=== PATIENT | female | born 1960 | race Caucasian/White ===

== ENCOUNTER → 2023-07-07 19:08 | Outpatient (REF) | payer BC, SELFPAY | LOC: MRI 19:08 | PROVIDERS: ATTENDING PHYSICIAN Nurse Practitioner Adult Health; FAMILY PHYSICIAN Nurse Practitioner | DX: G43.011 Migraine without aura, intractable, with status migrainosus (principal); R90.89 Other abnormal findings on diagnostic imaging of central nervous system | CPT/HCPCS: 70553; A9575 ==

== ENCOUNTER 2023-07-25 22:47 | Inpatient (IN) | payer BC, SELFPAY ==
[2023-07-25 16:34] VITALS: BP 146/74
[2023-07-25 16:59] LABS: % Basophils 0.2 % (0-2); % Eosinophils 0.2 % (0-6); % Immature Granulocytes 0.4 % (0-0.5); % Lymphocytes 1.4 % (20.5-51.1); % Monocytes 2.3 % (1.7-9.3); % Neutrophils 95.5 % (42.2-75.2); Absolute Immature Granulocytes 0.1 10^3/uL (0-0.05); Absolute Lymphocytes 0.2 10^3/uL (1.2-3.4); Absolute Monocytes 0.4 10^3/uL (0.1-0.6); Absolute Neutrophils 16.5 10^3/uL (1.4-6.5); Hematocrit 32.7 % (37.0-47.0); Hemoglobin 11.2 g/dL (12.0-16.0); Mean Corp Hgb Conc. 34.3 g/dL (33.0-37.0); Mean Corpuscular Hgb 30.8 pg (27.0-31.0); Mean Corpuscular Volume 89.8 fL (81.0-99.0); Mean Platelet Volume 9.6 fL (7.4-10.4); Nucleated Red Blood Cells % 0 %; Platelet Count 391 10^3/uL (130-400); Red Blood Cell Count 3.64 10^6/uL (4.20-5.40); Red Cell Dist. Width 13.5 % (11.5-14.5); White Blood Cell Count 17.2 10^3/uL (4.8-10.8)
[2023-07-25 17:14] LABS: COVID-19 Antigen Negative (Negative)
[2023-07-25 17:30] LABS: ALT (SGPT) 20 U/L (0-35); AST (SGOT) 30 U/L (14-36); Albumin 3.6 g/dl (3.5-5.0); Alkaline Phosphatase 91 U/L (38-126); Blood Urea Nitrogen 14 mg/dl (7-17); Calcium 9.2 mg/dl (8.4-10.2); Carbon Dioxide 29 mmol/L (22-30); Chloride 94 mmol/L (98-107); Glucose 198 mg/dl (70-99); Potassium 3.6 mmol/L (3.5-5.1); Sodium 133 mmol/L (135-145); Total Bilirubin 0.7 mg/dl (0.2-1.3); Total Protein 6.8 g/dl (6.3-8.2); eGFR > 60.00
[2023-07-25 20:01] VITALS: BMI 20.5
[2023-07-25 20:05] VITALS: BP 146/75
[2023-07-25] MEDS: DUONEB 3 ML INH (21:02)
[2023-07-25] MEDS: DECADRON 10 MG IV (21:15)
[2023-07-25 21:29] LABS: NT-proBNP 161 pg/ml
--- NOTE | 2023-07-25 21:38 | HPS.HSE ---
Family Physician
-
Family Physician: FCO Castellanos
Chief Complaint
-
sob
cough
History of Present Illness
63-year-old with past medical history for sarcoidosis presented to us with productive cough, short of breath since Tuesday short of breath worse with activity her oxygen was low in 60s at home with ambulation. Patient thinks she may have had a
fever at home over the weekend. Patient did not check the temperature. Stated headache. Denied dizziness focal episode. Patient was nauseous at home. Denied abdominal pain, vomiting, diarrhea. Patient denied dysuria, hematuria.
High 80s on room air. Patient received dose of steroids, antibiotics in the ER. Chest x-ray with severe sarcoidosis. Further management.
Medical History
Past Medical History
Past Medical History: Reports Other
Additional Past Medical History:
Sacral disease
General anxiety disorder
Past Surgical History: Reports Other
Additional Past Surgical History:
Cholecystectomy
Bilateral breast implants
Social History
Alcohol: None
Drug: None
Personal:
Living: With Family
Family History
Family History: Not pertinent
Allergies / Home Medications
Allergies reflects when Allergies were last updated in [facility].
Home Medications with original date entered in [facility]
Allergy/Medication List:
Allergies
Allergy/AdvReac Type Severity Reaction Status Date / Time
hydromorphone HCl AdvReac Nausea / Verified 07/25/23 16:34
[From Dilaudid] Vomiting
Home Medications
albuterol sulfate 90 mcg/actuation aerosol inhaler (Ventolin HFA) 1 puff inhalation PRN PRN sob 08/14/14
azathioprine 50 mg tablet 150 mg PO DAILY 08/14/14
bupropion HCl 150 mg tablet,12 hr sustained-release 450 mg PO DAILY 08/14/14
cetirizine 10 mg tablet 10 mg PO DAILY 08/14/14
fluticasone 250 mcg-salmeterol 50 mcg/dose blistr powdr for inhalation (Advair Diskus) 1 puff inhalation PRN PRN sob 08/14/14
hydrocodone 5 mg-acetaminophen 300 mg tablet (Vicodin) 1 ea PO PRN PRN pain 08/14/14
hydrocodone 5 mg-acetaminophen 325 mg tablet 1 tab PO Q4HPRN PRN pain #15 tabs 08/14/14
naproxen sodium 220 mg tablet (Aleve) 220 mg PO DAILY 08/14/14
ondansetron HCl 4 mg tablet 8 mg PO PRN PRN nausea 08/14/14
Review of Systems
-
Constitutional: Reports Fever
EENT: Reports No Symptoms
Respiratory: Reports Cough and Trouble Breathing
Cardiac: Reports No Symptoms
Abdomen/GI: Reports No Symptoms
: Reports No Symptoms
Musculoskeletal: Reports No Symptoms
Skin: Reports No Symptoms
Neurological: Reports No Symptoms
Endocrine: Reports No Symptoms
Hematologic/Lymphatic: Reports No Symptoms
Psych: Reports No Symptoms
Physical Exam
Vital Signs
Vital Signs
Temp Pulse Resp BP Pulse Ox
98.4 F 112 18 146/75 93
07/25/23 16:34 07/25/23 16:34 07/25/23 16:34 07/25/23 20:05 07/25/23 20:15
Physical Exam
General: Well Developed, Well Nourished and No Apparent Distress
HEENT: NormoCephalic, Moist mucous membranes and Atraumatic
Respiratory: Clear
Cardiac: S1/S2 and Regular Rhythm; No Murmur or Rub
GI: Soft, Non Tender, Non Distended and Normal Bowel Sounds; No Organomegaly
Rectal: Deferred by Provider
Musculoskeletal: No Clubbing, No Cyanosis and No Edema
Skin: No Rash
Neuro: AO x 3 and Nonfocal/grossly intact
Psych: Calm
Laboratory Results
-
07/25/23 16:47
07/25/23 16:46
Laboratory Results
Total Bilirubin 0.7 mg/dl (0.2-1.3) 07/25/23 16:46
AST 30 U/L (14-36) 07/25/23 16:46
ALT 20 U/L (0-35) 07/25/23 16:46
Alkaline Phosphatase 91 U/L (38-126) 07/25/23 16:46
Data Reviewed
-
Diagnostic Radiology: Report Reviewed by me
Lab Data: Labs Reviewed by me
Impression/Plan
-
# Acute hypoxemia /sarcoidosis/likely superimposed pna
-sepsis as evident by tachycardia and elevated wbc
-Chest x-ray with impression of SEVERE SARCOIDOSIS with severe interstitial disease and scarring throughout both lungs.Extensive calcified mediastinal lymphadenopathy. Moderate to severe pleural thickening in the superior left hemithorax and mild
pleural thickening in the superior right hemithorax which appears unchanged.
-COVID-negative and influenza
-Ceftriaxone and Zithromax in ER
-hold abx
-Dexamethasone continued
-Continue supplemental oxygen to keep sat greater than 92
-pulmonology consulted
#hyponatremia likely pseudo due to hyperglycemia
-corrected sodium 135
-ctm
#hyperglycemia likely from steroids
-blood sugar elevated in ER
-sliding scale
-obtain a1c in the am
#DVT prophylaxis
-Lovenox
#CODE status
-full code
--- NOTE | 2023-07-25 21:42 | ED.GENMED ---
History of Present Illness
General
Chief Complaint: Breathing Problem
Source: patient
Exam Limitations: none
Time Seen by Provider: 07/25/23 19:59
Nursing documentation reviewed up to this point in time: agreed with
Travel History
Have you had any contact with someone who has COVID-19?: No
Do you have any symptoms of coronavirus? Fever > 100 degrees, chills, cough, shortness of breath, sore throat, loss of taste or smell, muscle aches, or headache?: No
History of Present Illness
History of Present Illness:
63-year-old female past medical history of sarcoidosis depression presenting to the emergency department today with concerns of worsening dyspnea on exertion and low pulse ox with ambulation over the past few days also start cold and flu she had a
temperature a few days ago. Denies any significant leg swelling recent trauma surgery immobilization. Has been taking methotrexate and steroids for her sarcoidosis.
Past History
Past History
ED Past Medical History: Other (sarcoidosis)
ED Past Surgical History: Cholecystectomy, and Other (Breast augmentation)
Social History
Tobacco: Non-smoker
Alcohol: Occasional
Drug: None
Personal:
Living: with family
Employment: Not employed
Review of Systems
Review of Systems
Allergies reviewed?: Yes
All Other Systems: ROS reviewed and negative except as documented in HPI and ROS
Phy Exam
Physical Exam
Physical Exam:
GENERAL: Alert , in no apparent distress
EYE: pupils equal and reactive
NECK: Supple, no significant adenopathy.
ENT: o/p clr, mmm.
CARDIAC: Regular rate and rhythm .
LUNGS: Some degree of rhonchi to the right lower lobe otherwise diminished
ABDOMEN: Soft, without focal tenderness, no r/g, no cvat
NEUROLOGICAL: Alert and oriented, no focal neuro deficits
SKIN: Warm and dry, skin intact.
MUSCULOSKELETAL: No edema, well perfused.
PSYCH: Normal and appropriate interaction.
Scores
Heart Failure Risk
Heart Failure Risk Score: Not Applicable
Course
Orders/Labs/Results
Orders:
Orders
07/25/23 16:38
Chest [CR Chest - 2 Views ] Urgent
Comment:
Reason For Exam: SOB
07/25/23 16:46
Comprehensive Metabolic Panel Urgent
07/25/23 16:47
COVID-19 Antigen Urgent
Source: Nasal Swab
Complete Blood Count/With Diff Urgent
NT-proBNP Urgent
Comment: ADD ON
INF RAPID [Influenza A+B Rapid Molecular] Urgent
CLARI Source: Nasal Swab
Specimen Description:
07/25/23 19:59
Add On- LAB Urgent
Tests Added?: BNP
07/25/23 20:51
Dexamethasone Sod Phosphate [Decadron] 10 mg IV NOW STA
Ipratropium/Albuterol Sulfate [Duoneb] 3 ml INH R NOW ONE
07/25/23 21:30
Azithromycin [Zithromax] 500 mg PO NOW STA
CefTRIAXone [Rocephin] 2,000 mg IV NOW STA
07/25/23 21:42
Sterile Water [Sterile Water For Injection] 20 ml .ROUTE .STK-MED
07/25/23 21:47
Acetaminophen [Tylenol] 650 mg PO NOW STA
07/25/23 21:50
Acetaminophen [Tylenol] 650 mg .ROUTE .STK-MED ONE
07/25/23 21:54
Admit/Transfer Patient As Directed
Co-Sign Provider:
Level of Care: Inpatient admission
Assign to:: Telemetry
Physician / Group: [email or web address]
Diagnosis: sarcodiosis
Reason for Telemetry: Arrhythmia
Date to Stop Telemetry: 07/28/23
Time to Stop Telemetry: 11:00
Reason for Hospitalization: sarcoidosis
Expected length of stay greater than two midnights?: Yes
ELOS- Estimated Length of Stay in days: 3
I certify the patient meets the requirements for IP care: Yes
07/25/23 21:58
Code Status As Directed
Resuscitation Status: Full Code
07/25/23 22:00
Flush (0.9% Sodium Chloride) [Flush (Nss)] See Dose Instructions IV PER PROTOCOL
07/28/23 11:00
DC Protocol for Telemetry ONCE
Abnormal Lab Results
07/25/23 07/25/23
16:46 16:47
WBC 17.2 H 10^3/uL
(4.8-10.8)
RBC 3.64 L 10^6/uL
(4.20-5.40)
Hgb 11.2 L g/dL
(12.0-16.0)
Hct 32.7 L %
(37.0-47.0)
Abs Immat Gran (auto) 0.1 H 10^3/uL
(0-0.05)
Absolute Neuts (auto) 16.5 H 10^3/uL
(1.4-6.5)
Absolute Lymphs (auto) 0.2 L 10^3/uL
(1.2-3.4)
Neutrophils % 95.5 H %
(42.2-75.2)
Lymphocytes % 1.4 L %
(20.5-51.1)
Sodium 133 L mmol/L
(135-145)
Chloride 94 L mmol/L
(98-107)
Glucose 198 H mg/dl
(70-99)
07/25/23 16:47
07/25/23 16:46
Vital Signs
Initial and Last Documented VS:
Initial Vital Signs
Temp Pulse Resp BP Pulse Ox
98.4 F 112 18 146/74 94
07/25/23 16:34 07/25/23 16:34 07/25/23 16:34 07/25/23 16:34 07/25/23 16:34
Last Documented Vital Signs
Temp Pulse Resp BP Pulse Ox
98.4 F 112 18 146/75 93
07/25/23 16:34 07/25/23 16:34 07/25/23 16:34 07/25/23 20:05 07/25/23 20:15
MDM/Problems Addressed
MDM/Problems Addressed:
63-year-old female presenting to the emergency department today with concerns of worsening shortness of breath with exertion and low pulse ox with ambulation as well as subjective fevers over the past few days. Upon arrival here but tachycardic to
110s white count 17.2 with left shift otherwise BNP not significantly elevated chest x-ray showing some very severe likely sarcoidosis findings. Concerning her left shift and white count as well as being immunosuppressed patient was started on
antibiotics for possible superimposed pneumonia. Also was given nebs and steroids. Plan to admit for further monitoring and treatment.
*Critical Care Note
Total Time (30-74mins, 75-104mins- exclusive of procedures): Not Applicable
ED Attending Note
-
Portions of this chart may have been created with voice recognition software.� Occasional wrong word or��sound alike� substitutions may have occurred due to the inherent limitations of voice recognition software.
Discharge Plan
Departure
Patient Disposition: Admit
Date of Disposition: 07/25/23
Time of Disposition: 22:13
Admit to: Telemetry
Admit to doctor: Jose Luisy
Presentation/result/management discussed w/ accepting MD/DO: Hospitalist
Patient with high blood pressure during this ER visit?: No
Condition: Good
Covid-19: Not Applicable
Discharge Problem:
Sarcoidosis, Hypoxemia
Prescriptions:
No Action
bupropion HCl 150 MG tablet sustained-release 12 hr
150 mg PO DAILY@1400
Patient Comments:
07/25/2023: taken w/ 300mg = 450mg
ondansetron HCl 4 MG tablet
4 mg PO Q12H PRN (Reason: nausea)
albuterol sulfate [Ventolin HFA] 90 MCG/PUFF HFA aerosol inhaler
2 puff inhalation R Q6 PRN (Reason: sob/wheezing)
prednisone 5 mg tablet
15 mg PO DAILY@1400
methotrexate sodium 2.5 mg tablet
7.5 mg PO ALANIZ
folic acid 1 mg tablet
1 mg PO DAILY@1400
omeprazole magnesium [Prilosec OTC] 20 mg Tablet,Delayed Release (Dr/Ec)
20 mg PO DAILY@1400
bupropion HCl 300 mg tablet extended release 24 hr
300 mg PO DAILY@1400
Patient Comments:
07/25/2023: taken w/ 150mg = 450mg
Referrals:
Stefany Toribio CRNP [Family Provider] -
Interventions
Interventions:
*Risk Screen - Suicide Last Done: 07/25/23 16:34
*General Assessment Last Done: 07/25/23 16:34
*Neglect/Abuse Screening Last Done: 07/25/23 21:56
ED- Fall Risk Assessment Last Done: 07/25/23 20:01
*ED COVID-19 Vaccine History Last Done: 07/25/23 16:34
ED- Cardiac Assessment Last Done: 07/25/23 20:01
ED- Pulmonary Assessment Last Done: 07/25/23 20:01
Discharge Date and Time
Print Language: GEORGIAN
[2023-07-25] MEDS: ZITHROMAX 500 MG PO (21:45)
[2023-07-25] MEDS: ROCEPHIN 2000 MG IV (21:45)
[2023-07-25] MEDS: TYLENOL 650 MG PO (21:51)
[2023-07-25 22:00] VITALS: BP 135/67
--- NOTE | 2023-07-25 22:25 | W.PN.UPDATE ---
Update Note
Progress Note Update
This note serves as an addendum to the H&P by instructional services librarian VIPUL Mara GAO on 07/25/23
HPI:
63F HX sarcoidosis, chr prednisone dependent, not on home O2 f/u au [facility] Pul group pw confestive cough but unable to produce sputun, progresiived Hernández over 1 week. Reported feverish without chills at home but not recorded T.
No fever at ER.
POx 80 on RA.
HX Sarcoid or 15 yrs
On and off on Imuran
5 yrs ago filed to respond to immuran
On chronic prednisone 20 mg daily till April 2023
In April this yr , reduced PO prednisone to 15 mg and added MTX
Follow [facility] Primary Pul Dr Elizondo at [facility]/ [facility]
ROS
No CP
POS ROMERO
No abdominal pain, vomiting, diarrhea.
At ER: VS: Afebrile ST 112 BP 145/ 75 POx 93 on RA
CXR: severe sarcoidosis
PMHx;
Sarcoidosis
General anxiety disorder
PSHx
Cholecystectomy
Bilateral breast implants
Reviewed VS: Afebrile ST 112 BP 145/ 75 POx 93 on RA
PE:
Gen: NAD, not toxic
HEENT: anicteric , moist OM
Neck: supple, no JVD
Lungs:
Cor: RRR ST , no mm
Abdomen: soft benign
INKER MACHINE: AAO3, NFND
MS: no edema
Psych: calm
Data
WCC 17 - bl 7.9
NEG Covid
NEG Flu A & B
CXR
1. SEVERE SARCOIDOSIS with severe interstitial disease and scarring throughout both lungs.
2. Extensive calcified mediastinal lymphadenopathy.
3. Moderate to severe pleural thickening in the superior left hemithorax and mild pleural thickening in the superior right hemithorax which appears unchanged.
No prior hospitalist admission:
ASSESSMENT & PLAN
Progressive SoB with episodes of exertional hypoxia as low as 60 % at home but at ER as low as 93 %
Underlying severe sarcoidosis ILDz flare
Extensive calcified mediastinal lymphadenopathy.
Moderate to severe pleural thickening i appears unchanged.
- NEG Covid, Neg Flu A & B
- check PCT
- check SHARDA level
- ER initiated Ceftriaxone and Zithromax in ER - cont till further eval for Pul in AM
- IV Dexamethasone 4mg q12h. At home in place of PO Prednisone 15 mg daily at home
- cont. MTX weekly on Tuesday
- Continue supplemental O3 to keep sat greater than 92
- Home O2 evaluation prior to DC
- Pul consult
HX Sarcoid or 15 yrs
On and off on Imuran for last 5 yrs
5 yrs ago noted failed to respond to Imuran and chronic prednisone 20 mg daily till April 2023
In April this yr , reduced PO prednisone to 15 mg and added MTX in place of Imuran
Follow with Primary Pul [facility] Elizondo [facility]
leukocytosis likely from steroids
-wbc 17
-afebrile
- Trend WCC
Hyponatremia likely pseudo due to hyperglycemia
-corrected sodium 135
Hyperglycemia suspect steroid induced
Denied HX DM
- check A1
- add ISS low
DVT Px: LMWH
Code: Full
IP TLM
[2023-07-25 23:00] VITALS: BP 135/72
[2023-07-25 23:59] LABS: Procalcitonin < 0.05 ng/ml (0.0-0.25)
[2023-07-26] VITALS (11 sets, daily range): BP systolic 121–167; BP diastolic 70–92; BMI 19.9
[2023-07-26 06:39] LABS: Hemoglobin 11.4 g/dL (12.0-16.0); Mean Corp Hgb Conc. 33.5 g/dL (33.0-37.0); Mean Corpuscular Hgb 30.6 pg (27.0-31.0); Mean Corpuscular Volume 91.2 fL (81.0-99.0); Mean Platelet Volume 9.7 fL (7.4-10.4); Platelet Count 393 10^3/uL (130-400); Red Blood Cell Count 3.73 10^6/uL (4.20-5.40); Red Cell Dist. Width 13.5 % (11.5-14.5); White Blood Cell Count 13.8 10^3/uL (4.8-10.8)
[2023-07-26 07:03] LABS: Blood Urea Nitrogen 11 mg/dl (7-17); Calcium 9.8 mg/dl (8.4-10.2); Carbon Dioxide 29 mmol/L (22-30); Chloride 98 mmol/L (98-107); Estimated Creatinine Clearance 78 ml/min; Glucose 115 mg/dl (70-99); Sodium 136 mmol/L (135-145); eGFR > 60.00
[2023-07-26 07:08] LABS: Potassium 4.3 mmol/L (3.5-5.1)
[2023-07-26] MEDS: DECADRON 4 MG IV ×2 (08:32→17:00)
[2023-07-26 09:29] LABS: Glucose - Point of Care 110 mg/dl (70-99)
[2023-07-26 09:31] LABS: Glycohemoglobin (HgbA1c) 5.9 % (4.0-5.6)
--- NOTE | 2023-07-26 10:16 | CON.PUL ---
Consultation
Consultation Request
Date/Time Consultation Requested: 07/25/2023 - 2340
Date/Time Consultation Performed: 07/26/2023 - 954
Requesting Provider: FCO Deleon
Performing Provider: Justice Bustillo MD
Reason for Consultation: Hypoxia; hx of sarcoidosis
Medical History
-
Chief Complaint: SOB
History of Present Illness:
63-year-old female with a past medical history of sarcoidosis, migraine headaches, LILIAN and insomnia who presents with shortness of breath and hypoxia with ambulation. She feels that she also has a cold. Patient afebrile in the ER to 98.4 �F,
tachycardic to 112, breathing at 18 breaths/min, saturating 94% on room air and BP 146/74. Labs showed leukocytosis to 17.2, Hb 11.2, sodium 133, serum chloride 94, glucose 198, procalcitonin <0.05. COVID antigen negative. Flu A/B swab also
negative. CXR shows severe reticulonodular interstitial disease throughout both lungs, upper lobe predominantly, with chronic opacities seen in the left upper lobe and lower lobe predominant GGO. Patient admitted to the hospitalist service,
started on antibiotics for possible CAP, also started on steroids with Decadron and now pulmonary consulted for additional recommendations.
When I saw the patient she was in bed, daughter at bedside, and patient was on 3 L/min nasal cannula breathing comfortably. She says she started to feel sick on Tuesday and then her symptoms be continuously progressed and that is what landed her
here in the ER. 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 After rest it only improved to 81%. 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 She follows with Dr. Elizondo at
[facility]. She is currently on methotrexate and prednisone 15mg daily. She had tried Imuran from December-March 2023, but her dry cough and fatigue persisted so it was stopped. She says she was diagnosed initially with sarcoidosis here
[facility] 'years ago' via a CXR. She never obtained a Bx before of her lung or skin, other organ. She has never required oxygen before. She feels like she has phlegm in her chest but she cannot get it out. She checks her home pulse
oximetry from time to time and it is usually over 90-94%. She currently denies headache, chest pain, abdominal pain, diarrhea, fevers or chills.
PMHx: LILIAN, pulmonary sarcoidosis, history of OCD, migraine headaches, insomnia
PSHx: Cholecystectomy, breast augmentation (1997), section (2004)
Past Medical History
Past Medical History: Other (Above as per HPI)
Past Surgical History: Other (Above as per HPI)
Social History
Tobacco: Former Smoker (Quit >10 years ago)
Alcohol: Occasional
Drug: None
Family History
Family History: CAD (Father), Cancer (Mother: Uterine cancer (father: Prostate cancer) and Other (Father: Hypercholesterolemia)
Allergies / Home Medications
Allergies
Allergy/AdvReac Type Severity Reaction Status Date / Time
hydromorphone HCl Allergy Nausea / Verified 07/25/23 23:42
[From Dilaudid] Vomiting
Home Medications
�Medication �Instructions �Recorded �Confirmed �Last Taken �Type
albuterol sulfate 90 mcg/actuation 2 puff inhalation R Q6 PRN 08/14/14 07/25/23 08/14/14 History
aerosol inhaler (Ventolin HFA) sob/wheezing
bupropion HCl 150 mg tablet,12 hr 150 mg PO DAILY@1400 depression 08/14/14 07/25/23 07/25/23 History
sustained-release
ondansetron HCl 4 mg tablet 4 mg PO Q12H PRN nausea 08/14/14 07/25/23 07/24/23 History
bupropion HCl 300 mg 24 hr tablet, 300 mg PO DAILY@1400 07/25/23 07/25/23 07/25/23 History
extended release
folic acid 1 mg tablet 1 mg PO DAILY@1400 depression 07/25/23 07/25/2307/24/24 History
methotrexate sodium 2.5 mg tablet 7.5 mg PO ALANIZ sarcoidosis 07/25/23 07/25/23 8 Days Ago History
~07/17/23
omeprazole magnesium 20 mg 20 mg PO DAILY@1400 07/25/23 07/25/23 07/25/23 History
tablet,delayed release (Prilosec Gastrointestinal Issue
OTC)
prednisone 5 mg tablet 15 mg PO DAILY@139907/25/23 07/25/23 07/25/23 History
Anti-Inflammatory
Review of Systems
-
History Source: Patient
All other systems: Negative unless noted (12 point ROS performed and is negative unless mentioned above.)
Vitals / Labs / Diagnostic Testing
Vital Signs
Temp Pulse Resp BP Pulse Ox
97.8 F 102 23 143/72 97
07/26/23 07:52 07/26/23 09:00 07/26/23 09:00 07/26/23 07:00 07/26/23 09:03
Lab Data
07/26/23 06:20
07/26/23 06:20
Microbiology
07/25/23 16:47 Nasal Swab Influenza Types A & B (DIPIKA) - Final
Negative for Influenza A & B, NAAT
Negative results must be combined with clinical observations
and patient history.
Nucleic Acid Amplification test (NAAT)performed on the
[employer] platform.
Diagnostic Testing:
Physical Exam
-
HEENT: Normocephalic and Anicteric
Cardiovascular: S1/S2 and Peripheral Edema (negative)
Respiratory: Wheeze (negative), Rales (bilaterally in upper lobes predominantly), Rhonchi (negative), Non-Labored Respirations and Other (Reduced BS at bases b/l)
GI: Soft, Non Distended and Non Tender
Neurology: AO x 3 and Tremors (negative)
Skin: Warm, Dry and Other (no clubbing appreciated)
General: Comfortable and Chills (negative)
Assessment
-
Assessment: 63-year-old female with a past medical history of sarcoidosis, migraine headaches, LILIAN and insomnia who presents with shortness of breath and hypoxia with ambulation. She feels that she also has a cold. Patient afebrile in the ER to
98.4 �F, tachycardic to 112, breathing at 18 breaths/min, saturating 94% on room air and BP 146/74. Labs showed leukocytosis to 17.2, Hb 11.2, sodium 133, serum chloride 94, glucose 198, procalcitonin <0.05. COVID antigen negative. Flu A/B swab
also negative. CXR shows severe reticulonodular interstitial disease throughout both lungs, upper lobe predominantly, with chronic opacities seen in the left upper lobe and lower lobe predominant GGO. Patient admitted to the hospitalist service,
started on antibiotics for possible CAP, also started on steroids with Decadron and now pulmonary consulted for additional recommendations.
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
Impression:
#Acute hypoxic respiratory failure due to ILD/sarcoidosis flare - I suspect she was exposed to a respiratory virus and that triggered a flare
#Pulmonary sarcoidosis with extensive mediastinal LN - stage IV on MTX and chronic prednisone (15mg daily)
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
#Suspected CAP (likely viral)
#Anemia
#Hyperglycemia - improved
Plan:
- Continue systemic steroids and wean as tolerated --> change from decadron 4mg IV q12hr to solumedrol 40mg IV q6hr
- Continue empiric Abx but with negative procal and CXR unchanged from prior in Mar 2023, unclear if she even needs Abx
- Given her unchanged CXR and her continued SOB and acute hypoxia, check CT chest to assess lung parenchyma better
- Hold MTX for now
- Trend WBC
- Check sputum Cx if she can produce a decent sample
- Start mucinex
- Maintain SpO2 >90-94% with supplemental O2 as needed
- Incentive spirometer
- Replete electrolytes with K>4, Mg>2
- Maintain euglycemia with goal BG >100 and <180
- prn nebulized bronchodilators
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 Elizondo from [facility]
- DVT ppx
Pulmonary service will continue to follow along.
Total time spent today was 75 minutes for this encounter. Time includes reviewing laboratory test/imaging results, reviewing pertinent medical records, obtaining and reviewing medical history, performing an appropriate exam, ordering medications,
tests and procedures. Time also includes documentation of this encounter, coordinating patient care and communicating with other healthcare professionals. Total time does not include separately billed tests performed on this date of service.
Data:
CXR 07-25-2023:
1. SEVERE SARCOIDOSIS with severe interstitial disease and scarring throughout both lungs.
2. Extensive calcified mediastinal lymphadenopathy.
3. Moderate to severe pleural thickening in the superior left hemithorax and mild pleural thickening in the superior right hemithorax which appears unchanged.
--- NOTE | 2023-07-26 11:29 | W.PN.HOSP.TC ---
Today's Communication/Plan
-
Continue with current treatments
Wean oxygen
Await pulmonary input.
Assessment / Plan
Assessment / Plan
# Acute hypoxic respiratory insufficiency - pt with severe sarcoidosis with recent change in regimen to steroids and MTX .
Her symptoms started after having upper respiratory tract infection symptoms including runny nose, cough and scanty phlegm.
-Chest x-ray with impression of SEVERE SARCOIDOSIS with severe interstitial disease and scarring throughout both lungs.Extensive calcified mediastinal lymphadenopathy. Moderate to severe pleural thickening in the superior left hemithorax and mild
pleural thickening in the superior right hemithorax which appears unchanged.
-COVID-negative and influenza
-Procalcitonin normal
-Suspect an acute bronchitis causing his symptoms. Doubt due to sarcoidosis flare but again she had recent changes in treatment regimen cannot can close rule out worsening sarcoidosis. Consult pulmonary.
-hold abx
-Dexamethasone continued
-Continue supplemental oxygen to keep sat greater than 92
-pulmonology consulted
-sepsis as evident by tachycardia and elevated wbc
#hyponatremia mild
-now normal
-ctm
#hyperglycemia likely from steroids
-blood sugar elevated in ER
-HbA1c 5.9
#DVT prophylaxis
-Lovenox
#CODE status
-full code
Anticipated Discharge: 24 - 48 hours
Subjective/Interval History
-
Date of Service: July 26, 2023
Still with cough and need of oxygen
Feels SOB mostly with exertion
Unable to bring phlegm up;no wheezing
Not had to use O2 in past
No CP;no N/V
[place] chills at home but no fevers
Had runny nose prior to this
Objective Data
-
Labs:
Laboratory Results
07/26/23
06:20
WBC 13.8 H
Hgb 11.4 L
Hct 34.0 L
Plt Count 393
Sodium 136
Potassium 4.3
Chloride 98
Carbon Dioxide 29
BUN 11
Creatinine 0.4 L
Glucose 115 H
Calcium 9.8
Vital Signs:
Vital Signs
Temp Pulse Resp BP Pulse Ox
97.8 F 102 23 143/72 97
07/26/23 07:52 07/26/23 09:00 07/26/23 09:00 07/26/23 07:00 07/26/23 09:03
I&O
07/25/23 07/26/23 07/27/23
06:59 06:59 06:59
Output Total 400 / 400
Balance -400 / -400
Review of Systems
-
EENT: Denies Sore Throat
Neuro: Denies Dizzy
Physical Exam
-
General: No Apparent Distress
HEENT: Moist Mucous Membranes
Respiratory: Crackles (left base ;bronchial breathign in right lower zone) and Non Labored Respirations; Negative Wheezes or Accessory Resp Muscle Use
Cardiac: Regular Rhythm and S1/S2
GI: Soft
Musculoskeletal: No Edema
Neuro: AO x 3
Data Reviewed
-
Labs: Labs Reviewed by me
[2023-07-26] MEDS: WELLBUTRIN XL (24 hour extended release) 150 MG PO (14:44)
[2023-07-26] MEDS: FOLVITE 1 MG PO (14:45)
[2023-07-26] MEDS: PROTONIX 40 MG PO (14:45)
[2023-07-26] MEDS: WELLBUTRIN XL (24 hour extended release) 300 MG PO (15:22)
--- NOTE | 2023-07-26 17:45 | PTCARENOTE ---
Received pt from ER.Pt awake, alert and oriented x3. Pt has no c/o pain at this time. VSS 98% on 3L, continues with NPC and PRESCOTT. Pt NSR-ST on tele. Pt oriented to room, call valenzuela within reach, plan of care ongoing.
[2023-07-26 18:06] LABS: Glucose - Point of Care 136 mg/dl (70-99)
[2023-07-26] MEDS: NOVOLOG FLEXPEN-LOW RESISTANCE SC (18:13)
[2023-07-26] MEDS: LOVENOX 40 MG SC (18:20)
[2023-07-26] MEDS: MUCINEX 1200 MG PO (20:07)
[2023-07-26] MEDS: SOLU-MEDROL PF 40 MG IV (21:34)
[2023-07-26 21:46] LABS: Glucose - Point of Care 156 mg/dl (70-99)
[2023-07-27 03:35] VITALS: BP 137/77
[2023-07-27] MEDS: SOLU-MEDROL PF 40 MG IV ×3 (04:40→18:07)
--- NOTE | 2023-07-27 04:53 | DOWNTIME ---
There was a [employer] Client Director [employer]ris Downtime on 07/27/2023 from 0100 to 07/27/2023 at 0439. Downtime documentation of patient's care, including medication administrations, has been reconciled in the electronic record per guidelines. Refer to the
patient's paper chart under the miscellaneous tab to see printed paper medication records and downtime forms.
[2023-07-27 07:30] VITALS: BP 134/85
[2023-07-27 07:38] LABS: Glucose - Point of Care 124 mg/dl (70-99)
[2023-07-27] MEDS: NOVOLOG FLEXPEN-LOW RESISTANCE SC (07:47)
--- NOTE | 2023-07-27 07:48 | W.PN.PUL3 ---
Today's Communication / Plan
-
Systemic steroids with wean as she clinically improves
Supportive care
Supplemental oxygen to maintain SpO2 >90-94%
Ambulatory pulse oximetry prior to discharge
Mucolytucs
Check sputum Cx if pt can produce decent sample
Assessment
-
Assessment: 63-year-old female with a past medical history of sarcoidosis, migraine headaches, LILIAN and insomnia who presents with shortness of breath and hypoxia with ambulation. She feels that she also has a cold. Patient afebrile in the ER to
98.4 �F, tachycardic to 112, breathing at 18 breaths/min, saturating 94% on room air and BP 146/74. Labs showed leukocytosis to 17.2, Hb 11.2, sodium 133, serum chloride 94, glucose 198, procalcitonin <0.05. COVID antigen negative. Flu A/B swab
also negative. CXR shows severe reticulonodular interstitial disease throughout both lungs, upper lobe predominantly, with chronic opacities seen in the left upper lobe and lower lobe predominant GGO. Patient admitted to the hospitalist service,
started on antibiotics for possible CAP, also started on steroids with Decadron and now pulmonary consulted for additional recommendations.
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
Impression:
#Acute hypoxic respiratory failure due to acute pneumonitis likely due to viral CAP, inducing an ILD/sarcoidosis flare
#Pulmonary sarcoidosis with extensive mediastinal LN - stage IV on MTX and chronic prednisone (15mg daily)
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
#CAP (viral)
#Anemia
#Hyperglycemia - improved
#Pre-diabetes mellitus (HbA1C: 5.9 - 07/26/2023)
Plan:
- Continue systemic steroids and wean as tolerated --> on 07/25 I changed decadron 4mg IV q12hr to solumedrol 40mg IV q6hr --> will wean this down today to 40mg IV q8hr
- DC Abx given negative procal and CXR unchanged from prior in Mar 2023 and suspected viral etiology to her current acute hypoxia
- Hold MTX for now
- Trend WBC
- Check sputum Cx if she can produce a decent sample
- Continue mucinex
- Maintain SpO2 >90-94% with supplemental O2 as needed with ambulatory pulse oximetry prior to discharge
- Follow up SHARDA level
- Incentive spirometer
- Replete electrolytes with K>4, Mg>2
- Maintain euglycemia with goal BG >100 and <180
- prn nebulized bronchodilators
- Obtain outpatient medical records from her shore worker, Dr. Elizondo from [facility]
- DVT ppx
Pulmonary service will continue to follow along. I advised to the patient that she can follow-up with me/us in the [facility] office, post hospitalization, so we can evaluate her in the short-term, and then she can continue following with her primary
shore worker afterwards. Patient agrees with this plan.
Total time spent today was 35 minutes for this encounter. Time includes reviewing laboratory test/imaging results, reviewing pertinent medical records, obtaining and reviewing medical history, performing an appropriate exam, ordering medications,
tests and procedures. Time also includes documentation of this encounter, coordinating patient care and communicating with other healthcare professionals. Total time does not include separately billed tests performed on this date of service.
Data:
CT Chest without Contrast 07-27-2023:
1. Moderate reticular interstitial thickening and bronchiectasis bilaterally, most pronounced within the upper lobes bilaterally. Calcified mediastinal lymph nodes. Findings are not significant change compared to prior CT, and are consistent with
chronic interstitial lung disease/sarcoidosis.
2. In addition, there is extensive superimposed groundglass opacity bilaterally and diffusely, which is new compared to prior CT dated 01/29/2023. Differential diagnosis includes superimposed infectious or inflammatory alveolitis, exacerbation of
interstitial lung disease, pulmonary hemorrhage, among others.
CXR 07-25-2023:
1. SEVERE SARCOIDOSIS with severe interstitial disease and scarring throughout both lungs.
2. Extensive calcified mediastinal lymphadenopathy.
3. Moderate to severe pleural thickening in the superior left hemithorax and mild pleural thickening in the superior right hemithorax which appears unchanged.
Subjective Data
-
Date of Service:
Date of Service: July 27, 2023
Chief Complaint: Pulmonary Follow Up
Subjective:
Patient seen and evaluated today at bedside. This morning was on 3 L/min nasal cannula but then was weaned down to room air saturating 94%. She still feels very short of breath when she exerts herself. Overall she is better than yesterday but
still not back to baseline. She is short of breath even after walking short distances, i.e. like walking to the bathroom. She denies chest pain, headache, fevers or chills.
Review of Systems
General: Other (Negative unless mentioned above)
Objective Data
Data Reviewed
Vital Signs / I&O / Oxygen:
Vital Signs
Temp Pulse Resp BP Pulse Ox
97.7 F 104 20 137/77 99
07/27/23 03:35 07/27/23 03:35 07/27/23 03:35 07/27/23 03:35 07/27/23 03:35
Intake and Output
07/26/23 07/27/23 07/28/23
06:59 06:59 06:59
Intake Total 960 / 960
Output Total 400 / 400
Balance -400 / -400 960 / 960
SaO2 99
Nasal Cannula flow liters per 3
minute
Physical Exam
General: Respiratory Distress (negative) and Comfortable
Cardiovascular: Peripheral Edema (negative) and Other (Tachycardic)
Respiratory: Wheeze (negative), Crackles (Velcro rales heard upon inspiration in the mid-upper lung mariscal) and Non-Labored Respirations
GI: Soft, Non Distended, Non Tender and Normal Bowel Sounds
Neurology: AO x 3 and Tremors (negative)
Skin: Warm and Dry
Labs/Micro/Reports
Microbiology
07/25/23 16:47 Nasal Swab Influenza Types A & B (DIPIKA) - Final
Negative for Influenza A & B, NAAT
Negative results must be combined with clinical observations
and patient history.
Nucleic Acid Amplification test (NAAT)performed on the
[employer] platform.
[2023-07-27 07:56] LABS: Hematocrit 34.6 % (37.0-47.0); Hemoglobin 11.8 g/dL (12.0-16.0); Mean Corp Hgb Conc. 34.1 g/dL (33.0-37.0); Mean Corpuscular Hgb 30.6 pg (27.0-31.0); Mean Corpuscular Volume 89.6 fL (81.0-99.0); Mean Platelet Volume 9.8 fL (7.4-10.4); Platelet Count 445 10^3/uL (130-400); Red Blood Cell Count 3.86 10^6/uL (4.20-5.40); Red Cell Dist. Width 13.6 % (11.5-14.5); White Blood Cell Count 22.7 10^3/uL (4.8-10.8)
[2023-07-27] MEDS: MUCINEX 1200 MG PO ×2 (08:57→20:15)
[2023-07-27 09:18] LABS: Blood Urea Nitrogen 14 mg/dl (7-17); Calcium 9.9 mg/dl (8.4-10.2); Carbon Dioxide 26 mmol/L (22-30); Chloride 101 mmol/L (98-107); Estimated Creatinine Clearance 77 ml/min; Glucose 114 mg/dl (70-99); Potassium 4.9 mmol/L (3.5-5.1); Sodium 135 mmol/L (135-145); eGFR > 60.00
--- NOTE | 2023-07-27 11:09 | W.PN.HOSP.TC ---
Today's Communication/Plan
-
cw steroids
consult ID
Assessment / Plan
Assessment / Plan
# Acute hypoxic respiratory insufficiency - pt with severe sarcoidosis with recent change in regimen to steroids and MTX .
- Her symptoms started after having upper respiratory tract infection symptoms including runny nose, cough and scanty phlegm.
-Chest x-ray with impression of SEVERE SARCOIDOSIS with severe interstitial disease and scarring throughout both lungs.Extensive calcified mediastinal lymphadenopathy. Moderate to severe pleural thickening in the superior left hemithorax and mild
pleural thickening in the superior right hemithorax which appears unchanged.
- CT chest 07/25-
1. Moderate reticular interstitial thickening and bronchiectasis bilaterally, most pronounced within the upper lobes bilaterally. Calcified mediastinal lymph nodes. Findings are not significant change compared to prior CT, and are consistent with
chronic interstitial lung disease/sarcoidosis.
2. In addition, there is extensive superimposed groundglass opacity bilaterally and diffusely, which is new compared to prior CT dated 01/29/2023. Differential diagnosis includes superimposed infectious or inflammatory alveolitis, exacerbation of
interstitial lung disease, pulmonary hemorrhage, among others.
-COVID-negative and influenza
-Procalcitonin normal
-Suspect an acute bronchitis causing his symptoms. Doubt due to sarcoidosis flare but again she had recent changes in treatment regimen cannot can close rule out worsening sarcoidosis. appt pulmonary input.
-She is feeling bit better -Dexamethasone continued
-hold abx ; consult ID
-Continue supplemental oxygen to keep sat greater than 92
-sepsis as evident by tachycardia and elevated wbc -follow
#hyponatremia mild
-now normal
-ctm
#hyperglycemia likely from steroids
-blood sugar elevated in ER
-HbA1c 5.9
#DVT prophylaxis
-Lovenox
#CODE status
-full code
Anticipated Discharge: > 48 hours
Subjective/Interval History
-
Date of Service: July 27, 2023
Feeling bit better With the breathing; not requiring oxygen. Still a lot of exertional shortness of breath. Still ongoing cough which is mostly dry.
No fever or chills.
Objective Data
-
Labs:
Laboratory Results
07/27/23
07:29
WBC 22.7 H
Hgb 11.8 L
Hct 34.6 L
Plt Count 445 H
Sodium 135
Potassium 4.9
Chloride 101
Carbon Dioxide 26
BUN 14
Creatinine 0.5 L
Glucose 114 H
Calcium 9.9
Vital Signs:
Vital Signs
Temp Pulse Resp BP Pulse Ox
98.6 F 108 18 134/85 93
07/27/23 07:30 07/27/23 07:30 07/27/23 07:30 07/27/23 07:30 07/27/23 07:30
I&O
07/26/23 07/27/23 07/28/23
06:59 06:59 06:59
Intake Total 960 / 960
Output Total 400 / 400
Balance -400 / -400 960 / 960
Review of Systems
-
Constitutional: Denies Fever or Chills
EENT: Denies Sore Throat
Respiratory: Reports Cough and Trouble Breathing
Cardiac: Denies Chest Pain
Abdomen/GI: Denies Abdominal Pain, Nausea or Vomiting
Neuro: Denies Dizzy or Headache
Physical Exam
-
General: No Apparent Distress
HEENT: Moist Mucous Membranes
Respiratory: Crackles (BL basilar areas) and Non Labored Respirations; Negative Wheezes or Accessory Resp Muscle Use
Cardiac: Regular Rhythm, S1/S2 and Tachycardic
GI: Soft
Neuro: AO x 3
Psych: Calm
Data Reviewed
-
CT Scan: Report Reviewed by me (CT A/P)
Labs: Labs Reviewed by me
[2023-07-27 11:14] VITALS: BP 150/88
--- NOTE | 2023-07-27 11:20 | CON.ID ---
Consultation
-
Date/Time Consultation Requested: 07/27/23 10:51
Date/Time Consultation Performed: 07/27/23 11:20
Requesting Provider: Dr Dee
Performing Provider: Dr Roy
Reason for Consultation: Eval for infectious pneumonia
Chief Complaint / Past History
Chief Complaint
shortness of breath, cough
History of Present Illness
Ms Enriquez is a 63 year old female with history of sarcoidosis on prednisone 15 mg PO qday and mtx 7.5 mg weekly, CHF who presented here 07/24 for one week of shortness of breath and NONproductive cough. Not typically on O2. Of note was on imuran
from dec-mar 2023, was on chronic prednisone 20 mg PO daily until 04/2023; she had a history of rash with sulfa. Subjective fever noted over the weekend none since. On the day of admission she reported hypoxemia on home pulse ox to the 60s. Also
some nausea. No dizziness, abdominal pain, vomiting, diarrhea, dysuria, hematuria. 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
Since arrival here she has been afebrile, bp stable, initially saturating 93-98% on 3L now saturating 94% on room air, WBC 17 on arrival 22 today, hgb 11.8, pt 445 today - increased, cr 0.5, a1c 5.9, bnp 161, procal negative at <0.05, covid ag neg,
CT chest: Moderate reticular interstitial thickening and bronchiectasis bilaterally, most pronounced within the upper lobes bilaterally. Calcified mediastinal lymph nodes. Findings are not significant change compared to prior CT, and are consistent
with chronic interstitial lung disease/sarcoidosis. extensive superimposed groundglass opacity bilaterally and diffusely, which is new compared to prior CT dated 01/29/2023, 07/24 CR: severe sarcoidosis. No blood cultures sent thus far - has not
been febrile, covid ag negative, influenza negative, Now on methylprednisone 40 mg IV q6, had doses of azithromycin and ceftriaxone - currently not on antibiotics
Past History
Additional Past Medical History:
LILIAN, pulmonary sarcoidosis, history of OCD, migraine headaches, insomnia
Additional Past Surgical History:
Cholecystectomy
Bilateral breast implants
c section
Allergy History:
hydromorphone HCl [From Dilaudid] Allergy (Verified 07/25/23 23:42)
Nausea / Vomiting
Sulfa (Sulfonamide Antibiotics) Allergy (Verified 07/26/23 18:32)
Rash
Medications Reviewed: Yes
Social History
Tobacco: Non-Smoker
Alcohol: None
Personal:
Family History
Family History: Not Pertinent
Review of Systems
Review of Systems
General: Fever; Negative Chills
All systems: All other systems were reviewed and were negative
Vital Signs
Temp Pulse Resp BP Pulse Ox
97.9 F 106 18 150/88 94
07/27/23 11:14 07/27/23 11:14 07/27/23 11:14 07/27/23 11:14 07/27/23 11:14
Physical Exam
Physical Exam
Constitutional: No Acute Distress and Comfortable
Cardiovascular: Regular Rate and S1/S2; Negative Murmur or Rub
Pulmonary: Symmetric, Wheezes (mild, diffuse) and Coarse; Negative Rales or Rhonchi
Gastrointestinal: Soft, Non Tender, Non Distended and Normal Bowel Sounds
Skin: Warm and Dry; Negative Rash or Jaundice
Neurological: Awake and Tremors
Lab / Diagnostic Study Results
07/27/23 07:29
07/27/23 07:29
Abs Immat Gran (auto) 0.1 10^3/uL (0-0.05) H 07/25/23 16:47
Absolute Neuts (auto) 16.5 10^3/uL (1.4-6.5) H 07/25/23 16:47
Absolute Lymphs (auto) 0.2 10^3/uL (1.2-3.4) L 04/15/24 16:47
Absolute Monos (auto) 0.4 10^3/uL (0.1-0.6) 07/25/23 16:47
Absolute Basos (auto) 0.0 10^3/uL (0-0.2) 07/25/23 16:47
Immature Gran % 0.4 % (0-0.5) 07/25/23 16:47
Neutrophils % 95.5 % (42.2-75.2) H 07/25/23 16:47
Lymphocytes % 1.4 % (20.5-51.1) L 07/25/23 16:47
Monocytes % 2.3 % (1.7-9.3) 07/25/23 16:47
Eosinophils % 0.2 % (0-6) 07/25/23 16:47
Basophils % 0.2 % (0-2) 07/25/23 16:47
Procalcitonin < 0.05 ng/ml (0.0-0.25) 07/25/23 23:17
Microbiology Results
Micro:
07/25/23 16:47 Influenza Types A & B (DIPIKA) - Final
Nasal Swab Negative for Influenza A & B, NAAT
Negative results must be combined with clinical observations
and patient history.
Nucleic Acid Amplification test (NAAT)performed on the
[facility] [employer] platform.
Assessment / Plan
Likely Viral Respiratory Infection vs ILD flare
Pulmonary Sarcoidosis - severe
on chronic prednisone 15 mg qday, Mtx weekly
off of imuran some time
Leukocytosis
- leukocytosis at least partially due to steroids
- appears to be improving on current steroids
- cough is nonproductive, if able to obtain a sample will follow up the culture however low clinical suspicion for bacterial pneumonia
- if fever then would send blood cultures x2
- would not recommend further antibiotics at this time
- last 3 months prednisone dose is not typically associated with opportunistic infections, if not improving could consider further workup however, I am cautiously optimistic that she is already improving
[2023-07-27 12:41] LABS: Glucose - Point of Care 175 mg/dl (70-99)
[2023-07-27] MEDS: NOVOLOG FLEXPEN-LOW RESISTANCE 1 UNITS SC ×2 (12:56→18:05)
[2023-07-27] MEDS: FOLVITE 1 MG PO (15:10)
[2023-07-27] MEDS: PROTONIX 40 MG PO (15:11)
[2023-07-27] MEDS: WELLBUTRIN XL (24 hour extended release) 150 MG PO (15:11)
[2023-07-27] MEDS: WELLBUTRIN XL (24 hour extended release) 300 MG PO (15:11)
[2023-07-27 15:20] VITALS: BP 163/86
--- NOTE | 2023-07-27 16:41 | CM ---
met with patient at bedside.she lives with her in house with 1 isa,her bed and bath is on the second level,he amb i and is i with her adl.her pcp is dr daniel landaverde and she gets her meds from [facility] in [place].
patient with a hx of severe sarcoidosis is adm with cough,seen by pulm who feels she has a virus vs ILD flare.off abx,iv solumedrol,sating 954% on ra.will need home o2 eval prior to discharge home.she has never had a vn or been to ip rehab in
past.she declines a vn when dc home.cm to follow for any home o2 needs.Plan:home with no needs.
[2023-07-27 17:48] LABS: Glucose - Point of Care 171 mg/dl (70-99)
[2023-07-27] MEDS: LOVENOX 40 MG SC (18:06)
[2023-07-27 19:30] VITALS: BP 153/76
[2023-07-27 21:12] LABS: Glucose - Point of Care 186 mg/dl (70-99)
[2023-07-27 22:37] LABS: Angiotensin-1-converting Enzym 29 U/L (16-85)
[2023-07-27] MEDS: MELATONIN 3 MG PO (22:41)
[2023-07-27 23:30] VITALS: BP 155/81
[2023-07-28] MEDS: SOLU-MEDROL PF 40 MG IV ×3 (00:41→17:36)
[2023-07-28 03:30] VITALS: BP 138/80
[2023-07-28 08:11] LABS: Glucose - Point of Care 112 mg/dl (70-99)
[2023-07-28 08:14] VITALS: BP 150/75
[2023-07-28 08:24] LABS: Hematocrit 36.3 % (37.0-47.0); Mean Corp Hgb Conc. 33.1 g/dL (33.0-37.0); Mean Corpuscular Volume 90.8 fL (81.0-99.0); Mean Platelet Volume 10.2 fL (7.4-10.4); Platelet Count 473 10^3/uL (130-400); Red Cell Dist. Width 13.8 % (11.5-14.5); White Blood Cell Count 19.8 10^3/uL (4.8-10.8)
[2023-07-28] MEDS: MUCINEX 1200 MG PO ×2 (08:24→20:20)
[2023-07-28] MEDS: NOVOLOG FLEXPEN-LOW RESISTANCE SC ×3 (08:24→17:41)
--- NOTE | 2023-07-28 08:50 | W.PN.PUL3 ---
Today's Communication / Plan
-
Systemic steroids with wean as she clinically improves
Supportive care
Supplemental oxygen to maintain SpO2 >90-94%
Ambulatory pulse oximetry prior to discharge
Mucolytucs
Check sputum Cx if pt can produce decent sample
Start tessalon perles
Assessment
-
Assessment: 63-year-old female with a past medical history of sarcoidosis, migraine headaches, LILIAN and insomnia who presents with shortness of breath and hypoxia with ambulation. She feels that she also has a cold. Patient afebrile in the ER to
98.4 �F, tachycardic to 112, breathing at 18 breaths/min, saturating 94% on room air and BP 146/74. Labs showed leukocytosis to 17.2, Hb 11.2, sodium 133, serum chloride 94, glucose 198, procalcitonin <0.05. COVID antigen negative. Flu A/B swab
also negative. CXR shows severe reticulonodular interstitial disease throughout both lungs, upper lobe predominantly, with chronic opacities seen in the left upper lobe and lower lobe predominant GGO. Patient admitted to the hospitalist service,
started on antibiotics for possible CAP, also started on steroids with Decadron and now pulmonary consulted for additional recommendations.
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
Impression:
#Acute hypoxic respiratory failure due to acute pneumonitis likely due to viral CAP, inducing an ILD/sarcoidosis flare
#Pulmonary sarcoidosis with extensive mediastinal LN - stage IV on MTX and chronic prednisone (15mg daily)
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
#CAP (viral)
#Anemia
#Hyperglycemia - improved
#Pre-diabetes mellitus (HbA1C: 5.9 - 07/26/2023)
Plan:
- Continue systemic steroids and wean as tolerated --> on 07/25 I changed decadron 4mg IV q12hr to solumedrol 40mg IV q6hr --> yesterday this was weaned to 40mg IV q8hr; will wean this down tomorrow to 40mg IV q12hr
- ABx DC'd given negative procal and CXR unchanged from prior in Mar 2023 and suspected viral etiology to her current acute hypoxia
- Hold MTX for now
- Trend WBC
- Check sputum Cx if she can produce a decent sample
- Continue mucinex
- Start Tessalon Perles for coughing spells; if coughing spell is severe then administer codeine cough syrup
- Maintain SpO2 >90-94% with supplemental O2 as needed with ambulatory pulse oximetry prior to discharge
- SHARDA level 29 on 07/26/2023 (WNL) - this level is a poor indicator of active pulmonary sarcoidosis
- Incentive spirometer
- Replete electrolytes with K>4, Mg>2
- Maintain euglycemia with goal BG >100 and <180
- prn nebulized bronchodilators
- Obtain outpatient medical records from her colored leather setter, Dr. Elizondo from [facility]
- DVT ppx
Pulmonary service will continue to follow along. Patient spoke to her own colored leather setter, Dr. Elizondo, today and she decided she will follow-up with her and not need to see us at the [facility] office. I will remove our information from the patient's chart.
Total time spent today was 35 minutes for this encounter. Time includes reviewing laboratory test/imaging results, reviewing pertinent medical records, obtaining and reviewing medical history, performing an appropriate exam, ordering medications,
tests and procedures. Time also includes documentation of this encounter, coordinating patient care and communicating with other healthcare professionals. Total time does not include separately billed tests performed on this date of service.
Data:
CT Chest without Contrast 07-27-2023:
1. Moderate reticular interstitial thickening and bronchiectasis bilaterally, most pronounced within the upper lobes bilaterally. Calcified mediastinal lymph nodes. Findings are not significant change compared to prior CT, and are consistent with
chronic interstitial lung disease/sarcoidosis.
2. In addition, there is extensive superimposed groundglass opacity bilaterally and diffusely, which is new compared to prior CT dated 01/29/2023. Differential diagnosis includes superimposed infectious or inflammatory alveolitis, exacerbation of
interstitial lung disease, pulmonary hemorrhage, among others.
CXR 07-25-2023:
1. SEVERE SARCOIDOSIS with severe interstitial disease and scarring throughout both lungs.
2. Extensive calcified mediastinal lymphadenopathy.
3. Moderate to severe pleural thickening in the superior left hemithorax and mild pleural thickening in the superior right hemithorax which appears unchanged.
Subjective Data
-
Date of Service:
Date of Service: July 28, 2023
Chief Complaint: Pulmonary Follow Up
Subjective:
Patient seen today at bedside with multiple family members also present. Patient feels much better today. Able to walk around the [place] on supplemental oxygen with minimal shortness of breath, although she does become winded after walking about 100
feet. No shortness of breath at rest. She denies chest pain, headache, fevers or chills. She does have a cough with frequent spells and would like something for this.
Review of Systems
General: Other (Negative unless mentioned above)
Objective Data
Data Reviewed
Vital Signs / I&O / Oxygen:
Vital Signs
Temp Pulse Resp BP Pulse Ox
97.7 F 111 20 150/75 92
07/28/23 11:59 07/28/23 08:14 07/28/23 08:14 07/28/23 08:14 07/28/23 11:59
Intake and Output
07/27/23 07/28/23 07/29/23
06:59 06:59 06:59
Intake Total 960 / 960 810 / 810
Balance 960 / 960 810 / 810
SaO2 92
Nasal Cannula flow liters per 3
minute
Physical Exam
General: Respiratory Distress (negative) and Comfortable
Cardiovascular: Peripheral Edema (negative) and Other (Tachycardic)
Respiratory: Wheeze (negative), Crackles (Velcro rales heard upon inspiration in the mid-upper lung mariscal) and Non-Labored Respirations
GI: Soft, Non Distended, Non Tender and Normal Bowel Sounds
Neurology: AO x 3 and Tremors (negative)
Skin: Warm and Dry
Labs/Micro/Reports
Lab Data
07/28/23 07:29
07/28/23 07:29
Microbiology
07/25/23 16:47 Nasal Swab Influenza Types A & B (DIPIKA) - Final
Negative for Influenza A & B, NAAT
Negative results must be combined with clinical observations
and patient history.
Nucleic Acid Amplification test (NAAT)performed on the
[employer] platform.
[2023-07-28 09:17] LABS: Blood Urea Nitrogen 20 mg/dl (7-17); Calcium 9.6 mg/dl (8.4-10.2); Carbon Dioxide 29 mmol/L (22-30); Chloride 99 mmol/L (98-107); Estimated Creatinine Clearance 77 ml/min; Glucose 101 mg/dl (70-99); Potassium 4.6 mmol/L (3.5-5.1); Sodium 135 mmol/L (135-145); eGFR > 60.00
--- NOTE | 2023-07-28 11:36 | W.PN.HOSP.TC ---
Today's Communication/Plan
-
Wean steroids per pulmonary
Home O2 eval
Assessment / Plan
Assessment / Plan
# Acute hypoxic respiratory insufficiency - pt with severe sarcoidosis with recent change in regimen to steroids and MTX .
- Her symptoms started after having upper respiratory tract infection symptoms including runny nose, cough and scanty phlegm.
-Chest x-ray with impression of SEVERE SARCOIDOSIS with severe interstitial disease and scarring throughout both lungs.Extensive calcified mediastinal lymphadenopathy. Moderate to severe pleural thickening in the superior left hemithorax and mild
pleural thickening in the superior right hemithorax which appears unchanged.
- CT chest 07/25-
1. Moderate reticular interstitial thickening and bronchiectasis bilaterally, most pronounced within the upper lobes bilaterally. Calcified mediastinal lymph nodes. Findings are not significant change compared to prior CT, and are consistent with
chronic interstitial lung disease/sarcoidosis.
2. In addition, there is extensive superimposed groundglass opacity bilaterally and diffusely, which is new compared to prior CT dated 01/29/2023. Differential diagnosis includes superimposed infectious or inflammatory alveolitis, exacerbation of
interstitial lung disease, pulmonary hemorrhage, among others.
-COVID-negative and influenza
-Procalcitonin normal
-Suspect an acute bronchitis causing his symptoms. Doubt due to sarcoidosis flare but again she had recent changes in treatment regimen cannot can close rule out worsening sarcoidosis. appt pulmonary input.
-She is feeling better. CW steroid per pulm.
-hold abx ; appt ID input
-off of O2
-sepsis as evident by tachycardia and elevated wbc -follow
#hyponatremia mild
-now normal
-ctm
#hyperglycemia likely from steroids
-blood sugar elevated in ER
-HbA1c 5.9
#DVT prophylaxis
-Lovenox
#CODE status
-full code
Anticipated Discharge: 24 - 48 hours
Subjective/Interval History
-
Date of Service: July 28, 2023
Patient feels improved but still with exertional shortness of breath.
Dry cough today.
No fever or chills.
Objective Data
-
Labs:
Laboratory Results
07/28/23
07:29
WBC 19.8 H
Hgb 12.0
Hct 36.3 L
Plt Count 473 H
Sodium 135
Potassium 4.6
Chloride 99
Carbon Dioxide 29
BUN 20 H
Creatinine 0.5 L
Glucose 101 H
Calcium 9.6
Vital Signs:
Vital Signs
Temp Pulse Resp BP Pulse Ox
97.5 F 111 20 150/75 93
07/28/23 08:14 07/28/23 08:14 07/28/23 08:14 07/28/23 08:14 07/28/23 10:49
I&O
07/27/23 07/28/23 07/29/23
06:59 06:59 06:59
Intake Total 960 / 960 810 / 810
Balance 960 / 960 810 / 810
Review of Systems
-
Cardiac: Denies Chest Pain
Abdomen/GI: Denies Abdominal Pain, Nausea or Vomiting
Neuro: Denies Dizzy
Physical Exam
-
General: No Apparent Distress
HEENT: Moist Mucous Membranes
Respiratory: Crackles (BL Basilar ); Negative Wheezes
Cardiac: Regular Rhythm and S1/S2
GI: Soft
Neuro: AO x 3
Data Reviewed
-
Labs: Labs Reviewed by me
[2023-07-28 11:59] VITALS: BP 177/99
--- NOTE | 2023-07-28 14:04 | PN.CDI ---
CDI
- -
CDI:
Physician Documentation Request
Admit Date: 07/25/23 22:47
Dear Doctor Luiz,
07/27 progress note reports a diagnosis of mild hyponatremia (now normal)
H&P states 'hyponatremia likely pseudo due to hyperglycemia'
Please clarify regarding the hyponatremia:
Hyponatremia
Pseudohyponatremia
Other
Use of terms such as suspected, likely, concern for, or probable (associated with a specific diagnosis that is being evaluated, monitored, or treated as if it exists) are acceptable and can be coded in the inpatient setting, when documented at the
time of discharge.
Thank you,
Marisela Toribio RN, BSN
CDI Specialist
tiger text
Please use your independent medical judgment in providing your response.
[2023-07-28 14:17] LABS: Glucose - Point of Care 134 mg/dl (70-99)
--- NOTE | 2023-07-28 15:11 | W.PN.ID1 ---
Date of Service
Date of Service: July 28, 2023
Today's Communication
- follow up with pulmonary service, ID service will no longer actively follow this patient please recall for further questions
Assessment / Plan
Likely Viral Respiratory Infection vs ILD flare
Pulmonary Sarcoidosis - severe
on chronic prednisone 15 mg qday, Mtx weekly
off of imuran some time
Leukocytosis
- leukocytosis at least partially due to steroids
- appears to be improving on current steroids
- cough is nonproductive, if able to obtain a sample will follow up the culture however low clinical suspicion for bacterial pneumonia
- if fever then would send blood cultures x2
- would not recommend further antibiotics at this time
- last 3 months prednisone dose is not typically associated with opportunistic infections, if not improving could consider further workup however, already seems to be improving
- follow up with pulmonary service, ID service will no longer actively follow this patient please recall for further questions
Chief Complaint
-: Leukocytosis
Subjective / Review of Systems
afebrile
hypertensive in context of high dose steroids
leukocytosis (again on steroids)
cr stable
crp 42
cough remains dry
reporting improvement
Vital Signs / Physical Exam
Vital Signs
Vital Signs
Temp Pulse Resp BP Pulse Ox
97.7 F 110 18 177/99 92
07/28/23 11:59 07/28/23 11:59 07/28/23 11:59 07/28/23 11:59 07/28/23 11:59
Physical Exam
Constitutional: No Acute Distress
Cardiovascular: Regular Rate and S1/S2; Negative Murmur or Rub
Pulmonary: Clear, Symmetric and Other (no wheezing today, deep breaths prompt nonproductive cough); Negative Wheezes or Rales
Gastrointestinal: Soft, Non Tender, Non Distended and Normal Bowel Sounds
Skin: Warm and Dry; Negative Rash or Jaundice
Neurological: Awake and Alert
Objective Data
Lab Data
Lab Results
07/28/23 07:29
07/28/23 07:29
Estimated Creat Clear 77 ml/min 07/28/23 07:29
Total Bilirubin 0.7 mg/dl (0.2-1.3) 07/25/23 16:46
AST 30 U/L (14-36) 07/25/23 16:46
ALT 20 U/L (0-35) 07/25/23 16:46
Alkaline Phosphatase 91 U/L (38-126) 07/25/23 16:46
C-Reactive Protein 42.40 mg/L (0.0-10.00) H 07/28/23 07:29
Most recent labs reviewed.
Micro Results:
07/25/23 16:47 Influenza Types A & B (DIPIKA) - Final
Nasal Swab Negative for Influenza A & B, NAAT
Negative results must be combined with clinical observations
and patient history.
Nucleic Acid Amplification test (NAAT)performed on the
[employer] platform.
[2023-07-28] MEDS: WELLBUTRIN XL (24 hour extended release) 300 MG PO (15:31)
[2023-07-28] MEDS: FOLVITE 1 MG PO (15:32)
[2023-07-28] MEDS: PROTONIX 40 MG PO (15:32)
[2023-07-28] MEDS: WELLBUTRIN XL (24 hour extended release) 150 MG PO (15:32)
[2023-07-28 16:48] VITALS: BP 173/80
[2023-07-28] MEDS: LOVENOX 40 MG SC (17:38)
[2023-07-28 17:49] LABS: Glucose - Point of Care 122 mg/dl (70-99)
[2023-07-28 19:00] VITALS: BP 152/90
[2023-07-28] MEDS: TESSALON PERLES 200 MG PO (20:20)
[2023-07-28 21:25] LABS: Glucose - Point of Care 195 mg/dl (70-99)
[2023-07-28] MEDS: MELATONIN 3 MG PO (22:44)
[2023-07-28 23:57] VITALS: BP 122/85
[2023-07-29] MEDS: SOLU-MEDROL PF 40 MG IV ×2 (00:20→14:19)
[2023-07-29 03:42] VITALS: BP 134/70
[2023-07-29 07:24] LABS: Hematocrit 38.7 % (37.0-47.0); Hemoglobin 13.1 g/dL (12.0-16.0); Mean Corp Hgb Conc. 33.9 g/dL (33.0-37.0); Mean Corpuscular Hgb 30.3 pg (27.0-31.0); Mean Corpuscular Volume 89.4 fL (81.0-99.0); Mean Platelet Volume 10.1 fL (7.4-10.4); Platelet Count 555 10^3/uL (130-400); Red Blood Cell Count 4.33 10^6/uL (4.20-5.40); Red Cell Dist. Width 13.7 % (11.5-14.5)
[2023-07-29 07:25] VITALS: BP 141/76
[2023-07-29 07:30] LABS: Glucose - Point of Care 112 mg/dl (70-99)
[2023-07-29 07:47] LABS: Blood Urea Nitrogen 20 mg/dl (7-17); Calcium 10.2 mg/dl (8.4-10.2); Carbon Dioxide 28 mmol/L (22-30); Chloride 96 mmol/L (98-107); Estimated Creatinine Clearance 77 ml/min; Glucose 115 mg/dl (70-99); Potassium 4.9 mmol/L (3.5-5.1); Sodium 135 mmol/L (135-145); eGFR > 60.00
[2023-07-29] MEDS: NOVOLOG FLEXPEN-LOW RESISTANCE SC ×3 (08:10→16:33)
[2023-07-29] MEDS: TESSALON PERLES 200 MG PO ×2 (08:47→20:14)
[2023-07-29] MEDS: MUCINEX 1200 MG PO ×2 (08:47→20:14)
--- NOTE | 2023-07-29 09:33 | W.PN.PUL3 ---
Today's Communication / Plan
-
Systemic steroids with TRX to PO prednisone once she is ready for discharge
Supportive care
Supplemental oxygen to maintain SpO2 >90-94%
Ambulatory pulse oximetry prior to discharge
Mucolytics
Check sputum Cx if pt can produce decent sample
Sury villarreal
Assessment
-
Assessment: 63-year-old female with a past medical history of sarcoidosis, migraine headaches, LILIAN and insomnia who presents with shortness of breath and hypoxia with ambulation. She feels that she also has a cold. Patient afebrile in the ER to
98.4 �F, tachycardic to 112, breathing at 18 breaths/min, saturating 94% on room air and BP 146/74. Labs showed leukocytosis to 17.2, Hb 11.2, sodium 133, serum chloride 94, glucose 198, procalcitonin <0.05. COVID antigen negative. Flu A/B swab
also negative. CXR shows severe reticulonodular interstitial disease throughout both lungs, upper lobe predominantly, with chronic opacities seen in the left upper lobe and lower lobe predominant GGO. Patient admitted to the hospitalist service,
started on antibiotics for possible CAP, also started on steroids with Decadron and now pulmonary consulted for additional recommendations.
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
Impression:
#Acute hypoxic respiratory failure due to acute pneumonitis likely due to viral CAP, inducing an ILD/sarcoidosis flare
#Pulmonary sarcoidosis with extensive mediastinal LN - stage IV on MTX and chronic prednisone (15mg daily)
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
#CAP (viral)
#Anemia
#Hyperglycemia - improved
#Pre-diabetes mellitus (HbA1C: 5.9 - 07/26/2023)
Plan:
- Continue systemic steroids and wean as tolerated --> on 07/25 I changed decadron 4mg IV q12hr to solumedrol 40mg IV q6hr --> yesterday this was weaned to 40mg IV q8hr; weaned this down on 07/28 to 40mg IV q12hr --> continue this while she remains
inpatient.
- When patient ready for discharge, please discharge home on extended prednisone taper: 50mg PO daily x 4 days, then 40mg x 4 days, 30 mg x4 days, 20mg x 4 days and then resume her 15mg daily after that
- ABx DC'd given negative procal and CXR unchanged from prior in Mar 2023 and suspected viral etiology to her current acute hypoxia
- Hold MTX for now
- Trend WBC
- Check sputum Cx if she can produce a decent sample
- Continue mucinex
- Started Tessalon Perles for coughing spells; if coughing spell is severe then administer codeine cough syrup
- Maintain SpO2 >90-94% with supplemental O2 as needed with ambulatory pulse oximetry prior to discharge--> may need to walk up steps to qualify; would recommend this anyway as pt has steps at her home
- SHARDA level 29 on 07/26/2023 (WNL) - this level is a poor indicator of active pulmonary sarcoidosis
- Incentive spirometer
- Replete electrolytes with K>4, Mg>2
- Maintain euglycemia with goal BG >100 and <180
- prn nebulized bronchodilators
- Obtain outpatient medical records from her needle molder, Dr. Elizondo from [facility]
- DVT ppx
Pulmonary service will continue to follow along. Patient spoke to her own needle molder, Dr. Elizondo, and she decided she will follow-up with her and not need to see us at the [facility] office. I removed our information from the patient's chart.
(patient seen and evaluated on 07/29/2023).
Total time spent today was 35 minutes for this encounter. Time includes reviewing laboratory test/imaging results, reviewing pertinent medical records, obtaining and reviewing medical history, performing an appropriate exam, ordering medications,
tests and procedures. Time also includes documentation of this encounter, coordinating patient care and communicating with other healthcare professionals. Total time does not include separately billed tests performed on this date of service.
Data:
CT Chest without Contrast 07-27-2023:
1. Moderate reticular interstitial thickening and bronchiectasis bilaterally, most pronounced within the upper lobes bilaterally. Calcified mediastinal lymph nodes. Findings are not significant change compared to prior CT, and are consistent with
chronic interstitial lung disease/sarcoidosis.
2. In addition, there is extensive superimposed groundglass opacity bilaterally and diffusely, which is new compared to prior CT dated 01/29/2023. Differential diagnosis includes superimposed infectious or inflammatory alveolitis, exacerbation of
interstitial lung disease, pulmonary hemorrhage, among others.
CXR 07-25-2023:
1. SEVERE SARCOIDOSIS with severe interstitial disease and scarring throughout both lungs.
2. Extensive calcified mediastinal lymphadenopathy.
3. Moderate to severe pleural thickening in the superior left hemithorax and mild pleural thickening in the superior right hemithorax which appears unchanged.
Subjective Data
-
Date of Service:
Date of Service: July 29, 2023
Chief Complaint: Pulmonary Follow Up
Subjective:
Seen today. On room air at rest and breathing well. Walked around [place] with RN but became tachycardic to 130s and became SOB after several minutes. SHe also feels SOB after brushing teeth today. She denies CP, ROMERO, abd pain, N/V/f/c.
Review of Systems
General: Other (neg unless mentioned above)
Objective Data
Data Reviewed
Vital Signs / I&O / Oxygen:
Vital Signs
Temp Pulse Resp BP Pulse Ox
98.0 F 114 18 156/94 96
07/29/23 11:16 07/29/23 11:16 07/29/23 11:16 07/29/23 11:16 07/29/23 11:16
Intake and Output
07/28/23 07/29/23 07/30/23
06:59 06:59 06:59
Intake Total 810 / 810 1140 / 1140
Balance 810 / 810 1140 / 1140
SaO2 96
Nasal Cannula flow liters per 3
minute
Physical Exam
General: Respiratory Distress (negative) and Comfortable
HEENT: Normocephalic, Anicteric and Moist Mucous Membranes
Cardiovascular: S1-S2, Peripheral Edema (negative) and Other (normal rate)
Respiratory: Wheeze (negative), Crackles (negative), Rhonchi (negative) and Non-Labored Respirations
GI: Soft, Non Distended, Non Tender and Normal Bowel Sounds
Neurology: AO x 3 and Tremors (negative)
Skin: Warm and Dry
Labs/Micro/Reports
Lab Data
07/29/23 06:51
07/29/23 06:51
[2023-07-29 11:16] VITALS: BP 156/94
[2023-07-29] MEDS: TYLENOL 650 MG PO (11:33)
[2023-07-29 11:55] LABS: Glucose - Point of Care 113 mg/dl (70-99)
--- NOTE | 2023-07-29 13:24 | W.PN.HOSP.TC ---
Addendum entered and electronically signed by Fern Anaya MD 07/29/23 14:08:
documentation complete
Original Note:
Today's Communication/Plan
-
apprec pulm
no exercise tolerance
cont steroids
Assessment / Plan
Assessment / Plan
pt is a 63 year old female
sepsis (by criteria tachycardia and elevated wbc) Acute hypoxic respiratory insufficiency - pt with severe sarcoidosis with recent change in regimen to steroids and MTX-- unclear if exacerbated by allergies- Her symptoms started after having upper
respiratory tract infection symptoms including runny nose, cough and scanty phlegm--COVID-negative and influenza--Procalcitonin normal--Doubt due to sarcoidosis flare but again she had recent changes in treatment regimen cannot can close rule out
worsening sarcoidosis--apprec pulm
hyponatremia--now normal--resolved
hyperglycemia likely from steroids--follow
DVT prophylaxis--Lovenox
CODE status--full code
Anticipated Discharge: 24 - 48 hours
Subjective/Interval History
-
Date of Service: July 29, 2023
pt feels still SOB servando with moving
Objective Data
-
Labs:
Laboratory Results
07/29/23
06:51
WBC 20.0 H
Hgb 13.1
Hct 38.7
Plt Count 555 H
Sodium 135
Potassium 4.9
Chloride 96 L
Carbon Dioxide 28
BUN 20 H
Creatinine 0.4 L
Glucose 115 H
Calcium 10.2
Vital Signs:
max temp for 24 hours
07/29/23
11:16
Temp 98.0 F
Vital Signs
Temp Pulse Resp BP Pulse Ox
98.0 F 114 18 156/94 96
07/29/23 11:16 07/29/23 11:16 07/29/23 11:16 07/29/23 11:16 07/29/23 11:16
I&O
07/28/23 07/29/23 07/30/23
06:59 06:59 06:59
Intake Total 810 / 810 1140 / 1140
Balance 810 / 810 1140 / 1140
Review of Systems
-
All other systems: Reviewed and negative
Respiratory: Reports Trouble Breathing (with exertion)
Physical Exam
-
General: Well Developed, Well Nourished and No Apparent Distress
HEENT: Normocephalic and Atraumatic; Negative Oxygen
Respiratory: Decreased Breath Sounds (all lung mariscal)
Cardiac: Regular Rhythm, S1/S2 and Tachycardic; Negative Murmur
GI: Soft, Nontender, Nondistended and Normal Bowel Sounds
Musculoskeletal: No Clubbing, No Cyanosis and No Edema
Skin: Warm
Neuro: Awake
--- NOTE | 2023-07-29 13:58 | PN.CDI ---
Addendum entered and electronically signed by Fern Anaya MD 07/29/23 14:09:
documentation complete
Original Note:
CDI
- -
CDI:
Physician Documentation Request
Admit Date: 07/25/23 22:47
Dear Doctor Héctor,
07/28 progress note reports a diagnosis of hyponatremia (now normal)
H&P states 'hyponatremia likely pseudo due to hyperglycemia'
Please clarify regarding the hyponatremia:
Hyponatremia
Pseudohyponatremia
Other
Use of terms such as suspected, likely, concern for, or probable (associated with a specific diagnosis that is being evaluated, monitored, or treated as if it exists) are acceptable and can be coded in the inpatient setting, when documented at the
time of discharge.
Thank you,
Marisela Toribio RN, BSN
CDI Specialist
tiger text
Please use your independent medical judgment in providing your response.
[2023-07-29] MEDS: WELLBUTRIN XL (24 hour extended release) 150 MG PO (14:18)
[2023-07-29] MEDS: PROTONIX 40 MG PO (14:18)
[2023-07-29] MEDS: WELLBUTRIN XL (24 hour extended release) 300 MG PO (14:18)
[2023-07-29] MEDS: FOLVITE 1 MG PO (14:18)
[2023-07-29 15:30] VITALS: BP 144/78
[2023-07-29 16:13] LABS: Glucose - Point of Care 97 mg/dl (70-99)
[2023-07-29] MEDS: LOVENOX 40 MG SC (17:03)
[2023-07-29 19:56] VITALS: BP 152/118
--- NOTE | 2023-07-29 20:11 | PTCARENOTE ---
Pt ambulated in the hallway on RA. Pt walked 250ft had to take multiple breaks, very dyspneic, tachycardic HR as high as 130s. POX remained 91-95% on RA. Pulm made aware, plan of care ongoing
[2023-07-29] MEDS: MELATONIN 3 MG PO (23:10)
[2023-07-29 23:58] VITALS: BP 157/87
[2023-07-30] MEDS: SOLU-MEDROL PF 40 MG IV ×2 (01:17→14:17)
[2023-07-30 03:39] VITALS: BP 151/80
[2023-07-30 04:36] LABS: Glucose - Point of Care 116 mg/dl (70-99)
[2023-07-30 06:22] LABS: Hematocrit 35.7 % (37.0-47.0); Hemoglobin 11.9 g/dL (12.0-16.0); Mean Corp Hgb Conc. 33.3 g/dL (33.0-37.0); Mean Corpuscular Hgb 29.6 pg (27.0-31.0); Mean Corpuscular Volume 88.8 fL (81.0-99.0); Mean Platelet Volume 9.9 fL (7.4-10.4); Platelet Count 508 10^3/uL (130-400); Red Blood Cell Count 4.02 10^6/uL (4.20-5.40); Red Cell Dist. Width 13.8 % (11.5-14.5); White Blood Cell Count 15.3 10^3/uL (4.8-10.8)
[2023-07-30 06:45] LABS: Blood Urea Nitrogen 21 mg/dl (7-17); Calcium 9.2 mg/dl (8.4-10.2); Carbon Dioxide 30 mmol/L (22-30); Chloride 98 mmol/L (98-107); Estimated Creatinine Clearance 77 ml/min; Glucose 100 mg/dl (70-99); Magnesium 2.1 mg/dl (1.6-2.3); Potassium 4.9 mmol/L (3.5-5.1); Sodium 133 mmol/L (135-145); eGFR > 60.00
[2023-07-30 08:05] LABS: Glucose - Point of Care 145 mg/dl (70-99)
[2023-07-30] MEDS: NOVOLOG FLEXPEN-LOW RESISTANCE SC ×3 (08:06→17:35)
[2023-07-30] MEDS: TESSALON PERLES 200 MG PO ×2 (08:08→20:17)
[2023-07-30] MEDS: MUCINEX 1200 MG PO ×2 (08:08→20:17)
[2023-07-30 08:18] VITALS: BP 132/82
[2023-07-30] MEDS: MIRALAX 17 GRAMS PO (11:19)
[2023-07-30] MEDS: SENOKOT-S 1 TABLET PO (11:20)
[2023-07-30 12:02] VITALS: BP 165/99
[2023-07-30 12:43] LABS: Glucose - Point of Care 107 mg/dl (70-99)
--- NOTE | 2023-07-30 13:36 | W.PN.HOSP.TC ---
Today's Communication/Plan
-
cont IV steroids
Assessment / Plan
Assessment / Plan
pt is a 63 year old female
sepsis (by criteria tachycardia and elevated wbc) and Acute hypoxic respiratory insufficiency - pt with severe sarcoidosis with recent change in regimen to steroids and MTX-- unclear if exacerbated by allergies- Her symptoms started after having
upper respiratory tract infection symptoms including runny nose, cough and scanty phlegm--COVID-negative and influenza--Procalcitonin normal--suspect progressive sarcoidosis with flare--apprec pulm/ID
hyponatremia--due to lung process--follow
hyperglycemia likely from steroids--follow
DVT prophylaxis--Lovenox
CODE status--full code
Anticipated Discharge: > 48 hours
Subjective/Interval History
-
Date of Service: July 30, 2023
pt went for a walk x 2 and HR bumped to 140s with drop in pulse ox
Objective Data
-
Labs:
Laboratory Results
07/30/23
05:02
WBC 15.3 H
Hgb 11.9 L
Hct 35.7 L
Plt Count 508 H
Sodium 133 L
Potassium 4.9
Chloride 98
Carbon Dioxide 30
BUN 21 H
Creatinine 0.5 L
Glucose 100 H
Calcium 9.2
Vital Signs:
max temp for 24 hours
07/30/23
08:18
Temp 98.9 F
Vital Signs
Temp Pulse Resp BP Pulse Ox
98.2 F 108 18 165/99 97
07/30/23 12:02 07/30/23 12:02 07/30/23 12:02 07/30/23 12:02 07/30/23 12:02
I&O
07/29/23 07/30/23 07/31/23
06:59 06:59 06:59
Intake Total 1140 / 1140 720 / 720
Balance 1140 / 1140 720 / 720
Review of Systems
-
All other systems: Reviewed and negative
Respiratory: Reports Trouble Breathing
Cardiac: Reports Other (increased HR)
Physical Exam
-
General: Well Developed, Well Nourished and No Apparent Distress
HEENT: Normocephalic and Atraumatic; Negative Oxygen
Respiratory: Crackles (coarse crackles throughout)
Cardiac: Regular Rhythm, S1/S2 and Tachycardic
GI: Soft, Nontender, Nondistended and Normal Bowel Sounds
Musculoskeletal: No Clubbing, No Cyanosis and No Edema
Neuro: Awake and Alert
Psych: Calm
[2023-07-30] MEDS: WELLBUTRIN XL (24 hour extended release) 150 MG PO (14:17)
[2023-07-30] MEDS: PROTONIX 40 MG PO (14:17)
[2023-07-30] MEDS: FOLVITE 1 MG PO (14:18)
[2023-07-30] MEDS: WELLBUTRIN XL (24 hour extended release) 300 MG PO (14:18)
--- NOTE | 2023-07-30 15:00 | PTCARENOTE ---
Walked pt in hallway,( about 200ft) pt continues with dyspnea requiring frequent rests due to dizziness and SOB. Pt pox 91-94% on RA but did drop to 89% at end of walk HR 120to as high as 140s) pt required oxygen at 2L to improve SOB along with HR
after about 10-15 minutes pt felt better, HR now 100-110s, remains on oxygen for comfort, call valenzuela within reach, plan of care ongoing.
[2023-07-30 16:24] VITALS: BP 152/95
--- NOTE | 2023-07-30 16:49 | W.PN.PUL3 ---
Today's Communication / Plan
-
CS
6MWT
Assessment
-
Assessment: 63-year-old female with a past medical history of sarcoidosis, migraine headaches, LILIAN and insomnia who presents with shortness of breath and hypoxia with ambulation. She feels that she also has a cold. Patient afebrile in the ER to
98.4 �F, tachycardic to 112, breathing at 18 breaths/min, saturating 94% on room air and BP 146/74. Labs showed leukocytosis to 17.2, Hb 11.2, sodium 133, serum chloride 94, glucose 198, procalcitonin <0.05. COVID antigen negative. Flu A/B swab
also negative. CXR shows severe reticulonodular interstitial disease throughout both lungs, upper lobe predominantly, with chronic opacities seen in the left upper lobe and lower lobe predominant GGO. Patient admitted to the hospitalist service,
started on antibiotics for possible CAP, also started on steroids with Decadron and now pulmonary consulted for additional recommendations.
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
Impression:
#Acute hypoxic respiratory failure due to acute pneumonitis likely due to viral CAP, inducing an ILD/sarcoidosis flare
#Pulmonary sarcoidosis with extensive mediastinal LN - stage IV on MTX and chronic prednisone (15mg daily)
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
#CAP (viral)
#Anemia
#Hyperglycemia - improved
#Pre-diabetes mellitus (HbA1C: 5.9 - 07/26/2023)
Plan:
- Continue systemic steroids and wean as tolerated --> on 07/25 changed decadron 4mg IV q12hr to solumedrol 40mg IV q6hr --> then weaned to 40mg IV q8hr; weaned this down on 07/28 to 40mg IV q12hr --> continue this while she remains inpatient.
- When patient ready for discharge, please discharge home on extended prednisone taper: 50mg PO daily x 4 days, then 40mg x 4 days, 30 mg x4 days, 20mg x 4 days and then resume her 15mg daily after that
- ABx DC'd given negative procal and CXR unchanged from prior in Mar 2023 and suspected viral etiology to her current acute hypoxia
- Hold MTX for now
- Trend WBC
- Check sputum Cx if she can produce a decent sample: not yet produced, cough is dry
- Continue mucinex
- Started Tessalon Perles for coughing spells; if coughing spell is severe then administer codeine cough syrup
- Maintain SpO2 >90-94% with supplemental O2 as needed with ambulatory pulse oximetry prior to discharge
Will check 6MWT by RT tomorrow and follow results
Walked by RN earlier today, walked the whole halway on RA, POx dropped to 89% and HR increased to 140s
- SHARDA level 29 on 07/26/2023 (WNL) - this level is a poor indicator of active pulmonary sarcoidosis
- Incentive spirometry
- Replete electrolytes with K>4, Mg>2
- Maintain euglycemia with goal BG >100 and <180
- prn nebulized bronchodilators
- Obtain outpatient medical records from her r&d engineer, Dr. Elizondo from [facility]
- DVT ppx
Pulmonary service will continue to follow along. Patient spoke to her own r&d engineer, Dr. Elizondo, and she decided she will follow-up with her and not need to see us at the [facility] office
D/w and Mr Enriquez and their daughter (RN)
Data:
CT Chest without Contrast 07-27-2023:
1. Moderate reticular interstitial thickening and bronchiectasis bilaterally, most pronounced within the upper lobes bilaterally. Calcified mediastinal lymph nodes. Findings are not significant change compared to prior CT, and are consistent with
chronic interstitial lung disease/sarcoidosis.
2. In addition, there is extensive superimposed groundglass opacity bilaterally and diffusely, which is new compared to prior CT dated 01/29/2023. Differential diagnosis includes superimposed infectious or inflammatory alveolitis, exacerbation of
interstitial lung disease, pulmonary hemorrhage, among others.
CXR 07-25-2023:
1. SEVERE SARCOIDOSIS with severe interstitial disease and scarring throughout both lungs.
2. Extensive calcified mediastinal lymphadenopathy.
3. Moderate to severe pleural thickening in the superior left hemithorax and mild pleural thickening in the superior right hemithorax which appears unchanged.
Subjective Data
-
Date of Service:
Date of Service: July 30, 2023
Chief Complaint: Pulmonary Follow Up
Subjective:
Walked by RN earlier today, walked the whole hallway, pulse oximetry on room air dropped to 89% and heart rate went up to 140s
Cough remains dry
Se presents no dyspnea at rest
Very apprehensive in regards to potential need for oxygen at home, she was not on oxygen in the past
and daughter visiting at bedside
Review of Systems
General: Fever (n), Sweats (n), Chills and Satisfactory Appetite
HEENT: Epistaxis (n) and Dysphagia (n)
Cardiopulmonary: Dyspnea (n at rest), Dyspnea on Exertion, Cough (dry) and Chest Pain (n)
GI: Abdominal Pain (n), Nausea (n) and Vomiting
Neuro: Weakness
Objective Data
Data Reviewed
Vital Signs / I&O / Oxygen:
Vital Signs
Temp Pulse Resp BP Pulse Ox
97.8 F 108 18 152/95 96
07/30/23 16:24 07/30/23 16:24 07/30/23 16:24 07/30/23 16:24 07/30/23 16:24
Intake and Output
07/29/23 07/30/23 07/31/23
06:59 06:59 06:59
Intake Total 1140 / 1140 720 / 720
Balance 1140 / 1140 720 / 720
SaO2 96
Nasal Cannula flow liters per 2
minute
Physical Exam
General: Respiratory Distress (negative) and Comfortable
HEENT: Normocephalic, Anicteric and Moist Mucous Membranes
Cardiovascular: S1-S2, Regular Rhythm, Murmur (n), Peripheral Edema (negative), Calf Tenderness (n) and Other (normal rate)
Respiratory: Wheeze (negative), Crackles (negative), Rhonchi (negative), Non-Labored Respirations, Accessory Resp Muscle Use (n) and Stridor (n)
GI: Soft, Non Distended, Non Tender and Normal Bowel Sounds
Neurology: Awake, AO x 3 and No Motor Deficits
Skin: Warm and Dry
Labs/Micro/Reports
Lab Data
07/30/23 05:02
07/30/23 05:02
[2023-07-30 17:35] LABS: Glucose - Point of Care 103 mg/dl (70-99)
[2023-07-30] MEDS: LOVENOX 40 MG SC (17:35)
[2023-07-30 19:53] VITALS: BP 156/81
[2023-07-30 21:39] LABS: Glucose - Point of Care 162 mg/dl (70-99)
[2023-07-30] MEDS: MELATONIN 3 MG PO (23:07)
[2023-07-30 23:43] VITALS: BP 153/85
[2023-07-31] MEDS: SOLU-MEDROL PF 40 MG IV ×2 (01:57→14:17)
[2023-07-31 03:53] VITALS: BP 137/75
[2023-07-31 07:02] LABS: Hematocrit 37.2 % (37.0-47.0); Hemoglobin 12.1 g/dL (12.0-16.0); Mean Corp Hgb Conc. 32.5 g/dL (33.0-37.0); Mean Corpuscular Hgb 29.7 pg (27.0-31.0); Mean Corpuscular Volume 91.4 fL (81.0-99.0); Mean Platelet Volume 10.2 fL (7.4-10.4); Platelet Count 511 10^3/uL (130-400); Red Blood Cell Count 4.07 10^6/uL (4.20-5.40); Red Cell Dist. Width 13.8 % (11.5-14.5); White Blood Cell Count 15.1 10^3/uL (4.8-10.8)
[2023-07-31 07:37] LABS: Glucose - Point of Care 123 mg/dl (70-99)
[2023-07-31 07:42] LABS: ALT (SGPT) 29 U/L (0-35); AST (SGOT) 26 U/L (14-36); Albumin 3.6 g/dl (3.5-5.0); Alkaline Phosphatase 74 U/L (38-126); Blood Urea Nitrogen 26 mg/dl (7-17); Calcium 8.9 mg/dl (8.4-10.2); Carbon Dioxide 31 mmol/L (22-30); Chloride 97 mmol/L (98-107); Estimated Creatinine Clearance 77 ml/min; Glucose 121 mg/dl (70-99); Magnesium 2.1 mg/dl (1.6-2.3); Potassium 4.9 mmol/L (3.5-5.1); Sodium 132 mmol/L (135-145); Total Bilirubin 0.3 mg/dl (0.2-1.3); Total Protein 6.6 g/dl (6.3-8.2); eGFR > 60.00
[2023-07-31 07:45] VITALS: BP 125/68
[2023-07-31] MEDS: NOVOLOG FLEXPEN-LOW RESISTANCE SC ×3 (08:07→17:06)
[2023-07-31] MEDS: TESSALON PERLES 200 MG PO ×2 (08:07→20:20)
[2023-07-31] MEDS: MUCINEX 1200 MG PO (08:08)
[2023-07-31] MEDS: MIRALAX 17 GRAMS PO (10:36)
[2023-07-31] MEDS: SENOKOT-S 1 TABLET PO (10:36)
[2023-07-31 11:15] VITALS: BP 133/84
[2023-07-31 12:39] LABS: Glucose - Point of Care 87 mg/dl (70-99)
--- NOTE | 2023-07-31 13:04 | W.PN.HOSP.TC ---
Today's Communication/Plan
-
hopeful d/c tomorrow
Assessment / Plan
Assessment / Plan
pt is a 63 year old female
sepsis (by criteria tachycardia and elevated wbc) and Acute hypoxic respiratory insufficiency - pt with severe sarcoidosis with recent change in regimen to steroids and MTX-- unclear if exacerbated by allergies- Her symptoms started after having
upper respiratory tract infection symptoms including runny nose, cough and scanty phlegm--COVID-negative and influenza--Procalcitonin normal--suspect progressive sarcoidosis with flare--apprec pulm/ID--will need long steroid taper at d/c
hyponatremia--due to lung process--follow
hyperglycemia likely from steroids--follow
DVT prophylaxis--Lovenox
CODE status--full code
Anticipated Discharge: Within 24 hours
Subjective/Interval History
-
Date of Service: July 31, 2023
pt did better but not yet ready to go home
Objective Data
-
Labs:
Laboratory Results
07/31/23
05:28
WBC 15.1 H
Hgb 12.1
Hct 37.2
Plt Count 511 H
Sodium 132 L
Potassium 4.9
Chloride 97 L
Carbon Dioxide 31 H
BUN 26 H
Creatinine 0.5 L
Glucose 121 H
Calcium 8.9
Total Bilirubin 0.3
AST 26
ALT 29
Alkaline Phosphatase 74
Vital Signs:
max temp for 24 hours
07/30/23
23:43
Temp 98.0 F
Vital Signs
Temp Pulse Resp BP Pulse Ox
98.1 F 111 18 133/84 96
07/31/23 11:15 07/31/23 11:15 07/31/23 11:15 07/31/23 11:15 07/31/23 11:15
I&O
07/30/23 07/31/23 08/01/23
06:59 06:59 06:59
Intake Total 720 / 720 1919
Balance 720 / 720 1919
Review of Systems
-
All other systems: Reviewed and negative
Physical Exam
-
General: Well Developed, Well Nourished and No Apparent Distress
HEENT: Normocephalic and Atraumatic
Respiratory: Clear to Auscultation; Negative Wheezes, Rales, Rhonchi or Crackles
Cardiac: Regular Rhythm and S1/S2; Negative Murmur
GI: Soft, Nontender, Nondistended and Normal Bowel Sounds
Musculoskeletal: No Clubbing, No Cyanosis and No Edema
Neuro: Awake
[2023-07-31] MEDS: FOLVITE 1 MG PO (14:17)
[2023-07-31] MEDS: WELLBUTRIN XL (24 hour extended release) 300 MG PO (14:18)
[2023-07-31] MEDS: PROTONIX 40 MG PO (14:18)
[2023-07-31] MEDS: WELLBUTRIN XL (24 hour extended release) 150 MG PO (14:18)
--- NOTE | 2023-07-31 15:00 | PTCARENOTE ---
Pt ambulated in hallway, wanted to try stairs since she has a lot of stairs at home. Pt taken to PT gym, at rest 97% . Pt did a over a flight of stairs, taking a small break in between ( 4 steps up and down 3 times) Pulse ox remained 93-94% ( 91%
for short period) on RA HR high 120s. At the end of completing stairs pt recovered sitting in a chair. Pt feeling dizzy, winded, asking for oxygen to recover, 93% on RA. oxygen applied at 2L pox 97%. Pt was able to recover after 5 minutes on oxygen
at rest. Pt wheeled back to the room on oxygen. Remained on oxygen for about an hour for comfort. Dizziness has improved, HR 110s, Pox 97-98% on 2L. Call valenzuela within reach, plan of care ongoing.
[2023-07-31 15:35] VITALS: BP 142/72
[2023-07-31 16:49] LABS: Glucose - Point of Care 142 mg/dl (70-99)
--- NOTE | 2023-07-31 16:53 | W.PN.PUL3 ---
Today's Communication / Plan
-
CS taper
Dispo
Reconsult prn
Assessment
-
Assessment: 63-year-old female with a past medical history of sarcoidosis, migraine headaches, LILIAN and insomnia who presents with shortness of breath and hypoxia with ambulation. She feels that she also has a cold. Patient afebrile in the ER to
98.4 �F, tachycardic to 112, breathing at 18 breaths/min, saturating 94% on room air and BP 146/74. Labs showed leukocytosis to 17.2, Hb 11.2, sodium 133, serum chloride 94, glucose 198, procalcitonin <0.05. COVID antigen negative. Flu A/B swab
also negative. CXR shows severe reticulonodular interstitial disease throughout both lungs, upper lobe predominantly, with chronic opacities seen in the left upper lobe and lower lobe predominant GGO. Patient admitted to the hospitalist service,
started on antibiotics for possible CAP, also started on steroids with Decadron and now pulmonary consulted for additional recommendations.
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
Impression:
#Acute hypoxic respiratory failure due to acute pneumonitis likely due to viral CAP, inducing an ILD/sarcoidosis flare
#Pulmonary sarcoidosis with extensive mediastinal LN - stage IV on MTX and chronic prednisone (15mg daily)
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
#CAP (viral)
#Anemia
#Hyperglycemia - improved
#Pre-diabetes mellitus (HbA1C: 5.9 - 07/26/2023)
Plan:
- Continue systemic steroids and wean as tolerated --> on 07/25 changed decadron 4mg IV q12hr to solumedrol 40mg IV q6hr --> then weaned to 40mg IV q8hr; weaned this down on 07/28 to 40mg IV q12hr --> continue this while she remains inpatient.
- When patient ready for discharge, please discharge home on extended prednisone taper: 50mg PO daily x 4 days, then 40mg x 4 days, 30 mg x4 days, 20mg x 4 days and then resume her 15mg daily after that
- ABx DC'd given negative procal and CXR unchanged from prior in Mar 2023 and suspected viral etiology to her current acute hypoxia
- Hold MTX for now
- Trend WBC
- Cough is dry and about resolved now
- Continue mucinex
- Started Tessalon Perles for coughing spells; if coughing spell is severe then administer codeine cough syrup
- Maintain SpO2 >90-94% with supplemental O2 as needed with ambulatory pulse oximetry prior to discharge
6MWT by RT showed no desaturation: 99% on RA at rest, down to 94% on exertion, walked for 940 ft (report not scanned at EMR by RT)
- SHARDA level 29 on 07/26/2023 (WNL) - this level is a poor indicator of active pulmonary sarcoidosis
- Incentive spirometry
- Replete electrolytes with K>4, Mg>2
- Maintain euglycemia with goal BG >100 and <180
- prn nebulized bronchodilators
- Obtain outpatient medical records from her basting puller, Dr. Elizondo from [facility]
- DVT ppx
Pulmonary service will continue to follow along. Patient spoke to her own basting puller, Dr. Elizondo, and she decided she will follow-up with her and not need to see us at the [facility] office
D/w and Mr Enriquez and their daughter (RN) 07-29
D/w patient and son 07-29
No objection to d/c home tomorrow with rec prednisone taper as stated above
Reconsult prn
Data:
CT Chest without Contrast 07-27-2023:
1. Moderate reticular interstitial thickening and bronchiectasis bilaterally, most pronounced within the upper lobes bilaterally. Calcified mediastinal lymph nodes. Findings are not significant change compared to prior CT, and are consistent with
chronic interstitial lung disease/sarcoidosis.
2. In addition, there is extensive superimposed groundglass opacity bilaterally and diffusely, which is new compared to prior CT dated 01/29/2023. Differential diagnosis includes superimposed infectious or inflammatory alveolitis, exacerbation of
interstitial lung disease, pulmonary hemorrhage, among others.
CXR 07-25-2023:
1. SEVERE SARCOIDOSIS with severe interstitial disease and scarring throughout both lungs.
2. Extensive calcified mediastinal lymphadenopathy.
3. Moderate to severe pleural thickening in the superior left hemithorax and mild pleural thickening in the superior right hemithorax which appears unchanged.
Subjective Data
-
Date of Service:
Date of Service: July 31, 2023
Chief Complaint: Pulmonary Follow Up
Subjective:
No major events overnight
Reports improvement in dyspnea and cough
[place]OTT improving. Did not desaturate on walking test today
Review of Systems
General: Fever (n), Sweats (n), Chills (n) and Satisfactory Appetite
HEENT: Epistaxis (n) and Dysphagia (n)
Cardiopulmonary: Dyspnea on Exertion, Cough (trace), Sputum Production (n), Wheezing (n), Chest Pain (n) and Hemoptysis (n)
GI: Abdominal Pain (n), Nausea (n) and Vomiting (n)
Neuro: Weakness (n)
Genitourinary: Hematuria (n)
Objective Data
Data Reviewed
Vital Signs / I&O / Oxygen:
Vital Signs
Temp Pulse Resp BP Pulse Ox
98 F 110 18 142/72 96
07/31/23 15:35 07/31/23 15:35 07/31/23 15:35 07/31/23 15:35 07/31/23 15:35
Intake and Output
07/30/23 07/31/23 08/01/23
06:59 06:59 06:59
Intake Total 720 / 720 1919
Balance 720 / 720 1919
SaO2 96
Nasal Cannula flow liters per 2
minute
Physical Exam
General: Respiratory Distress (negative) and Comfortable
HEENT: Normocephalic, Anicteric and Moist Mucous Membranes
Cardiovascular: S1-S2, Regular Rhythm, Murmur (n), Peripheral Edema (negative), Calf Tenderness (n) and Other (normal rate)
Respiratory: Wheeze (negative), Crackles (negative), Rhonchi (negative), Non-Labored Respirations, Accessory Resp Muscle Use (n) and Stridor (n)
GI: Soft, Non Distended, Non Tender and Normal Bowel Sounds
Neurology: Awake, AO x 3 and No Motor Deficits
Skin: Warm and Dry
Labs/Micro/Reports
Lab Data
07/31/23 05:28
07/31/23 05:28
[2023-07-31] MEDS: LOVENOX 40 MG SC (17:27)
[2023-07-31 19:17] VITALS: BP 139/97
[2023-07-31 21:26] LABS: Glucose - Point of Care 105 mg/dl (70-99)
[2023-07-31] MEDS: MELATONIN 3 MG PO (23:05)
[2023-07-31 23:21] VITALS: BP 150/85
[2023-08-01] MEDS: SOLU-MEDROL PF 40 MG IV ×2 (01:35→14:13)
[2023-08-01 03:17] VITALS: BP 138/81
[2023-08-01 06:00] VITALS: BMI 19.2
[2023-08-01 07:26] LABS: Glucose - Point of Care 116 mg/dl (70-99)
[2023-08-01 07:40] VITALS: BP 135/81
[2023-08-01] MEDS: NOVOLOG FLEXPEN-LOW RESISTANCE SC (07:48)
[2023-08-01] MEDS: TESSALON PERLES 200 MG PO (07:48)
[2023-08-01 08:55] LABS: Hematocrit 38.1 % (37.0-47.0); Hemoglobin 12.7 g/dL (12.0-16.0); Mean Corp Hgb Conc. 33.3 g/dL (33.0-37.0); Mean Corpuscular Hgb 30.2 pg (27.0-31.0); Mean Corpuscular Volume 90.7 fL (81.0-99.0); Mean Platelet Volume 9.9 fL (7.4-10.4); Platelet Count 643 10^3/uL (130-400); Red Cell Dist. Width 13.9 % (11.5-14.5); White Blood Cell Count 16.8 10^3/uL (4.8-10.8)
[2023-08-01 09:19] LABS: Blood Urea Nitrogen 23 mg/dl (7-17); Calcium 9.9 mg/dl (8.4-10.2); Carbon Dioxide 30 mmol/L (22-30); Chloride 95 mmol/L (98-107); Estimated Creatinine Clearance 74 ml/min; Glucose 114 mg/dl (70-99); Magnesium 2.1 mg/dl (1.6-2.3); Potassium 5.4 mmol/L (3.5-5.1); Sodium 132 mmol/L (135-145); eGFR > 60.00
--- NOTE | 2023-08-01 11:06 | PTCARENOTE ---
Patient was in bathroom washing face when she felt her heart racing and got SOB accompanied by anxiety. Patient Stach with heart rate of 137. Patient resting in chair with oxygen on - heart rate down to 110 at this time.
[2023-08-01 11:20] VITALS: BP 149/87
[2023-08-01 12:06] LABS: Glucose - Point of Care 166 mg/dl (70-99)
[2023-08-01] MEDS: NOVOLOG FLEXPEN-LOW RESISTANCE 1 UNITS SC (12:14)
--- NOTE | 2023-08-01 14:04 | W.PN.HOSP.TC ---
Today's Communication/Plan
-
d/c if cleared by pulm
Assessment / Plan
Assessment / Plan
pt is a 63 year old female
sepsis (by criteria tachycardia and elevated wbc) and Acute hypoxic respiratory insufficiency - pt with severe sarcoidosis with recent change in regimen to steroids and MTX-- unclear if exacerbated by allergies- Her symptoms started after having
upper respiratory tract infection symptoms including runny nose, cough and scanty phlegm--COVID-negative and influenza--Procalcitonin normal--suspect progressive sarcoidosis with flare--apprec pulm/ID--will need long steroid taper at d/c
hyponatremia--due to lung process--follow
hyperglycemia likely from steroids--follow
DVT prophylaxis--Lovenox
CODE status--full code
Anticipated Discharge: Today
Subjective/Interval History
-
Date of Service: August 01, 2023
pt not requiring O2 but pulse still increases
Objective Data
-
Labs:
Laboratory Results
08/01/23
08:23
WBC 16.8 H
Hgb 12.7
Hct 38.1
Plt Count 643 H D
Sodium 132 L
Potassium 5.4 H
Chloride 95 L
Carbon Dioxide 30
BUN 23 H
Creatinine 0.5 L
Glucose 114 H
Calcium 9.9
Vital Signs:
max temp for 24 hours
08/01/23
11:20
Temp 98 F
Vital Signs
Temp Pulse Resp BP Pulse Ox
98 F 115 18 149/87 98
08/01/23 11:20 08/01/23 11:20 08/01/23 11:20 08/01/23 11:20 08/01/23 11:36
I&O
07/31/23 08/01/23 08/02/23
06:59 06:59 06:59
Intake Total 1919 1080 / 1080
Balance 1919 1080 / 1080
Review of Systems
-
All other systems: Reviewed and negative
Physical Exam
-
General: Well Developed, Well Nourished and No Apparent Distress
HEENT: Normocephalic and Atraumatic; Negative Oxygen
Respiratory: Clear to Auscultation
Cardiac: Regular Rhythm; Negative S1/S2 or Murmur
GI: Soft, Nontender, Nondistended and Normal Bowel Sounds
Musculoskeletal: No Clubbing, No Cyanosis and No Edema
Neuro: Awake
[2023-08-01] MEDS: FOLVITE 1 MG PO (14:12)
[2023-08-01] MEDS: WELLBUTRIN XL (24 hour extended release) 150 MG PO (14:13)
[2023-08-01] MEDS: PROTONIX 40 MG PO (14:13)
[2023-08-01] MEDS: WELLBUTRIN XL (24 hour extended release) 300 MG PO (14:13)
--- NOTE | 2023-08-01 14:47 | W.PN.UPDATE ---
Update Note
Progress Note Update
Reevaluated patient, comfortably sitting on the chair.
Able to speak in full sentences.
Tachycardia with exertion suspected with underlying significant pneumonitis.
Discussed with patient in detail.
There was no oxygen requirement with exertion.
My perspective okay to discharge her home.
She was advised to increase physical activity as tolerated. Discussed energy conservation.
She has an appointment on August 15 with her mold repairer at [facility].
[2023-08-01 15:35] VITALS: BP 138/94
--- NOTE | 2023-08-01 15:44 | W.DCSUMMARY ---
Discharge Summary
Discharge Data
Date of Admission: 07/25/23
Date of Discharge: 08/01/23
-
Pending Results: No
Hospital Course
Primary care physician : Stefany Toribio
Principal Discharge diagnosis : Sepsis by criteria with acute hypoxemic respiratory insufficiency consistent with sarcoidosis flare, hyponatremia, hyperglycemia
Chronic Discharge diagnosis : Chronic severe sarcoidosis
Hospital Course : Patient is a 63-year-old female with a history of sarcoidosis who presented with productive cough, shortness of breath since the Tuesday prior to admission. Shortness of breath is worse with activity and her pulse ox was known to
be in the low 60s at home with ambulation. She stated that she may have had a fever as well. She complains of headache and nausea but no vomiting. Pulse ox on arrival was 80% on room air. Patient received a dose of steroids chest x-ray showed
severe sarcoidosis and the patient was admitted.
Problem #1: Sepsis by criteria with acute hypoxemic respiratory insufficiency consistent with sarcoidosis flare. Patient was admitted and seen in consultation by pulmonary. She was placed on oxygen therapy which was eventually weaned off. She was
placed on high-dose steroids and slowly weaned. With activity patient's heart rate did bump into the 130s likely due to deconditioning and her oxygen issues. Plans are for her to have a very slow taper starting from 50 mg daily and tapering every
4 days x 10 mg until she gets to her outpatient dose of 15 mg daily. She should follow-up with her bridge engineer as an outpatient. Patient was also seen in consultation by infectious disease. This was thought to be a viral respiratory infection
that possibly predisposed her. Antibiotics which were started were then stopped. We did not recommend any further antibiotics moving forward. Covid and influenza testing were negative.
Problem #2: Hyponatremia/hyperglycemia. These were related to her pulmonary process. They were followed and treated as needed.
Patient is stable for discharge home at this time. If there are any questions regarding this dictation or her hospital stay, please not hesitate to call. Our office number is [phone].
Important imaging findings :
CT SCAN CHEST IMPRESSION:
1. Moderate reticular interstitial thickening and bronchiectasis bilaterally, most pronounced within the upper lobes bilaterally. Calcified mediastinal lymph nodes. Findings are not significant change compared to prior CT, and are consistent with
chronic interstitial lung disease/sarcoidosis.
2. In addition, there is extensive superimposed groundglass opacity bilaterally and diffusely, which is new compared to prior CT dated 01/29/2023. Differential diagnosis includes superimposed infectious or inflammatory alveolitis, exacerbation of
interstitial lung disease, pulmonary hemorrhage, among others.
Discharge Plan
-
Patient Disposition: Home (Routine Discharge)
Discharge Diagnosis/Procedures: Sepsis by criteria and acute hypoxemic respiratory insufficiency due to presumed sarcoidosis flare, hyponatremia, hyperglycemia
Condition: Good
Diet: As tolerated and Regular
Activity: As tolerated
Driving Restrictions: As prior to admission
Bathing Restrictions: None
Referrals:
Justice Bustillo MD [Active] - in two to three weeks
Stefany Toribio CRNP [Family Provider] - in less than 1 week
Prescriptions:
New
acetaminophen 325 mg Tablet
650 mg PO Q4HPRN PRN (Reason: mild pain/ROMERO/temp> 100.4F) Qty: 0 0RF
benzonatate 100 mg Capsule
200 mg PO BID Qty: 30 0RF
prednisone 10 mg Tablet
See Rx Instructions .ROUTE .COMPLEX Qty: 60 0RF
Rx Instructions:
Take By Mouth:
50 mg daily x4 days, 40 mg daily x4 days,
30 mg daily x4 days, 20 mg daily x4 days,
15 mg daily thereafter
Continued
bupropion HCl 150 MG tablet sustained-release 12 hr
150 mg PO DAILY@1400
Patient Comments:
07/25/2023: taken w/ 300mg = 450mg
ondansetron HCl 4 MG tablet
4 mg PO Q12H PRN (Reason: nausea)
albuterol sulfate [Ventolin HFA] 90 MCG/PUFF HFA aerosol inhaler
2 puff inhalation R Q6 PRN (Reason: sob/wheezing)
methotrexate sodium 2.5 mg tablet
7.5 mg PO ALANIZ
folic acid 1 mg tablet
1 mg PO DAILY@1400
omeprazole magnesium [Prilosec OTC] 20 mg Tablet,Delayed Release (Dr/Ec)
20 mg PO DAILY@1400
bupropion HCl 300 mg tablet extended release 24 hr
300 mg PO DAILY@1400
Patient Comments:
07/25/2023: taken w/ 150mg = 450mg
Discontinued
prednisone 5 mg tablet
15 mg PO DAILY@1400
Discharge Orders:
Discharge Patient (As Directed); Ordered 08/01/23
Ordered By: Fern Anaya
Discharge Date and Time
Print Language: [place]
--- NOTE | 2023-08-01 15:50 | PTCARENOTE ---
Reviewed discharge instructions with patient. Patient verbalizes understanding of all teaching. Denies questions at this time. Peripheral IV removed. Tele removed. Awaiting arrival of son for transport home.
--- NOTE | 2023-08-01 16:06 | CM ---
Ambulating on room air.
Pox RM 98%.
Pt said she was ready for dc.
She said her son will drive her home.
Offered VN she declined need.
PLAN Home no needs
== END 2023-08-01 16:22 | disposition home or self-care (01) | DRG 872 ==
LOC: 4 EAST ACU 22:47
PROVIDERS: Emergency Medicine; Registered Nurse; ADMITTING PHYSICIAN Internal Medicine; ATTENDING PHYSICIAN Internal Medicine; CONSULT PHYSICIAN Internal Medicine Critical Care Medicine; CONSULT PHYSICIAN Student in an Organized Health Care Education/Training Program; EMERGENCY PHYSICIAN Student in an Organized Health Care Education/Training Program; FAMILY PHYSICIAN Nurse Practitioner
DX: A41.89 Other specified sepsis (principal); E87.1 Hypo-osmolality and hyponatremia; J84.9 Interstitial pulmonary disease, unspecified; D86.0 Sarcoidosis of lung; T38.0X5A Adverse effect of glucocorticoids and synthetic analogues, initial encounter; R73.9 Hyperglycemia, unspecified; Z87.891 Personal history of nicotine dependence; Z11.52 Encounter for screening for COVID-19; D64.9 Anemia, unspecified
CPT/HCPCS: 71046; 71250; 80048; 80053; 82164; 82962; 83036; 83735; 83880; 84145; 85025; 85027; 86140; 87502; 87811; 94640; 96374; 96375; 99285

== ENCOUNTER → 2023-08-30 13:43 | Outpatient (REF) | payer OTHER, SELFPAY | LOC: HWRAD 13:43 | PROVIDERS: ATTENDING PHYSICIAN Nurse Practitioner; FAMILY PHYSICIAN Nurse Practitioner | DX: D86.9 Sarcoidosis, unspecified (principal) | CPT/HCPCS: 71046 ==

== ENCOUNTER 2023-10-16 10:17 | Emergency (ER) | payer OTHER, SELFPAY ==
[2023-10-16 10:44] VITALS: BP 142/71
[2023-10-16 10:57] VITALS: BMI 19.0
[2023-10-16 11:10] VITALS: BP 162/91
[2023-10-16] MEDS: NSS 1000 IV (11:28)
--- NOTE | 2023-10-16 11:30 | ED.GENMED ---
History of Present Illness
General
Chief Complaint: Rectal Bleeding
Time Seen by Provider: 10/16/23 10:57
History of Present Illness
History of Present Illness:
63-year-old female with history of sarcoidosis on daily steroids and methotrexate presenting to the emergency department for bloody diarrhea. Patient reports that she recently returned from [place]. Yesterday morning she started to have bloody
diarrhea. She notes that she is having diarrhea about every hour, with liquidy/bloody stools, some clots. She is not on any blood thinners. She notes some cramping and soreness in the abdomen. She traveled with family, none of which are sick.
She denies fever. She denies chest pain or difficulty breathing. She denies ever having this issue in the past. She denies additional acute medical complaints
Past History
Past History
ED Past Medical History: Other (sarcoidosis)
ED Past Surgical History: Cholecystectomy, and Other (Breast augmentation)
Social History
Tobacco: Non-smoker
Alcohol: Occasional
Drug: None
Personal:
Living: with family
Employment: Not employed
Phy Exam
Physical Exam
Physical Exam:
General: Well-appearing, no clinical signs of dehydration, nontoxic and in no acute distress
HEENT: protecting airway
Neck: appears supple
CV: Normal heart rate, regular rhythm, no evidence of cyanosis
Resp: No accessory muscle use, no increased work of breathing, lungs clear to auscultation bilaterally
Abd: Soft and non-distended, generalized tenderness, no
Rectal: Hemoccult positive brown stool. No mariajose hemorrhage
Extremities: No deformities, no swelling, no erythema, pulses and sensation intact
Neuro: alert, no focal neurologic deficit
: deferred
Rectal: deferred
Psych: Normal affect
Skin: Intact
Course
Orders/Labs/Results
Orders:
Orders
10/16/23 11:08
CMP [Comprehensive Metabolic Panel] Urgent
Complete Blood Count/With Diff Urgent
10/16/23 11:18
CT Abd/pelvis W Iv Cont Urgent
Comment:
Reason For Exam: bloody diarrhea
0.9% Sodium Chloride 1000 ml [Nss] 1,000 ml IV BOLUS
10/16/23 12:12
Urinalysis Urgent
Date Specimen was Collected: 10/16/23
Time Specimen was Collected: 11:21
Abnormal Lab Results
10/16/23 10/16/23
11:08 12:12
Plt Count 442 H 10^3/uL
(130-400)
Absolute Neuts (auto) 8.7 H 10^3/uL
(1.4-6.5)
Absolute Lymphs (auto) 0.7 L 10^3/uL
(1.2-3.4)
Absolute Monos (auto) 0.9 H 10^3/uL
(0.1-0.6)
Neutrophils % 82.6 H %
(42.2-75.2)
Lymphocytes % 6.7 L %
(20.5-51.1)
Creatinine 0.5 L mg/dL
(0.6-1.0)
Glucose 107 H mg/dl
(70-99)
Urine Ketones Trace A
(Negative)
10/16/23 11:08
10/16/23 11:08
Vital Signs
Initial and Last Documented VS:
Initial Vital Signs
Temp Pulse Resp BP Pulse Ox
98.0 F 123 17 142/71 96
10/16/23 10:44 10/16/23 10:44 10/16/23 10:44 10/16/23 10:44 10/16/23 10:44
Last Documented Vital Signs
Temp Pulse Resp BP Pulse Ox
98.0 F 109 17 130/82 95
10/16/23 10:44 10/16/23 12:15 10/16/23 10:44 10/16/23 12:11 10/16/23 12:15
MDM/Problems Addressed
MDM/Problems Addressed:
63-year-old female with history of sarcoidosis on methotrexate and prednisone presenting for bloody diarrhea after returning from [place]. Vital signs are significant for tachycardia.
On exam, patient resting comfortably, no acute distress. Benign cardiac and pulmonary exam with the exception of tachycardia, suspected from dehydration, dry mucous membranes. Abdominal exam relatively benign, soft, nondistended, with generalized
tenderness, described as a 'soreness '. Rectal exam also benign, without any mariajose blood or hemorrhage. Symptoms appear most consistent with colitis and traveler's diarrhea. Given signs of dehydration, will obtain laboratory analysis and start
patient IV fluids. Given immunocompromise state, will also obtain CT abdominal imaging to rule out additional acute pathology.
13:30 -patient's labs are unremarkable with normal hemoglobin. Urine without signs of infection, small amount of ketones. Normal chemistry panel. CT shows evidence of sigmoid thickening, inflammatory versus infection. Given patient's
immunocompromise state, will err on the side of caution and start patient antibiotics, which is patient's preference. Patient cannot take fluoroquinolones because she is on steroids. For this reason we will start on Augmentin. Patient otherwise
remains hemodynamically stable. Feel stable for discharge with continued expectant management and supportive therapy. Strict return precautions communicated and patient verbalized understanding
*Critical Care Note
Total Time (30-74mins, 75-104mins- exclusive of procedures): Not Applicable
ED Attending Note
-
Portions of this chart may have been created with voice recognition software.� Occasional wrong word or��sound alike� substitutions may have occurred due to the inherent limitations of voice recognition software.
Discharge Plan
Departure
Prescriptions:
No Action
bupropion HCl 150 MG tablet sustained-release 12 hr
150 mg PO DAILY@1400
Patient Comments:
07/25/2023: taken w/ 300mg = 450mg
ondansetron HCl 4 MG tablet
4 mg PO Q12H PRN (Reason: nausea)
albuterol sulfate [Ventolin HFA] 90 MCG/PUFF HFA aerosol inhaler
2 puff inhalation R Q6 PRN (Reason: sob/wheezing)
methotrexate sodium 2.5 mg tablet
7.5 mg PO ALANIZ
folic acid 1 mg tablet
1 mg PO DAILY@1400
omeprazole magnesium [Prilosec OTC] 20 mg Tablet,Delayed Release (Dr/Ec)
20 mg PO DAILY@1400
bupropion HCl 300 mg tablet extended release 24 hr
300 mg PO DAILY@1400
Patient Comments:
07/25/2023: taken w/ 150mg = 450mg
acetaminophen 325 mg Tablet
650 mg PO Q4HPRN PRN (Reason: mild pain/ROMERO/temp> 100.4F) Qty: 0 0RF
benzonatate 100 mg Capsule
200 mg PO BID Qty: 30 0RF
prednisone 10 mg Tablet
See Rx Instructions .ROUTE .COMPLEX Qty: 60 0RF
Rx Instructions:
Take By Mouth:
50 mg daily x4 days, 40 mg daily x4 days,
30 mg daily x4 days, 20 mg daily x4 days,
15 mg daily thereafter
Referrals:
Stefany Toribio CRNP [Family Provider] -
Interventions
Interventions:
*Risk Screen - Suicide Last Done: 10/16/23 10:57
*General Assessment Last Done: 10/16/23 10:57
*Neglect/Abuse Screening Last Done: 10/16/23 10:57
ED- Fall Risk Assessment Last Done: 10/16/23 10:57
*ED COVID-19 Vaccine History Last Done: 10/16/23 10:57
BO-Gdajdq-Emjedtbzgl Assessment Last Done: 10/16/23 10:57
ED- Cardiac Assessment Last Done: 10/16/23 10:57
ED- Pulmonary Assessment Last Done: 10/16/23 10:57
Discharge Date and Time
Print Language: [place]
[2023-10-16 11:36] LABS: ALT (SGPT) 15 U/L (0-35); AST (SGOT) 28 U/L (14-36); Albumin 4.5 g/dl (3.5-5.0); Alkaline Phosphatase 64 U/L (38-126); Blood Urea Nitrogen 11 mg/dl (7-17); Calcium 9.8 mg/dl (8.4-10.2); Carbon Dioxide 30 mmol/L (22-30); Chloride 100 mmol/L (98-107); Estimated Creatinine Clearance 73 ml/min; Glucose 107 mg/dl (70-99); Sodium 137 mmol/L (135-145); Total Bilirubin 0.7 mg/dl (0.2-1.3); Total Protein 7.3 g/dl (6.3-8.2); eGFR > 60.00
[2023-10-16 11:38] LABS: % Basophils 0.5 % (0-2); % Eosinophils 1.4 % (0-6); % Immature Granulocytes 0.4 % (0-0.5); % Lymphocytes 6.7 % (20.5-51.1); % Monocytes 8.4 % (1.7-9.3); % Neutrophils 82.6 % (42.2-75.2); Absolute Basophils 0.1 10^3/uL (0-0.2); Absolute Eosinophils 0.2 10^3/uL (0-0.7); Absolute Lymphocytes 0.7 10^3/uL (1.2-3.4); Absolute Monocytes 0.9 10^3/uL (0.1-0.6); Absolute Neutrophils 8.7 10^3/uL (1.4-6.5); Hematocrit 40.6 % (37.0-47.0); Hemoglobin 14.1 g/dL (12.0-16.0); Mean Corp Hgb Conc. 34.7 g/dL (33.0-37.0); Mean Corpuscular Volume 86.4 fL (81.0-99.0); Mean Platelet Volume 10.1 fL (7.4-10.4); Nucleated Red Blood Cells % 0 %; Platelet Count 442 10^3/uL (130-400); Red Cell Dist. Width 14.4 % (11.5-14.5); White Blood Cell Count 10.6 10^3/uL (4.8-10.8)
[2023-10-16 12:11] VITALS: BP 130/82
[2023-10-16 12:20] LABS: Urine Albumin Negative (Neg - Trace); Urine Bilirubin Negative (Negative); Urine Character Clear (Clear); Urine Color Yellow; Urine Glucose Negative (Negative); Urine Ketone Trace (Negative); Urine Leukocyte Negative (Negative); Urine Nitrite Negative (Negative); Urine Occult Blood Negative (Negative); Urine Urobilinogen Negative (Neg - 1+)
[2023-10-16 13:48] VITALS: BP 130/80
== END 2023-10-16 13:49 | disposition home or self-care (01) ==
LOC: EMR 10:17
PROVIDERS: EMERGENCY PHYSICIAN Student in an Organized Health Care Education/Training Program; FAMILY PHYSICIAN Nurse Practitioner
DX: K52.9 Noninfective gastroenteritis and colitis, unspecified (principal); D86.9 Sarcoidosis, unspecified
CPT/HCPCS: 99284; 96360; 74177; 80053; 81003; 85025; Q9967

== ENCOUNTER 2023-11-23 13:40 | Emergency (ER) | payer OTHER, SELFPAY ==
[2023-11-23 13:47] VITALS: BP 164/110
[2023-11-23 14:07] LABS: % Basophils 0.2 % (0-2); % Eosinophils 0.4 % (0-6); % Immature Granulocytes 0.6 % (0-0.5); % Lymphocytes 4.8 % (20.5-51.1); % Monocytes 7.3 % (1.7-9.3); % Neutrophils 86.7 % (42.2-75.2); Absolute Eosinophils 0.1 10^3/uL (0-0.7); Absolute Immature Granulocytes 0.1 10^3/uL (0-0.05); Absolute Lymphocytes 0.9 10^3/uL (1.2-3.4); Absolute Monocytes 1.3 10^3/uL (0.1-0.6); Absolute Neutrophils 15.7 10^3/uL (1.4-6.5); Hematocrit 37.9 % (37.0-47.0); Hemoglobin 12.9 g/dL (12.0-16.0); Mean Corpuscular Hgb 30.4 pg (27.0-31.0); Mean Corpuscular Volume 89.2 fL (81.0-99.0); Nucleated Red Blood Cells % 0 %; Platelet Count 441 10^3/uL (130-400); Red Blood Cell Count 4.25 10^6/uL (4.20-5.40); Red Cell Dist. Width 13.2 % (11.5-14.5); White Blood Cell Count 18.1 10^3/uL (4.8-10.8)
[2023-11-23 14:19] LABS: INR 0.99; PT 13.1 Sec (11.4-14.6)
[2023-11-23 14:23] LABS: ALT (SGPT) 18 U/L (0-35); AST (SGOT) 25 U/L (14-36); Albumin 4.2 g/dl (3.5-5.0); Alkaline Phosphatase 75 U/L (38-126); Blood Urea Nitrogen 10 mg/dl (7-17); Calcium 10.1 mg/dl (8.4-10.2); Carbon Dioxide 30 mmol/L (22-30); Chloride 97 mmol/L (98-107); Glucose 100 mg/dl (70-99); Potassium 3.1 mmol/L (3.5-5.1); Sodium 136 mmol/L (135-145); Total Bilirubin 0.6 mg/dl (0.2-1.3); Total Protein 7.3 g/dl (6.3-8.2); eGFR > 60.00
[2023-11-23 14:28] LABS: Troponin I < 0.012 ng/ml
[2023-11-23 14:48] VITALS: BP 171/88
--- NOTE | 2023-11-23 15:41 | ED.GENMED ---
History of Present Illness
<Marcia Stewart PA-C - Last Filed: 11/24/23 22:47>
General
Chief Complaint: Breathing Problem
Source: patient
Exam Limitations: none
Time Seen by Provider: 11/23/23 14:37
Nursing documentation reviewed up to this point in time: agreed with
History of Present Illness
History of Present Illness:
Patient is a 63-year-old female with history sarcoidosis presenting to the emergency department with left-sided chest discomfort. Patient states that over the past 2 weeks she has noticed general worsening in fatigue, intermittent chest discomfort
both on the left and right side with some radiation to the back. She also endorses a productive cough with yellow/green sputum. No known fevers or chills. Patient denies any pleuritic or exertional component to chest pain. No known trauma or
inciting event.
Patient did speak with her entry analyst following her most recent blood work this Tuesday. She did notice an elevated white blood cell count and sent patient a prescription for Levaquin to cover for possible pneumonia. Patient's entry analyst did
plan to schedule for an outpatient CT scan to rule out any evidence of pulmonary embolism. Patient was concerned given the worsening in the pain and came to the emergency department for further evaluation.
Patient follows with Dr. Elizondo at [facility] as her sarcoid specialist.
Patient no history of blood clots in the past.
Past History
<Marcia Stewart PA-C - Last Filed: 11/24/23 22:47>
Past History
ED Past Medical History: Other (sarcoidosis)
ED Past Surgical History: Cholecystectomy, and Other (Breast augmentation)
Social History
Tobacco: Non-smoker
Alcohol: Occasional
Drug: None
Personal:
Living: with family
Employment: Not employed
Review of Systems
<Marcia Stewart PA-C - Last Filed: 11/24/23 22:47>
Review of Systems
Allergies reviewed?: Yes
All Other Systems: ROS reviewed and negative except as documented in HPI and ROS
Phy Exam
<Marcia Stewart PA-C - Last Filed: 11/24/23 22:47>
Physical Exam
Physical Exam:
Vitals: Hypertensive, tachycardic otherwise vital signs stable. Oxygenating well on room air
General: Patient is well appearing, no acute distress
Skin: Warm and dry, no rashes or lesions
Head: Normocephalic, atraumatic
Eyes: Sclera nonicteric. EOMs intact. No nystagmus.
Throat: Protecting airway
Neck: Normal ROM, no cervical spine tenderness, no meningismus. Trachea midline
Cardiac: Tachycardic, normal rhythm, no murmurs.
Pulm: In no apparent respiratory distress. Oxygenation 98 on room air. Expiratory wheeze bilaterally with congestion. Occasional cough.
Abdomen: Abdomen soft. No abdominal tenderness.
Extremities: No evidence of cyanosis or edema. Great distal pulses. No erythema, warmth of bilateral lower extremities
Neuro: AAOx3. CN II-XII intact. No focal neurologic deficits.
Psychiatric: Normal affect.
Scores
<Marcia Stewart PA-C - Last Filed: 11/24/23 22:47>
Heart Failure Risk
Heart Failure Risk Score: Not Applicable
Course
<Marcia Stewart PA-C - Last Filed: 11/24/23 22:47>
Orders/Labs/Results
Orders:
Orders
11/23/23 13:47
EKG [Electrocardiogram (*1)] Urgent
Reason for Study: Shortness of Breath
EKG- Treatment ONCE
CR Chest - 2 Views Urgent
Comment:
Reason For Exam: shortness of breath
11/23/23 13:57
Complete Blood Count/With Diff Urgent
Comprehensive Metabolic Panel Urgent
Prothrombin Time Urgent
Troponin I Urgent
11/23/23 15:17
0.9% Sodium Chloride 1000 ml [Nss] 1,000 ml IV BOLUS
Potassium Chloride [KCl] 40 meq PO NOW STA
11/23/23 15:19
CT Chest Pe Study Urgent
Comment: hx sarcoidosis
Reason For Exam: L chest pain, productive cough
Ipratropium/Albuterol Sulfate [Duoneb] 3 ml INH R NOW STA
11/23/23 15:44
Ketorolac [Toradol] 15 mg IV NOW STA
11/23/23 16:22
Potassium Chloride 10% Elixir [KCl Elixir] 40 meq PO NOW STA
11/23/23 17:07
Case Management Consult ONCE
Case Management Consult: Discharge Planning
Abnormal Lab Results
11/23/23
13:57
WBC 18.1 H 10^3/uL
(4.8-10.8)
Plt Count 441 H 10^3/uL
(130-400)
Abs Immat Gran (auto) 0.1 H 10^3/uL
(0-0.05)
Absolute Neuts (auto) 15.7 H 10^3/uL
(1.4-6.5)
Absolute Lymphs (auto) 0.9 L 10^3/uL
(1.2-3.4)
Absolute Monos (auto) 1.3 H 10^3/uL
(0.1-0.6)
Immature Gran % 0.6 H %
(0-0.5)
Neutrophils % 86.7 H %
(42.2-75.2)
Lymphocytes % 4.8 L %
(20.5-51.1)
Potassium 3.1 L mmol/L
(3.5-5.1)
Chloride 97 L mmol/L
(98-107)
Creatinine 0.5 L mg/dL
(0.6-1.0)
Glucose 100 H mg/dl
(70-99)
11/23/23 13:57
11/23/23 13:57
Vital Signs
Initial and Last Documented VS:
Initial Vital Signs
Temp Pulse Resp BP Pulse Ox
99.0 F 118 18 164/110 98
11/23/23 13:47 11/23/23 13:47 11/23/23 13:47 11/23/23 13:47 11/23/23 13:47
Last Documented Vital Signs
Temp Pulse Resp BP Pulse Ox
99.0 F 113 16 160/86 97
11/23/23 13:47 11/23/23 17:20 11/23/23 17:20 11/23/23 17:20 11/23/23 17:20
<Arpit Horn DO - Last Filed: 11/23/23 20:19>
Orders/Labs/Results
Orders:
Orders
11/23/23 13:47
EKG [Electrocardiogram (*1)] Urgent
Reason for Study: Shortness of Breath
EKG- Treatment ONCE
CR Chest - 2 Views Urgent
Comment:
Reason For Exam: shortness of breath
11/23/23 13:57
Complete Blood Count/With Diff Urgent
Comprehensive Metabolic Panel Urgent
Prothrombin Time Urgent
Troponin I Urgent
11/23/23 15:17
0.9% Sodium Chloride 1000 ml [Nss] 1,000 ml IV BOLUS
Potassium Chloride [KCl] 40 meq PO NOW STA
11/23/23 15:19
CT Chest Pe Study Urgent
Comment: hx sarcoidosis
Reason For Exam: L chest pain, productive cough
Ipratropium/Albuterol Sulfate [Duoneb] 3 ml INH R NOW STA
11/23/23 15:44
Ketorolac [Toradol] 15 mg IV NOW STA
11/23/23 16:22
Potassium Chloride 10% Elixir [KCl Elixir] 40 meq PO NOW STA
11/23/23 17:07
Case Management Consult ONCE
Case Management Consult: Discharge Planning
Abnormal Lab Results
11/23/23
13:57
WBC 18.1 H 10^3/uL
(4.8-10.8)
Plt Count 441 H 10^3/uL
(130-400)
Abs Immat Gran (auto) 0.1 H 10^3/uL
(0-0.05)
Absolute Neuts (auto) 15.7 H 10^3/uL
(1.4-6.5)
Absolute Lymphs (auto) 0.9 L 10^3/uL
(1.2-3.4)
Absolute Monos (auto) 1.3 H 10^3/uL
(0.1-0.6)
Immature Gran % 0.6 H %
(0-0.5)
Neutrophils % 86.7 H %
(42.2-75.2)
Lymphocytes % 4.8 L %
(20.5-51.1)
Potassium 3.1 L mmol/L
(3.5-5.1)
Chloride 97 L mmol/L
(98-107)
Creatinine 0.5 L mg/dL
(0.6-1.0)
Glucose 100 H mg/dl
(70-99)
11/23/23 13:57
11/23/23 13:57
Vital Signs
Initial and Last Documented VS:
Initial Vital Signs
Temp Pulse Resp BP Pulse Ox
99.0 F 118 18 164/110 98
11/23/23 13:47 11/23/23 13:47 11/23/23 13:47 11/23/23 13:47 11/23/23 13:47
Last Documented Vital Signs
Temp Pulse Resp BP Pulse Ox
99.0 F 113 16 160/86 97
11/23/23 13:47 11/23/23 17:20 11/23/23 17:20 11/23/23 17:20 11/23/23 17:20
<Marcia Stewart PA-C - Last Filed: 11/24/23 22:47>
MDM/Problems Addressed
Differential Diagnosis Includes:
Not limited to: Sarcoidosis, pleurisy, costochondritis, bronchitis, pericarditis, pericardial effusion, pneumonia, PE
MDM/Problems Addressed:
63-year-old female presenting with left-sided chest discomfort which appears pleuritic in nature. Patient reports cough over the past 2 weeks with acute worsening today associated with shortness breath both with exertion and at rest. Was working
on getting scheduled for CT scan to rule out PE by her entry analyst. Patient is hypertensive, tachycardic on arrival to emergency department. She is afebrile. Oxygen saturation 98 on room air. Physical exam as above. She does have noticeable
increased work of breathing. Wheezing bilaterally with congestion and occasional cough. Tachycardic, otherwise heart sounds regular. No reproducible chest wall tenderness. Patient is perfusing well with great distal pulses. No clinical evidence
of DVT on exam. Labs were initiated which reveal a leukocytosis of 18,000. Mild hypokalemia of 3.1. Otherwise no clinically significant abnormalities. A chest x-ray was obtained in triage which shows findings consistent with pulmonary
sarcoidosis. EKG shows sinus tachycardia without any acute ischemic changes. Will give DuoNeb, replete potassium. Will check PE study given patient's symptoms and associated tachycardia.
Patient does report some improvement following DuoNeb. CTA chest shows no evidence of pulmonary embolism. Findings consistent with sarcoidosis without significant changes. No evidence of focal pneumonia. Patient has been coughing relatively
consistency over the past 2 weeks. Suspect symptoms like related to underlying bronchitis/pleurisy/costochondritis. Will discharge patient with nebulizer machine as she does have solution at home but no machine. Given albuterol [facility] start
patient on 20 mg of potassium daily. Advised to take Levaquin as prescribed at entry analyst to cover possible underlying pneumonia. Otherwise�patient with stable vital signs. Not hypoxic. Will discharge with close pulmonology follow-up. Return
precautions discussed length. Patient comfortable with plan. Patient seen by attending physician.
Chronic conditions affecting care:
Sarcoidosis
Acute Exacerbation and/or Progression of Chronic Illness:
N/A
<Marcia Stewart PA-C - Last Filed: 11/24/23 22:47>
*Radiology
Radiology exam reviewed: radiology read reviewed
*Pulse Oximetry
Patient hypoxic: no
*EKG
Interpreted by ED Provider?: Yes
EKG Intrepretation Date: 11/23/23
Comparison EKG: no changes
Heart Rate: 116
Rate: tachycardiac
Rhythm: sinus
Interval: normal interval
QRS Pattern: normal QRS
Ischemia: no ischemia
*Agile Scrum Coach Interpretation
Rate: tachycardiac
Interpretation: abnormal
Heart Rate: 110
Rhythm: sinus
*Critical Care Note
Total Time (30-74mins, 75-104mins- exclusive of procedures): Not Applicable
ED Attending Note
<Marcia Stewart PA-C - Last Filed: 11/24/23 22:47>
-
Portions of this chart may have been created with voice recognition software.� Occasional wrong word or��sound alike� substitutions may have occurred due to the inherent limitations of voice recognition software.
<Arpit Horn DO - Last Filed: 11/23/23 20:19>
ED Attending Note
Patient seen and examined by attending physician: Yes
I performed the substantive portion of visit, reviewed & personally made and approve the management plan that is documented in note by myself or VIPUL.: Yes
ED Attending Note:
Patient is a 63-year-old female with a history of sarcoidosis and presents with left chest pain that seems to be pleuritic in nature. Patient's had a cough that is chronic for the last 2 weeks. Patient has been in [place] and got a parasitic
intestinal infection. Patient was to get a CT of her chest through her entry analyst. Patient says the cough is worse in the morning. Patient does not smoke. Patient does feel short of breath even at rest. Patient denies any further GI
problems. On physical exam the patient does have some wheezing and congestion. Heart is regular without murmur. Neck is supple without neck vein distention. Abdomen soft nontender. Extremities without cyanosis or edema. Patient's white count
is elevated. Patient has been on prednisone in the past without this elevated white count. Patient's potassium is low. Patient is being placed on DuoNebs so she will require oral potassium because of the effects of albuterol. Patient does not
have a PE on CT. EKG is unremarkable. Patient appears to have bronchitis. Suggested the patient use a vaporizer or humidifier. Especially at night before bed. Patient coughs for half hour in the morning. Patient feels as though it is mucus but
unable to get it up. Patient will continue present medications including the Levaquin.
Discharge Plan
Departure
Patient Disposition: Home (Routine Discharge)
Date of Disposition: 11/23/23
Time of Disposition: 17:14
Patient with high blood pressure during this ER visit?: Yes
Condition: Good
Discharge Problem:
Pleuritic chest pain
Instructions: How to Use a Nebulizer, Adult, BLOOD PRESSURE, Pleurisy
Prescriptions:
New
potassium chloride 20 mEq tablet extended release
20 meq PO DAILY Qty: 30 0RF
No Action
bupropion HCl 150 MG tablet sustained-release 12 hr
150 mg PO DAILY@1400
Patient Comments:
07/25/2023: taken w/ 300mg = 450mg
ondansetron HCl 4 MG tablet
4 mg PO Q12H PRN (Reason: nausea)
albuterol sulfate [Ventolin HFA] 90 MCG/PUFF HFA aerosol inhaler
2 puff inhalation R Q6 PRN (Reason: sob/wheezing)
methotrexate sodium 2.5 mg tablet
7.5 mg PO ALANIZ
folic acid 1 mg tablet
1 mg PO DAILY@1400
omeprazole magnesium [Prilosec OTC] 20 mg Tablet,Delayed Release (Dr/Ec)
20 mg PO DAILY@1400
bupropion HCl 300 mg tablet extended release 24 hr
300 mg PO DAILY@1400
Patient Comments:
07/25/2023: taken w/ 150mg = 450mg
acetaminophen 325 mg Tablet
650 mg PO Q4HPRN PRN (Reason: mild pain/ROMERO/temp> 100.4F) Qty: 0 0RF
benzonatate 100 mg Capsule
200 mg PO BID Qty: 30 0RF
prednisone 10 mg Tablet
See Rx Instructions .ROUTE .COMPLEX Qty: 60 0RF
Rx Instructions:
Take By Mouth:
50 mg daily x4 days, 40 mg daily x4 days,
30 mg daily x4 days, 20 mg daily x4 days,
15 mg daily thereafter
amoxicillin-pot clavulanate 875-125 mg tablet
1 tab PO BID 7 Days Qty: 14 0RF
Referrals:
Stefany Toribio CRNP [Family Provider] - Follow up in 5-7 days
Activity Restrictions/Additional Instructions:
RETURN TO THE EMERGENCY DEPARTMENT WITH ANY FEVERS, CHILLS, WORSENING IN CHEST PAIN, SHORTNESS OF BREATH/DIFFICULTY BREATHING, VOMITING BLOOD, SIGNIFICANT FATIGUE, WORSENING IN CURRENT SYMPTOMS, OR ANY OTHER CONCERNS
-As discussed�there is no evidence of a pulmonary embolism on your CT scan today. I would recommend that you continue the antibiotic as prescribed by your entry analyst. You can use the nebulizer machine with the albuterol solution as prescribed
by her entry analyst. And also nebulized sterile water to help clear secretions.
-A prescription for potassium has been sent to your pharmacy. You should take this once a day and have your labs rechecked with your primary care/pulmonology in the next few weeks to ensure trending up. I would recommend potassium rich diet.
-Continue to take all your other medications as prescribed. You can take Tylenol as needed for any discomfort.
-It is very important you follow-up with your entry analyst for further evaluation/management.
Monitor your symptoms closely and return to the emergency department with any acute worsening/new symptoms
Interventions
Interventions:
*Risk Screen - Suicide Last Done: 11/23/23 14:48
*General Assessment Last Done: 11/23/23 14:48
*Neglect/Abuse Screening Last Done: 11/23/23 14:48
ED- Fall Risk Assessment Last Done: 11/23/23 17:47
*ED COVID-19 Vaccine History Last Done: 11/23/23 14:48
*Nursing Disposition Last Done: 11/23/23 17:47
ED- Cardiac Assessment Last Done: 11/23/23 14:48
ED- Pulmonary Assessment Last Done: 11/23/23 14:48
Discharge Date and Time
Discharge Date/Time: 11/23/23 17:47
Print Language: [id number]
[2023-11-23] MEDS: NSS 1000 IV (16:17)
[2023-11-23] MEDS: DUONEB 3 ML INH (16:17)
[2023-11-23] MEDS: TORADOL 15 MG IV (16:34)
[2023-11-23] MEDS: KCL ELIXIR 40 MEQ PO (16:35)
[2023-11-23 17:20] VITALS: BP 160/86
--- NOTE | 2023-11-23 17:31 | CM ---
Chart reviwed. CM consult placed for doctor's appointment. CM introduced self and role. Patient sees a drive in teller at [facility] in [facility]. She has sarcoidosis. PA-C and patient wanted to know if it would be possible to bump up her Pulmonary
Rehab appointment from January 02 to a sooner date. Patient stated that she had talked to a 'Pascale' last time she made the appointment.
CM attempted to call Pulmonary Rehab at: [phone]. A male staff member answered the phone and shared that Pascale would usually set up the appointments, but has left for the day. CM had spoke with Cristiane and shared that it may be too late to
make an appointment but CM would follow up with the NE and patient tomorrow.
Above information relayed to attending KIM, Marcia.
--- NOTE | 2023-11-24 09:21 | CM ---
biofuels operations manager spoke with Pascale with Pulmonary Rehab. She stated the classes are full but that she would 'look into it' and return a phone to after she figures out if she can bump Cristiane up.
Case management left name and number with Pascale.
--- NOTE | 2023-11-25 14:18 | CM ---
Spoke with Pascale at Pulmonary Rehab. She shared that she had 9AM appointment on December 19. CM called patient to let her know. Cristiane confirmed that time and day would work and that she would also confirm with Pascale. OMA shared Pascale's number
and patient's son wrote the number down.
== END 2023-11-23 17:47 | disposition home or self-care (01) ==
LOC: EMR 13:40
PROVIDERS: EMERGENCY PHYSICIAN Emergency Medicine; FAMILY PHYSICIAN Nurse Practitioner
DX: R07.89 Other chest pain (principal); R05.8 Other specified cough; D86.9 Sarcoidosis, unspecified; F41.9 Anxiety disorder, unspecified; Z87.01 Personal history of pneumonia (recurrent); Z90.49 Acquired absence of other specified parts of digestive tract; Z88.5 Allergy status to narcotic agent; Z88.2 Allergy status to sulfonamides
CPT/HCPCS: 99284; 96361; 94640; 96374; 71046; 71275; 80053; 84484; 85025; 85610; 93005; Q9967

== ENCOUNTER 2023-12-02 17:14 | Emergency (ER) | payer OTHER, SELFPAY ==
[2023-12-02] VITALS (10 sets, daily range): BP systolic 119–183; BP diastolic 68–114
[2023-12-02 17:47] LABS: % Basophils 0.2 % (0-2); % Eosinophils 0.8 % (0-6); % Immature Granulocytes 0.4 % (0-0.5); % Lymphocytes 11.3 % (20.5-51.1); % Monocytes 7.1 % (1.7-9.3); % Neutrophils 80.2 % (42.2-75.2); Absolute Eosinophils 0.1 10^3/uL (0-0.7); Absolute Lymphocytes 1.1 10^3/uL (1.2-3.4); Absolute Monocytes 0.7 10^3/uL (0.1-0.6); Absolute Neutrophils 7.8 10^3/uL (1.4-6.5); Hemoglobin 12.9 g/dL (12.0-16.0); Mean Corp Hgb Conc. 33.9 g/dL (33.0-37.0); Mean Corpuscular Hgb 29.3 pg (27.0-31.0); Mean Corpuscular Volume 86.4 fL (81.0-99.0); Mean Platelet Volume 9.5 fL (7.4-10.4); Nucleated Red Blood Cells % 0 %; Platelet Count 534 10^3/uL (130-400); Red Cell Dist. Width 13.1 % (11.5-14.5); White Blood Cell Count 9.7 10^3/uL (4.8-10.8)
[2023-12-02 17:58] LABS: ALT (SGPT) 15 U/L (0-35); AST (SGOT) 25 U/L (14-36); Albumin 4.1 g/dl (3.5-5.0); Alkaline Phosphatase 58 U/L (38-126); Blood Urea Nitrogen 18 mg/dl (7-17); Calcium 10.2 mg/dl (8.4-10.2); Carbon Dioxide 33 mmol/L (22-30); Chloride 97 mmol/L (98-107); Glucose 102 mg/dl (70-99); Potassium 3.4 mmol/L (3.5-5.1); Sodium 139 mmol/L (135-145); Total Bilirubin 0.3 mg/dl (0.2-1.3); Total Protein 6.9 g/dl (6.3-8.2); eGFR > 60.00
[2023-12-02 18:10] LABS: NT-proBNP 218 pg/ml; Troponin I < 0.012 ng/ml
--- NOTE | 2023-12-02 18:22 | ED.GENMED ---
History of Present Illness
General
Chief Complaint: Chest Pain
Source: patient
Exam Limitations: none
Time Seen by Provider: 12/02/23 17:42
Nursing documentation reviewed up to this point in time: agreed with
History of Present Illness
History of Present Illness:
63-year-old female presents emergency room complaining of intermittent left-sided chest pain for 1 week. It got worse this morning. She was seen in the ED on Tuesday and [facility], and at [place]. She was to have an
echocardiogram, at [facility], but did not want to wait.
Past History
Past History
ED Past Medical History: Other (sarcoidosis)
ED Past Surgical History: Cholecystectomy, and Other (Breast augmentation)
Social History
Tobacco: Non-smoker
Alcohol: Occasional
Drug: None
Personal:
Living: with family
Employment: Not employed
Review of Systems
Review of Systems
Allergies reviewed?: Yes
All Other Systems: Not applicable
Constitutional: Reports no symptoms; Denies fever
EENT: Reports no symptoms
Respiratory: Reports trouble breathing
Cardiac: Reports chest pain
ABD/GI: Reports no symptoms
: Reports no symptoms
Musculoskeletal: Reports no symptoms
Skin: Reports no symptoms
Neurological: Reports no symptoms
Endocrine: Reports no symptoms
Hematologic/Lymphatic: Reports no symptoms
Psychiatric: Reports no symptoms
Phy Exam
Physical Exam
Physical Exam:
Physical Exam
General: no apparent distress, not acutely ill
Neck: supple. no meningeal signs. normal posterior pharynx
Heart: s1/s2 tachycardia, no murmur. equal radial
pulses.
HEENT: Pupils equal round reactive to light, EOMI
Lungs: no acute respiratory distress. clear bilaterally
Abdomen: normal bowel sounds. not tender. no CVAT
Neuro: alert and oriented. no focal neurological deficits cranial nerves II through XII intact
Skin: no rash
Psychiatric: well kept. interactive and cooperative
Extremities: no edema. no calf tenderness. negative homans. good distal pulses
Scores
Heart Score for Chest Pain Patients
STEMI patient?: No
History: Slightly or Non-Suspicious
ECG: Normal
Age: >45 - <65 years
Risk Factors: No Risk Factors
Troponin: </= Normal Limit
Heart Score for Chest Pain Patients: 1
Heart Score Risk: 2.5% MACE over next 6 weeks
Course
Orders/Labs/Results
Orders:
Orders
12/02/23 17:19
EKG [Electrocardiogram (*1)] Urgent
Reason for Study: Chest Pain
EKG- Treatment ONCE
12/02/23 17:30
Complete Blood Count/With Diff Urgent
Comprehensive Metabolic Panel Urgent
NT-proBNP Urgent
Comment: ADD ON
Troponin I Urgent
12/02/23 17:43
Add On- LAB Urgent
Tests Added?: bnp
12/02/23 18:21
CR Chest - 2 Views Urgent
Comment:
Reason For Exam: short of breath
12/02/23 18:38
Ketorolac [Toradol] 15 mg IV NOW STA
Abnormal Lab Results
12/02/23
17:30
Plt Count 534 H 10^3/uL
(130-400)
Absolute Neuts (auto) 7.8 H 10^3/uL
(1.4-6.5)
Absolute Lymphs (auto) 1.1 L 10^3/uL
(1.2-3.4)
Absolute Monos (auto) 0.7 H 10^3/uL
(0.1-0.6)
Neutrophils % 80.2 H %
(42.2-75.2)
Lymphocytes % 11.3 L %
(20.5-51.1)
Potassium 3.4 L mmol/L
(3.5-5.1)
Chloride 97 L mmol/L
(98-107)
Carbon Dioxide 33 H mmol/L
(22-30)
BUN 18 H mg/dl
(7-17)
Glucose 102 H mg/dl
(70-99)
12/02/23 17:30
12/02/23 17:30
Vital Signs
Initial and Last Documented VS:
Initial Vital Signs
Temp Pulse Resp BP Pulse Ox
97.6 F 126 20 183/110 96
12/02/23 17:15 12/02/23 17:15 12/02/23 17:15 12/02/23 17:15 12/02/23 17:15
Last Documented Vital Signs
Temp Pulse Resp BP Pulse Ox
97.6 F 113 21 131/68 94
12/02/23 17:15 12/02/23 21:00 12/02/23 21:00 12/02/23 21:00 12/02/23 21:00
MDM/Problems Addressed
Differential Diagnosis Includes:
ACS, PE, aortic dissection, pneumonia
MDM/Problems Addressed:
63-year-old female with left-sided chest pain, unclear etiology. EKG with sinus tachycardia, no ischemia, normal troponin. Doubt ACS, PE or aortic dissection.
Chronic conditions affecting care: Other (Sarcoidosis)
Acute Exacerbation and/or Progression of Chronic Illness: Other (Sarcoidosis)
*Radiology
Radiology exam reviewed: radiology read reviewed (Chest x-ray no acute findings)
*Pulse Oximetry
Patient hypoxic: no
*EKG
Interpreted by ED Provider?: Yes
EKG Intrepretation Date: 12/02/23
EKG Intrepretation Time: 17:23
Interpretation: abnormal
Comparison EKG: no changes
Heart Rate: 121
Rate: tachycardiac
Rhythm: sinus tachycardia
[place]: normal axis
Interval: normal interval
QRS Pattern: normal QRS
Ischemia: no ischemia
*Contract Preparer Interpretation
Rate: tachycardiac
Interpretation: abnormal
Heart Rate: 112
Rhythm: sinus tachycardia
*Critical Care Note
Total Time (30-74mins, 75-104mins- exclusive of procedures): Not Applicable
Data Reviewed
Review of Other/Old Records Reveals: Records (CT from 11/28/2023 shows increased lung fibrosis, otherwise no acute changes)
Source: records (On patient's records from [place] reviewed on her phone.)
Further Testing Considered But Not Given:
CT chest not indicated
Patient Management
Social determinants of health affecting care: Living situation
Escalation/DeEscalation of care consider admission/obs:
Admit not indicated
ED Attending Note
-
Portions of this chart may have been created with voice recognition software.� Occasional wrong word or��sound alike� substitutions may have occurred due to the inherent limitations of voice recognition software.
Discharge Plan
Departure
Patient Disposition: Home (Routine Discharge)
Date of Disposition: 12/02/23
Time of Disposition: 21:12
Patient with high blood pressure during this ER visit?: Yes
Condition: Good
Discharge Problem:
Atypical chest pain, Sarcoidosis
Instructions: Chest Pain PCP Follow Up
Prescriptions:
No Action
bupropion HCl 150 MG tablet sustained-release 12 hr
150 mg PO DAILY@1400
Patient Comments:
07/25/2023: taken w/ 300mg = 450mg
ondansetron HCl 4 MG tablet
4 mg PO Q12H PRN (Reason: nausea)
albuterol sulfate [Ventolin HFA] 90 MCG/PUFF HFA aerosol inhaler
2 puff inhalation R Q6 PRN (Reason: sob/wheezing)
methotrexate sodium 2.5 mg tablet
7.5 mg PO ALANIZ
folic acid 1 mg tablet
1 mg PO DAILY@1400
omeprazole magnesium [Prilosec OTC] 20 mg Tablet,Delayed Release (Dr/Ec)
20 mg PO DAILY@1400
bupropion HCl 300 mg tablet extended release 24 hr
300 mg PO DAILY@1400
Patient Comments:
07/25/2023: taken w/ 150mg = 450mg
acetaminophen 325 mg Tablet
650 mg PO Q4HPRN PRN (Reason: mild pain/ROMERO/temp> 100.4F) Qty: 0 0RF
benzonatate 100 mg Capsule
200 mg PO BID Qty: 30 0RF
prednisone 10 mg Tablet
See Rx Instructions .ROUTE .COMPLEX Qty: 60 0RF
Rx Instructions:
Take By Mouth:
50 mg daily x4 days, 40 mg daily x4 days,
30 mg daily x4 days, 20 mg daily x4 days,
15 mg daily thereafter
amoxicillin-pot clavulanate 875-125 mg tablet
1 tab PO BID 7 Days Qty: 14 0RF
potassium chloride 20 mEq tablet extended release
20 meq PO DAILY Qty: 30 0RF
Referrals:
Stefany Toribio CRNP [Family Provider] - Call in 1-3 days for appt
Interventions
Interventions:
*Risk Screen - Suicide Last Done: 12/02/23 17:26
*General Assessment Last Done: 12/02/23 17:26
*Neglect/Abuse Screening Last Done: 12/02/23 17:26
ED- Fall Risk Assessment Last Done: 12/02/23 17:26
*ED COVID-19 Vaccine History Last Done: 12/02/23 17:26
*Nursing Disposition Last Done: 12/02/23 21:18
ED- Cardiac Assessment Last Done: 12/02/23 17:26
Discharge Date and Time
Discharge Date/Time: 12/02/23 21:19
Print Language: [id number]
[2023-12-02] MEDS: TORADOL 15 MG IV (18:41)
== END 2023-12-02 21:19 | disposition home or self-care (01) ==
LOC: EMR 17:14
PROVIDERS: EMERGENCY PHYSICIAN Emergency Medicine; FAMILY PHYSICIAN Nurse Practitioner
DX: R07.89 Other chest pain (principal); D86.9 Sarcoidosis, unspecified; R03.0 Elevated blood-pressure reading, without diagnosis of hypertension; R00.0 Tachycardia, unspecified; Z90.49 Acquired absence of other specified parts of digestive tract; Z88.5 Allergy status to narcotic agent; Z88.2 Allergy status to sulfonamides
CPT/HCPCS: 99284; 96374; 71046; 80053; 83880; 84484; 85025; 93005

== ENCOUNTER 2024-01-05 13:15 | Outpatient (RCR) | payer OTHER, SELFPAY | END 2024-01-09 10:03 | disposition home or self-care (01) | LOC: PURB 13:15 | PROVIDERS: ATTENDING PHYSICIAN Internal Medicine Critical Care Medicine; FAMILY PHYSICIAN Nurse Practitioner | DX: D86.9 Sarcoidosis, unspecified (principal) | CPT/HCPCS: G0237; G0239 ==

== ENCOUNTER → 2024-01-06 10:23 | Outpatient (REF) | payer OTHER, SELFPAY | LOC: RCS 10:23 | PROVIDERS: ATTENDING PHYSICIAN Internal Medicine Cardiovascular Disease; FAMILY PHYSICIAN Nurse Practitioner | DX: R00.0 Tachycardia, unspecified (principal) | CPT/HCPCS: 93225; 93226 ==

== ENCOUNTER 2024-01-11 11:32 | Emergency (ER) | payer OTHER, SELFPAY ==
--- NOTE | 2024-01-11 11:51 | ED.GENMED ---
History of Present Illness
<Sury Esposito PA-C - Last Filed: 01/11/24 14:13>
General
Chief Complaint: Chest Pain
Source: patient
Exam Limitations: none
Time Seen by Provider: 01/11/24 11:47
Nursing documentation reviewed up to this point in time: agreed with
History of Present Illness
History of Present Illness:
63 y/o female with PMH of sarcoidosis presents emergency department today with concerns of chest pain and acute on chronic shortness of breath. Patient reports that this started an hour ago when she was sitting on the couch today. Patient reports
that is not worse with exertion, is nonpleuritic. Patient reports that the pain worsens when she touches the area. Patient denies injury to the chest wall. Patient denies personal or family history of coronary artery disease. Patient has a
pulmonology specialist with [place] and now [place] sarcoidosis specialist. Patient takes daily prednisone as well as methotrexate for this. Patient also notes she has palpitations, however she has been worked up for this recently. She had a Holter
monitor done which revealed sinus tachycardia and noted that she did have symptoms of shortness of pain and palpitations associated with the tachycardia. Patient denies upper respiratory symptoms, new cough, sore throat or runny nose. Patient
denies any sick contacts. Patient denies any fevers or chills. 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 Patient states that she has a stress test scheduled for Tuesday at [facility].
Past History
<Sury Esposito PA-C - Last Filed: 01/11/24 14:13>
Past History
ED Past Medical History: Other (sarcoidosis)
ED Past Surgical History: Cholecystectomy, and Other (Breast augmentation)
Social History
Tobacco: Non-smoker
Alcohol: Occasional
Drug: None
Personal:
Living: with family
Employment: Not employed
Review of Systems
<Sury Esposito PA-C - Last Filed: 01/11/24 14:13>
Review of Systems
All Other Systems: ROS reviewed and negative except as documented in HPI and ROS
Phy Exam
<Sury Esposito PA-C - Last Filed: 01/11/24 14:13>
Physical Exam
Physical Exam:
General: Patient is well appearing and in no acute distress; non-toxic
Skin: Warm and dry, no rashes or lesions
Head: Normocephalic, atraumatic
Eyes: Sclera non-icteric. EOMs intact. PERRLA.
Cardiac: Tachycardia noted, regular rhythm, no murmur. Tenderness to palpation of the left external chest wall.
Peripheral Vascular: No lower extremity swelling or edema
Pulm: Normal respiratory effort, no wheezes, rales, rhonchi
Neuro: CN II-XII intact, no focal neurologic deficits.
Psychiatric: Appropriate mood and affect.
Scores
<Sury Esposito PA-C - Last Filed: 01/11/24 14:13>
Heart Score for Chest Pain Patients
STEMI patient?: No
History: Slightly or Non-Suspicious
ECG: Normal
Age: >45 - <65 years
Risk Factors: No Risk Factors
Troponin: </= Normal Limit
Heart Score for Chest Pain Patients: 1
Heart Score Risk: 2.5% MACE over next 6 weeks
Course
<Sury Esposito PA-C - Last Filed: 01/11/24 14:13>
Orders/Labs/Results
Orders:
Orders
01/11/24 11:33
ECG [Electrocardiogram (*1)] Urgent
Reason for Study: Chest Pain
EKG- Treatment ONCE
01/11/24 12:04
Cardiac Monitoring- Treatment ONCE
01/11/24 12:05
Vital Signs- Treatment ONCE
Frequency: Once
01/11/24 12:06
CR Chest - 2 Views Urgent
Comment:
Reason For Exam: left sided chest pain
01/11/24 12:13
Complete Blood Count/With Diff Urgent
Comprehensive Metabolic Panel Urgent
D-Dimer Urgent
Troponin I Urgent
01/11/24 12:33
0.9% Sodium Chloride 500 ml [Nss] 500 ml IV BOLUS
Abnormal Lab Results
01/11/24
12:13
WBC 11.9 H 10^3/uL
(4.8-10.8)
RBC 3.98 L 10^6/uL
(4.20-5.40)
Hct 35.7 L %
(37.0-47.0)
Plt Count 436 H 10^3/uL
(130-400)
Absolute Neuts (auto) 9.8 H 10^3/uL
(1.4-6.5)
Absolute Lymphs (auto) 0.8 L 10^3/uL
(1.2-3.4)
Absolute Monos (auto) 1.0 H 10^3/uL
(0.1-0.6)
Neutrophils % 83.0 H %
(42.2-75.2)
Lymphocytes % 7.1 L %
(20.5-51.1)
Potassium 3.4 L mmol/L
(3.5-5.1)
Chloride 97 L mmol/L
(98-107)
Carbon Dioxide 32 H mmol/L
(22-30)
01/11/24 12:13
01/11/24 12:13
Vital Signs
Initial and Last Documented VS:
Initial Vital Signs
Resp
22
01/11/24 12:00
Last Documented Vital Signs
Temp Pulse Resp BP Pulse Ox
97.9 F 104 22 156/90 98
01/11/24 12:19 01/11/24 13:30 01/11/24 13:30 01/11/24 13:00 01/11/24 13:30
<Di Dodd, DO - Last Filed: 01/11/24 13:03>
Orders/Labs/Results
Orders:
Orders
01/11/24 11:33
ECG [Electrocardiogram (*1)] Urgent
Reason for Study: Chest Pain
EKG- Treatment ONCE
01/11/24 12:04
Cardiac Monitoring- Treatment ONCE
01/11/24 12:05
Vital Signs- Treatment ONCE
Frequency: Once
01/11/24 12:06
CR Chest - 2 Views Urgent
Comment:
Reason For Exam: left sided chest pain
01/11/24 12:13
Complete Blood Count/With Diff Urgent
Comprehensive Metabolic Panel Urgent
D-Dimer Urgent
Troponin I Urgent
01/11/24 12:33
0.9% Sodium Chloride 500 ml [Nss] 500 ml IV BOLUS
Abnormal Lab Results
01/11/24
12:13
WBC 11.9 H 10^3/uL
(4.8-10.8)
RBC 3.98 L 10^6/uL
(4.20-5.40)
Hct 35.7 L %
(37.0-47.0)
Plt Count 436 H 10^3/uL
(130-400)
Absolute Neuts (auto) 9.8 H 10^3/uL
(1.4-6.5)
Absolute Lymphs (auto) 0.8 L 10^3/uL
(1.2-3.4)
Absolute Monos (auto) 1.0 H 10^3/uL
(0.1-0.6)
Neutrophils % 83.0 H %
(42.2-75.2)
Lymphocytes % 7.1 L %
(20.5-51.1)
Potassium 3.4 L mmol/L
(3.5-5.1)
Chloride 97 L mmol/L
(98-107)
Carbon Dioxide 32 H mmol/L
(22-30)
01/11/24 12:13
01/11/24 12:13
Vital Signs
Initial and Last Documented VS:
Initial Vital Signs
Resp
22
01/11/24 12:00
Last Documented Vital Signs
Temp Pulse Resp BP Pulse Ox
97.9 F 104 22 156/90 98
01/11/24 12:19 01/11/24 13:30 01/11/24 13:30 01/11/24 13:00 01/11/24 13:30
Davidlt;Sury Esposito PA-C - Last Filed: 01/11/24 14:13>
MDM/Problems Addressed
Differential Diagnosis Includes:
Differentials include costochondritis, ACS, pulmonary embolism, anxiety, pneumothorax, musculoskeletal sprain
MDM/Problems Addressed:
63-year-old female history of sarcoidosis with chronic shortness of breath presents emergency department today with concerns of chest pain and worsening shortness of breath. She feels that on the left side of her chest. Is atypical. Started by
hour ago. Also feels palpitations, had workup for this with halter monitor and was revealed to have a sinus tachycardia. Patient presents to the emergency department acutely tachycardic, 123 however she is well-appearing on exam, she has no
murmurs, her lungs are clear, she has no redness or swelling of the lower extremities. In emergency department, her CBC and CMP unremarkable, her D-dimer was within normal limits. Her troponin is undetectable. Her chest x-ray shows stable changes
associated with sarcoidosis. While patient does have tachycardia, doubt PE, this is an ongoing problem with the tachycardia and being worked up. She does take prednisone. Doubt ACS, patient has had multiple episodes of chest pain recently and has
a follow-up stress test in 2 days. Suspect symptoms likely either costochondritis or related to her sarcoidosis. Patient stable for discharge.
Chronic conditions affecting care:
Sarcoidosis
<Sury Esposito PA-C - Last Filed: 01/11/24 14:13>
*Pulse Oximetry
Patient hypoxic: no
*EKG
Interpreted by ED Provider?: Yes
EKG Intrepretation Date: 01/11/24
Interpretation: abnormal
Comparison EKG: no changes
Heart Rate: 123
Rate: tachycardiac
Rhythm: sinus
[place]: normal axis
QRS Pattern: normal QRS
Ischemia: no ischemia
*Airplane Pilot Photogrammetry Interpretation
Rate: tachycardiac
Heart Rate: 104
Rhythm: sinus
*Critical Care Note
Total Time (30-74mins, 75-104mins- exclusive of procedures): Not Applicable
Data Reviewed
Review of Other/Old Records Reveals: Records (Reviewed ER physician documentation from 12/02/2023, patient seen for chest pain, patient also seen for chest pain on 11/23/2023, but at times workups were unremarkable) and Testing (Reviewed Holter
monitor report)
Source: patient and records
Prescriptions/Medications Considered But Not Given:
Considered beta-page for tachycardia however patient has follow-up with cardiology soon
<Sury Esposito PA-C - Last Filed: 01/11/24 14:13>
Patient Management
Escalation/DeEscalation of care consider admission/obs:
Admit not indicated, patient stable for discharge.
ED Attending Note
<Sury Esposito PA-C - Last Filed: 01/11/24 14:13>
-
Portions of this chart may have been created with voice recognition software.� Occasional wrong word or��sound alike� substitutions may have occurred due to the inherent limitations of voice recognition software.
<Di Dodd DO - Last Filed: 01/11/24 13:03>
ED Attending Note
Patient seen and examined by attending physician: Yes
I performed the substantive portion of visit, reviewed & personally made and approve the management plan that is documented in note by myself or VIPUL.: Yes
I performed a history and physical exam of patient and discussed management with resident, I reviewed resident's note and agree with documented findings and plan of care.: Yes
ED Attending Note:
63-year-old female with history of sarcoidosis presenting to the emergency department for chest pain. Patient reports about 2 hours ago, started to have left-sided chest pain, nonexertional. Pain is in the mid axillary region of her chest, mild
pain with deep inspiration. Notes that she has had this pain in the past, recently had a Holter monitor that was read 01/02, negative for acute abnormality, tachycardia. From a sarcoidosis standpoint, patient is on prednisone daily, has chronic
dyspnea and was recently put on O2 as needed. Denies known cardiac disease, is scheduled to get a stress test in 2 days. Per her transport analyst, also recommending an MRI of her heart to ensure that her sarcoid is not traveling to her heart. Vital
signs on arrival significant for tachycardia.
On exam, patient is well-appearing, no acute distress, is very anxious. Unremarkable cardiac and pulmonary exam with the exception of tachycardia. Reproducible tenderness to the left chest wall, no crepitus. EKG obtained, sinus tachycardia.
Suspect possible anxiety component versus sarcoid component. Lower suspicion for CAD. Will screen with laboratory analysis including troponin. Will also screen with D-dimer given presenting tachycardia. Assuming unremarkable workup, plan will be
for outpatient cardiology follow-up for stress testing in 2 days.
Discharge Plan
Departure
Patient Disposition: Home (Routine Discharge)
Date of Disposition: 01/11/24
Time of Disposition: 13:34
Patient with high blood pressure during this ER visit?: Yes
Condition: Good
Discharge Problem:
Left-sided chest pain
Instructions: Chest pain, BLOOD PRESSURE
Prescriptions:
No Action
bupropion HCl 150 MG tablet sustained-release 12 hr
150 mg PO DAILY@1400
Patient Comments:
07/25/2023: taken w/ 300mg = 450mg
ondansetron HCl 4 MG tablet
4 mg PO Q12H PRN (Reason: nausea)
albuterol sulfate [Ventolin HFA] 90 MCG/PUFF HFA aerosol inhaler
2 puff inhalation R Q6 PRN (Reason: sob/wheezing)
methotrexate sodium 2.5 mg tablet
7.5 mg PO ALANIZ
folic acid 1 mg tablet
1 mg PO DAILY@1400
omeprazole magnesium [Prilosec OTC] 20 mg Tablet,Delayed Release (Dr/Ec)
20 mg PO DAILY@1400
bupropion HCl 300 mg tablet extended release 24 hr
300 mg PO DAILY@1400
Patient Comments:
07/25/2023: taken w/ 150mg = 450mg
acetaminophen 325 mg Tablet
650 mg PO Q4HPRN PRN (Reason: mild pain/ROMERO/temp> 100.4F) Qty: 0 0RF
benzonatate 100 mg Capsule
200 mg PO BID Qty: 30 0RF
prednisone 10 mg Tablet
See Rx Instructions .ROUTE .COMPLEX Qty: 60 0RF
Rx Instructions:
Take By Mouth:
50 mg daily x4 days, 40 mg daily x4 days,
30 mg daily x4 days, 20 mg daily x4 days,
15 mg daily thereafter
amoxicillin-pot clavulanate 875-125 mg tablet
1 tab PO BID 7 Days Qty: 14 0RF
potassium chloride 20 mEq tablet extended release
20 meq PO DAILY Qty: 30 0RF
Referrals:
Latrice Pearce DO [Family Provider] -
Activity Restrictions/Additional Instructions:
Please follow-up with your transport analyst. Please follow-up with your scheduled stress test in 2 days.
Please return for any new or worsening symptoms.
Interventions
Interventions:
*Risk Screen - Suicide Last Done: 01/11/24 11:45
*General Assessment Last Done: 01/11/24 11:45
*Neglect/Abuse Screening Last Done: 01/11/24 11:45
ED- Fall Risk Assessment Last Done: 01/11/24 12:20
*ED COVID-19 Vaccine History Last Done: 01/11/24 12:20
*Nursing Disposition Last Done: 01/11/24 13:41
ED- Cardiac Assessment Last Done: 01/11/24 12:20
Discharge Date and Time
Discharge Date/Time: 01/11/24 13:41
Print Language: LITHUANIAN
[2024-01-11 12:19] VITALS: BP 134/98
[2024-01-11 12:30] VITALS: BP 156/78
[2024-01-11] MEDS: NSS 500 IV (12:35)
[2024-01-11 12:39] LABS: % Basophils 0.2 % (0-2); % Immature Granulocytes 0.3 % (0-0.5); % Lymphocytes 7.1 % (20.5-51.1); % Monocytes 8.4 % (1.7-9.3); Absolute Eosinophils 0.1 10^3/uL (0-0.7); Absolute Lymphocytes 0.8 10^3/uL (1.2-3.4); Absolute Neutrophils 9.8 10^3/uL (1.4-6.5); Hematocrit 35.7 % (37.0-47.0); Hemoglobin 12.1 g/dL (12.0-16.0); Mean Corp Hgb Conc. 33.9 g/dL (33.0-37.0); Mean Corpuscular Hgb 30.4 pg (27.0-31.0); Mean Corpuscular Volume 89.7 fL (81.0-99.0); Mean Platelet Volume 9.9 fL (7.4-10.4); Nucleated Red Blood Cells % 0 %; Platelet Count 436 10^3/uL (130-400); Red Blood Cell Count 3.98 10^6/uL (4.20-5.40); Red Cell Dist. Width 14.4 % (11.5-14.5); White Blood Cell Count 11.9 10^3/uL (4.8-10.8)
[2024-01-11 12:50] LABS: D-Dimer 0.37 ug/mlFEU (0.00-0.50)
[2024-01-11 12:57] LABS: ALT (SGPT) 18 U/L (0-35); AST (SGOT) 26 U/L (14-36); Alkaline Phosphatase 61 U/L (38-126); Blood Urea Nitrogen 15 mg/dl (7-17); Calcium 9.7 mg/dl (8.4-10.2); Carbon Dioxide 32 mmol/L (22-30); Chloride 97 mmol/L (98-107); Glucose 75 mg/dl (70-99); Potassium 3.4 mmol/L (3.5-5.1); Sodium 138 mmol/L (135-145); Total Bilirubin 0.4 mg/dl (0.2-1.3); Total Protein 6.7 g/dl (6.3-8.2); eGFR > 60.00
[2024-01-11 13:00] VITALS: BP 156/90
[2024-01-11 13:06] LABS: Troponin I < 0.012 ng/ml
== END 2024-01-11 13:41 | disposition home or self-care (01) ==
LOC: EMR 11:32
PROVIDERS: Physician Assistant; EMERGENCY PHYSICIAN Student in an Organized Health Care Education/Training Program; FAMILY PHYSICIAN Internal Medicine
DX: R07.89 Other chest pain (principal); R06.02 Shortness of breath; R00.0 Tachycardia, unspecified; D86.9 Sarcoidosis, unspecified; I10 Essential (primary) hypertension; F41.9 Anxiety disorder, unspecified; Z87.01 Personal history of pneumonia (recurrent); Z79.631 Long term (current) use of antimetabolite agent; Z79.899 Other long term (current) drug therapy; Z90.49 Acquired absence of other specified parts of digestive tract; Z88.5 Allergy status to narcotic agent; Z88.2 Allergy status to sulfonamides
CPT/HCPCS: 99285; 96360; 71046; 80053; 84484; 85025; 85379; 93005

== ENCOUNTER → 2024-01-13 11:03 | Outpatient (REF) | payer OTHER, SELFPAY | LOC: DHCBC/DCA 11:03 | PROVIDERS: ATTENDING PHYSICIAN Internal Medicine Cardiovascular Disease; FAMILY PHYSICIAN Nurse Practitioner | DX: R07.89 Other chest pain (principal); R06.09 Other forms of dyspnea; I70.0 Atherosclerosis of aorta | CPT/HCPCS: 78452; 93017; A9500; J2785 ==

== ENCOUNTER 2024-01-24 12:00 | Day surgery (SDC) | payer OTHER, SELFPAY ==
[2024-01-24 13:15] VITALS: BMI 17.2
[2024-01-24 13:20] VITALS: BP 165/109
[2024-01-24 13:46] VITALS: BMI 17.2
[2024-01-24 14:52] VITALS: BP 132/87; BP 136/86
[2024-01-24 15:00] VITALS: BP 140/92
== END 2024-01-24 15:35 | disposition home or self-care (01) ==
LOC: GI 12:00
PROVIDERS: ATTENDING PHYSICIAN Internal Medicine
DX: R13.10 Dysphagia, unspecified (principal); R12 Heartburn; K22.2 Esophageal obstruction; K31.89 Other diseases of stomach and duodenum; K31.7 Polyp of stomach and duodenum
CPT/HCPCS: 43239; 88305; 88342

== ENCOUNTER → 2024-01-31 10:44 | Outpatient (REF) | payer OTHER, SELFPAY | LOC: PET 10:44 | PROVIDERS: ATTENDING PHYSICIAN Internal Medicine Cardiovascular Disease | DX: D86.9 Sarcoidosis, unspecified (principal); R06.09 Other forms of dyspnea; R00.0 Tachycardia, unspecified | CPT/HCPCS: 78431; A9555; J2785 ==

== ENCOUNTER → 2024-02-08 13:39 | Outpatient (REF) | payer OTHER, SELFPAY | LOC: HWRCS 13:39 | PROVIDERS: ATTENDING PHYSICIAN Internal Medicine Cardiovascular Disease; FAMILY PHYSICIAN Internal Medicine | DX: D86.9 Sarcoidosis, unspecified (principal); R06.09 Other forms of dyspnea; R00.0 Tachycardia, unspecified | CPT/HCPCS: 93308 ==

== ENCOUNTER 2024-02-09 13:15 | Outpatient (RCR) | payer OTHER, SELFPAY | END 2024-02-09 15:00 | disposition home or self-care (01) | LOC: PURB 13:15 | PROVIDERS: ATTENDING PHYSICIAN Internal Medicine Critical Care Medicine; FAMILY PHYSICIAN Nurse Practitioner | DX: D86.9 Sarcoidosis, unspecified (principal) | CPT/HCPCS: G0239 ==

== ENCOUNTER → 2024-03-05 12:01 | Outpatient (REF) | payer OTHER, SELFPAY | LOC: HWWDC 12:01 | PROVIDERS: ATTENDING PHYSICIAN Internal Medicine | DX: Z12.31 Encounter for screening mammogram for malignant neoplasm of breast (principal) | CPT/HCPCS: 77063; 77067 ==

== ENCOUNTER 2024-03-06 13:15 | Outpatient (RCR) | payer OTHER, SELFPAY | END 2024-03-10 23:59 | disposition home or self-care (01) | LOC: PURB 13:15 | PROVIDERS: ATTENDING PHYSICIAN Internal Medicine Critical Care Medicine; FAMILY PHYSICIAN Nurse Practitioner | DX: D86.9 Sarcoidosis, unspecified (principal) | CPT/HCPCS: G0239 ==

== ENCOUNTER 2024-03-27 13:15 | Outpatient (RCR) | payer OTHER, SELFPAY | END 2024-03-27 23:59 | disposition home or self-care (01) | LOC: PURB 13:15 | PROVIDERS: ATTENDING PHYSICIAN Internal Medicine Critical Care Medicine; FAMILY PHYSICIAN Nurse Practitioner | DX: D86.9 Sarcoidosis, unspecified (principal) | CPT/HCPCS: G0239 ==

== ENCOUNTER 2024-04-05 10:59 | Day surgery (SDC) | payer OTHER, SELFPAY ==
[2024-04-05] VITALS (15 sets, daily range): BP systolic 114–158; BP diastolic 58–96; BMI 17.4
--- NOTE | 2024-04-05 16:50 | ITS.CL.CATH ---
Back Feeder [facility] Layup Line - Catheterization
Cardiac Catheterization
Procedure Report:
CARDIAC CATHETERIZATION REPORT
Date of Procedure: 04/05/2024
Referring: Dr. Ye Arenas MD
Indication: lung transplant evaluation
PROCEDURE(S)
1. right heart catheterization
2. left heart catheterization
3. coronary angiography
ACCESS
1. 6F right radial artery (closure: radial band)
2. 5F right antecubital vein (closure: manual hemostasis)
CATHETERS
1. 5F Blackwell-Ishmael
2. 6F JL3.5
3. 6F JR4
HEMODYNAMIC DATA
LV 142/5 (EDP 8) mmHg
AO 139/82 (mean 101) mmHg
RA 3 mmHg
RV 31/0 (EDP 7) mmHg
PA 24/14 (mean 18) mmHg
PCWP 7 mmHg
SaO2 98.8%
SvO2 77.3%
Hb 12.7 g/dL
CO/CI 4.59/3.37 L/min/m2
SVR 1705 dsc*-5
PVR 2.4 Wood units
CORONARY ANGIOGRAPHY
Dominance: right
LM: large and normal
LAD: large vessel giving rise to a moderate caliber D1 and small D2. There are trivial luminal irregularities and no obstructive coronary artery disease.
LCx: Moderate caliber vessel giving rise to a medium-sized OM1 and medium-sized OM2. There are trivial luminal irregularities and no obstructive coronary artery disease.
RCA: Large vessel giving rise to a medium caliber RPDA and several small RPL branches. There is no coronary artery disease.
RADIATION: dose 61.7 mGy; DAP 4.7 Gy*cm2; fluoroscopy time 5.9 min
CONCLUSIONS
1. normal biventricular filling pressures, normal pulmonary artery pressure with mildly elevated PVR, and normal cardiac output and index.
2. nonobstructive coronary artery disease in a right dominant system with trivial luminal irregularities only.
3. no aortic stenosis on pullback
RECOMMENDATIONS
1. expectant management after cardiac catheterization via right radial approach
2. primary prevention of coronary artery disease
3. proceed with evaluation for lung transplantation
Copy to: Dr. Ye Arenas MD (box attacher); Dr. Mor Lee MD ([place] lung transplant); Dr. Latrice Pearce DO (PCP)
Signed: Joshua Butts MD, PhD
== END 2024-04-05 17:15 | disposition home or self-care (01) ==
LOC: CATH 10:59
PROVIDERS: ATTENDING PHYSICIAN Student in an Organized Health Care Education/Training Program; FAMILY PHYSICIAN Internal Medicine; OTHER PHYSICIAN Internal Medicine Cardiovascular Disease
DX: Z01.818 Encounter for other preprocedural examination (principal); I25.10 Atherosclerotic heart disease of native coronary artery without angina pectoris; Z87.891 Personal history of nicotine dependence; Z79.899 Other long term (current) drug therapy; Z79.52 Long term (current) use of systemic steroids; I50.9 Heart failure, unspecified
CPT/HCPCS: 93460; C1769; C1894; Q9967

== ENCOUNTER → 2024-04-06 13:10 | Outpatient (REF) | payer OTHER, SELFPAY | LOC: PAVMRI 13:10 | PROVIDERS: ATTENDING PHYSICIAN Psychiatry & Neurology Neurology; FAMILY PHYSICIAN Internal Medicine | DX: R20.0 Anesthesia of skin (principal); R20.2 Paresthesia of skin; D86.9 Sarcoidosis, unspecified; G37.9 Demyelinating disease of central nervous system, unspecified | CPT/HCPCS: 70553; 72156; A9575 ==

== ENCOUNTER → 2024-04-26 11:53 | Outpatient (REF) | payer OTHER, SELFPAY ==
[2024-04-26 12:34] LABS: Hematocrit 42.3 % (37.0-47.0); Mean Corp Hgb Conc. 33.1 g/dL (33.0-37.0); Mean Corpuscular Hgb 30.7 pg (27.0-31.0); Mean Corpuscular Volume 92.8 fL (81.0-99.0); Mean Platelet Volume 10.9 fL (7.4-10.4); Platelet Count 340 10^3/uL (130-400); Red Blood Cell Count 4.56 10^6/uL (4.20-5.40); Red Cell Dist. Width 14.4 % (11.5-14.5); White Blood Cell Count 14.7 10^3/uL (4.8-10.8)
[2024-04-26 12:51] LABS: INR 0.86; PT 12.2 Sec (11.4-14.6)
[2024-04-26 14:40] VITALS: BP 145/70
[2024-04-26 15:31] LABS: CSF Clarity Clear; CSF Color Colorless; CSF Tube # 3; White Cell Count/CSF 0 mm^3 (0-5)
[2024-04-26 15:32] LABS: Red Cell Count/CSF 12 mm^3
[2024-04-26 16:11] LABS: Spinal Fluid Glucose 57 mg/dl (40-70); Spinal Fluid Protein 84 mg/dl (12-60)
== END ==
LOC: RADI 11:53
PROVIDERS: ATTENDING PHYSICIAN Psychiatry & Neurology Neurology; FAMILY PHYSICIAN Internal Medicine; REFERRING PHYSICIAN Physician Assistant
DX: G62.9 Polyneuropathy, unspecified (principal); R90.89 Other abnormal findings on diagnostic imaging of central nervous system
CPT/HCPCS: 36415; 62328; 82040; 82042; 82784; 82945; 83873; 83916; 84157; 85027; 85610; 86592; 87015; 87070; 87205; 89051

== ENCOUNTER → 2024-05-08 08:30 | Outpatient (REF) | payer OTHER, SELFPAY | LOC: PAVMRI 08:30 | PROVIDERS: ATTENDING PHYSICIAN Internal Medicine Pulmonary Disease; FAMILY PHYSICIAN Internal Medicine | DX: D86.9 Sarcoidosis, unspecified (principal); J84.10 Pulmonary fibrosis, unspecified; J96.11 Chronic respiratory failure with hypoxia; I27.20 Pulmonary hypertension, unspecified; R06.02 Shortness of breath; Z79.899 Other long term (current) drug therapy | CPT/HCPCS: 75561; 75565; A9575 ==

== ENCOUNTER → 2024-05-22 08:10 | Outpatient (REF) | payer OTHER, SELFPAY | LOC: PAVMRI 08:10 | PROVIDERS: ATTENDING PHYSICIAN Psychiatry & Neurology Neurology; FAMILY PHYSICIAN Internal Medicine | DX: G37.9 Demyelinating disease of central nervous system, unspecified (principal) | CPT/HCPCS: 72157; A9575 ==

== ENCOUNTER 2024-06-11 08:13 | Emergency (ER) | payer OTHER, SELFPAY ==
[2024-06-11 08:18] VITALS: BP 149/83
--- NOTE | 2024-06-11 08:21 | ED.GENMED ---
History of Present Illness
General
Chief Complaint: Breathing Problem
Time Seen by Provider: 06/11/24 08:21
History of Present Illness
History of Present Illness:
TIME OF INITIAL ENCOUNTER: 8:20 AM
HPI: The patient has a history of sarcoidosis. She comes in because of shortness of breath worsening over the last 48 hours. She was recently admitted to [facility] and was told she has pneumonia currently on Augmentin 500/125 twice daily. Her
symptoms seem to have worsened after she was bronched last week.
EXAM:
GENERAL: The patient is in moderate to severe respiratory distress and she appears generally weak and debilitated
HEENT: Moist oral mucosa
CARDIOVASCULAR: No murmurs, tachycardic heart rate, regular rhythm, No chest wall tenderness
PULMONARY: Moderate to severe respiratory distress, rales more so on the right, increased work of breathing
ABDOMEN: Soft with no peritoneal signs, no tenderness
NEUROLOGIC: Equally decreased strength all extremities, no coordination deficits
PSYCHIATRIC: Appropriate mental status, normal insight and judgement
EXTREMITIES: Nontender, no edema, moves all extremities equally
SKIN: No rash, no lesions
NUMBER AND COMPLEXITY OF PROBLEMS ADDRESSED AT THE ENCOUNTER
� Chronic conditions affecting care: Sarcoidosis, anxiety
� Acute Exacerbation and/or Progression of Chronic Illness: Likely acute exacerbation of sarcoidosis
� Differential Diagnosis includes: Sarcoidosis flare, PE unlikely as sarcoidosis is much more likely diagnosis, anxiety
AMOUNT AND/OR COMPLEXITY OF DATA TO BE REVIEWED AND ANALYZED
� I performed an independent evaluation of and my interpretation is:
EKG: Sinus 138, normal axis, nonspecific ST abnormality likely rate related
CT:
X-rays: Chest x-ray consistent with known sarcoidosis cannot exclude underlying infiltrate
Laboratory Studies: White count 14.1, 89% neutrophils, initial lactic 2.5 repeat was 1.1, multiple attempts at obtaining further chemistries unsuccessful
Other:
� Review of other/old records: I reviewed records. The patient was seen by Dr. [facility] 03/13/2024. Heart cath from 04/05/2024 showed nonobstructive CAD. I reviewed old records, the patient was admitted here in
July 2023. At that time she was found to have sats in the 60s to 80%. Chest x-ray was consistent with sarcoidosis and was placed on IV steroids. She was also tachycardic at that time.
� Clinical information was obtained by an independent historian: I spoke to at bedside
� Prescriptions/Medications Considered but not given:
� Further testing considered but not performed: Considered CT however the patient reports having a [facility] chest at [facility] just last week
RISK OF COMPLICATIONS AND/OR MORBIDITY OR MORTALITY OF PATIENT MANAGEMENT
� Social determinants of health affecting care: Lives at home, uses 2 LPM nasal cannula with exertion
� Discussion with other providers: 9:40 AM: I called [facility] transfer center and I spoke to Dr. Koenig who accepts to ICU
� Escalation of care including admission/observation vs risk of discharge considered: The patient was placed on mid flow and overall is improving on reassessment.
ANY OTHER UPDATES:
9:15 AM: I reassessed patient, markedly improved on high flow oxygen, sats 100%; however patient is on 55 L/min with FiO2 90%. Dr. Koenig accepts ICU. I am told by [facility] that the patient grew Pseudomonas from last bronc�adding cefepime and will
also add vancomycin
11 AM: Patient feels subjectively more short of breath�she request neb�ordered DuoNeb
12 PM: The patient is reportedly unable to be transferred on high flow. We have trialed her on nasal cannula with nonrebreather and sats remain around 97%. She will go down to [facility] on that.
Past History
Past History
ED Past Medical History: Other (sarcoidosis)
ED Past Surgical History: Cholecystectomy, and Other (Breast augmentation)
Social History
Tobacco: Non-smoker
Alcohol: Occasional
Drug: None
Personal:
Living: with family
Employment: Not employed
Phy Exam
Physical Exam
Physical Exam:
See HPI
Scores
Heart Failure Risk
Heart Failure Risk Score: Not Applicable
Course
Orders/Labs/Results
Orders:
Orders
06/11/24 08:25
ECG [Electrocardiogram (*1)] Urgent
Reason for Study: Shortness of Breath
CR Chest Portable - 1 View Urgent
Comment:
Reason For Exam: shortness of breath, cough
Reason Study Needs to be Portable: Patient Unstable
06/11/24 08:26
EKG- Treatment ONCE
06/11/24 08:36
Dexamethasone Sod Phosphate [Decadron] 10 mg IV NOW STA
06/11/24 08:42
COVID-19 Antigen Urgent
Source: Nasal Swab
Complete Blood Count/With Diff Urgent
Lactic Acid Q4H
Comment: CANCEL 2nd LACTIC ACID IF 1st LACTIC ACID IS LESS THAN 2
Blood Culture Q30M
CLARI Source: Blood/Venous
Specimen Description:
Influenza A+B Rapid Molecular Urgent
CLARI Source: Nasal Swab
Specimen Description:
06/11/24 08:48
ABG [Arterial Blood Gas] Urgent
%Oxygen/Room Air: 6lpm
Blood Culture Q30M
CLARI Source: Blood/Venous
Specimen Description:
06/11/24 09:31
Cefepime HCl [Maxipime] 1,000 mg IV NOW STA
06/11/24 09:33
Vancomycin 1 Gram/200 ml [Vancocin] 1 gram in 200 ml IV NOW
06/11/24 09:45
Sterile Water [Sterile Water For Injection] 10 ml .ROUTE .STK-MED ONE
06/11/24 11:06
Ipratropium/Albuterol Sulfate [Duoneb] 3 ml INH R NOW STA
06/11/24 11:09
Lactic Acid Q4H
Comment: CANCEL 2nd LACTIC ACID IF 1st LACTIC ACID IS LESS THAN 2
06/11/24 11:43
Comprehensive Metabolic Panel Urgent
Abnormal Lab Results
06/11/24 06/11/24 06/11/24
08:42 08:48 12:02
WBC 14.1 H 10^3/uL
(4.8-10.8)
MCHC 32.6 L g/dL
(33.0-37.0)
Plt Count 421 H 10^3/uL
(130-400)
MPV 10.7 H fL
(7.4-10.4)
Abs Immat Gran (auto) 0.1 H 10^3/uL
(0-0.05)
Absolute Neuts (auto) 12.6 H 10^3/uL
(1.4-6.5)
Absolute Lymphs (auto) 0.6 L 10^3/uL
(1.2-3.4)
Absolute Monos (auto) 0.8 H 10^3/uL
(0.1-0.6)
Neutrophils % 89.4 H %
(42.2-75.2)
Lymphocytes % 4.2 L %
(20.5-51.1)
pH 7.56 H
(7.35-7.45)
pCO2 47 H mmHg
(32-35)
pO2 168 H mmHg
(83-108)
HCO3 42.1 H* mmol/L
(21-28)
ABG O2 Sat (Measured) 99.9 H %
(94-98)
Lactic Acid 2.5 H mmol/L
(0.7-2.0)
POC Glucose 148 H mg/dl
(70-99)
06/11/24 08:42
Vital Signs
Initial and Last Documented VS:
Initial Vital Signs
Temp Pulse Resp BP Pulse Ox
36.8 C 99 16 149/83 84
06/11/24 08:18 06/11/24 08:18 06/11/24 08:18 06/11/24 08:18 06/11/24 08:18
Last Documented Vital Signs
Temp Pulse Resp BP Pulse Ox
36.8 C 126 23 161/85 100
06/11/24 08:18 06/11/24 10:00 06/11/24 10:00 06/11/24 10:00 06/11/24 10:00
*Critical Care Note
Total Time (30-74mins, 75-104mins- exclusive of procedures): 45min
comment:
The patient arrives with markedly increased work of breathing overall significant improved on high flow oxygen. I discussed case with [facility] emergently. Plan is for her to be transferred to [facility] emergently. They are unable to transfer her on
high flow and we did trial her on nasal cannula plus nonrebreather and she remained with sats of about 97%. Suspect exacerbation of sarcoidosis.
ED Attending Note
-
Portions of this chart may have been created with voice recognition software.� Occasional wrong word or��sound alike� substitutions may have occurred due to the inherent limitations of voice recognition software.
Discharge Plan
Departure
Patient Disposition: Acute Care Hospital
Date of Disposition: 06/11/24
Time of Disposition: 09:46
Discharge Problem:
Sarcoidosis of lung
Prescriptions:
No Action
bupropion HCl 150 MG tablet sustained-release 12 hr
150 mg PO DAILY@1400
Patient Comments:
07/25/2023: taken w/ 300mg = 450mg
ondansetron HCl 4 MG tablet
4 mg PO Q12H PRN (Reason: nausea)
albuterol sulfate [Ventolin HFA] 90 MCG/PUFF HFA aerosol inhaler
2 puff inhalation R Q6 PRN (Reason: sob/wheezing)
methotrexate sodium 2.5 mg tablet
20 mg PO ALANIZ
folic acid 1 mg tablet
2 mg PO DAILY@1400
Patient Comments:
mg
bupropion HCl 300 mg tablet extended release 24 hr
300 mg PO DAILY@1400
Patient Comments:
07/25/2023: taken w/ 150mg = 450mg
acetaminophen 325 mg tablet
1,000 mg PO Q8H PRN (Reason: base of lungs)
prednisone 10 mg tablet
15 mg PO DAILY
alprazolam [Xanax] 0.25 mg Tablet
0.25 mg PO TID PRN (Reason: anxiety)
atovaquone 750 mg/5 mL Suspension
1,500 mg PO DAILY
amlodipine 2.5 mg Tablet
2.5 mg PO DAILY
famotidine [Pepcid] 20 mg Tablet
20 mg PO DAILY
mirtazapine 15 mg Tablet
15 mg PO DAILY
fluticasone propion-salmeterol [Advair HFA] 115-21 mcg/actuation Hfa Aerosol Inhaler
2 puff INHALATION Q12H
Referrals:
Latrice Peacre DO [Family Provider] -
Hospital Transfer
Other hospital: [facility]
I certify that the patient requires transfer: Yes
Discussed case with accepting physician: Dr. Koenig, tunnel man at [facility]
Reason for transfer: higher level of care, medical necessity, availability of service and specialties available
Interventions
Interventions:
*Risk Screen - Suicide Last Done: 06/11/24 08:18
*Neglect/Abuse Screening Last Done: 06/11/24 08:18
ED- Fall Risk Assessment Last Done: 06/11/24 09:07
ED- Cardiac Assessment Last Done: 06/11/24 09:07
ED- Pulmonary Assessment Last Done: 06/11/24 09:07
Discharge Date and Time
Print Language: SETSWANA
[2024-06-11] MEDS: DECADRON 10 MG IV (08:49)
[2024-06-11 08:53] LABS: % Basophils 0.1 % (0-2); % Immature Granulocytes 0.4 % (0-0.5); % Lymphocytes 4.2 % (20.5-51.1); % Monocytes 5.9 % (1.7-9.3); % Neutrophils 89.4 % (42.2-75.2); Absolute Immature Granulocytes 0.1 10^3/uL (0-0.05); Absolute Lymphocytes 0.6 10^3/uL (1.2-3.4); Absolute Monocytes 0.8 10^3/uL (0.1-0.6); Absolute Neutrophils 12.6 10^3/uL (1.4-6.5); Hematocrit 42.9 % (37.0-47.0); Mean Corp Hgb Conc. 32.6 g/dL (33.0-37.0); Mean Corpuscular Hgb 30.7 pg (27.0-31.0); Mean Corpuscular Volume 94.1 fL (81.0-99.0); Mean Platelet Volume 10.7 fL (7.4-10.4); Nucleated Red Blood Cells % 0 %; Platelet Count 421 10^3/uL (130-400); Red Blood Cell Count 4.56 10^6/uL (4.20-5.40); White Blood Cell Count 14.1 10^3/uL (4.8-10.8)
[2024-06-11 09:04] LABS: Lactic Acid 2.5 mmol/L (0.7-2.0)
[2024-06-11 09:11] LABS: B.E. 17.6 mmol/L; O2 Saturation % 99.9 % (94-98); PCO2 47 mmHg (32-35); PO2 168 mmHg (83-108); pH 7.56 (7.35-7.45)
[2024-06-11 09:15] LABS: HCO3 42.1 mmol/L (21-28)
[2024-06-11 09:22] VITALS: BP 151/88
[2024-06-11 09:42] LABS: COVID-19 Antigen Negative (Negative)
[2024-06-11] MEDS: MAXIPIME 1000 MG IV (09:46)
[2024-06-11 10:00] VITALS: BP 161/85
[2024-06-11] MEDS: VANCOCIN 200 IV (10:24)
[2024-06-11 11:00] VITALS: BP 141/80
[2024-06-11] MEDS: DUONEB 3 ML INH (11:12)
[2024-06-11 11:49] LABS: Lactic Acid 1.1 mmol/L (0.7-2.0)
[2024-06-11 12:00] VITALS: BP 136/86
[2024-06-11 12:03] LABS: Glucose - Point of Care 148 mg/dl (70-99)
== END 2024-06-11 14:28 | disposition short-term general hospital (02) ==
LOC: EMR 08:13
PROVIDERS: EMERGENCY PHYSICIAN Emergency Medicine; FAMILY PHYSICIAN Internal Medicine
DX: D86.0 Sarcoidosis of lung (principal); J18.9 Pneumonia, unspecified organism; F41.9 Anxiety disorder, unspecified; Z11.52 Encounter for screening for COVID-19; Z79.2 Long term (current) use of antibiotics
CPT/HCPCS: 99291; 96365; 96375; 94640; 71045; 82805; 82962; 83605; 85025; 87040; 87502; 87811; 93005

== ENCOUNTER 2024-07-20 15:52 | Inpatient (IN) | payer OTHER, SELFPAY ==
[2024-07-20] VITALS (19 sets, daily range): BP systolic 134–164; BP diastolic 72–135; PULSE 2–120; BMI 17.4; BMI 16.5
--- NOTE | 2024-07-20 11:59 | ED.GENMED ---
History of Present Illness
General
Chief Complaint: Breathing Problem
Source: patient, family (Daughter), ambulance crew and previous hospital records
Exam Limitations: clinical condition
Time Seen by Provider: 07/20/24 11:55
Nursing documentation reviewed up to this point in time: agreed with
History of Present Illness
History of Present Illness:
64-year-old female with a past medical history of sarcoidosis, interstitial lung disease, anxiety, vocal cord paralysis, chronic respiratory failure who presents to the emergency room with her daughter; presents via EMS in respiratory distress.
Patient is somewhat limited as a historian due to history of vocal cord paralysis. She is able to communicate nonverbally and by mouthing words. Her daughter is also at bedside and EMS provided some collateral history; furthermore she has
paperwork from recent hospitalization at [facility] which was reviewed. Patient reports shortness of breath became acutely worse this morning; she does have chronic respiratory failure and is on 4 L of oxygen normally. Per review of paperwork from
[facility]: She was hospitalized 06/11 until 07/[facility]. She was seen by pulmonology Dr. Lee. She was treated for acute hypoxic respiratory failure secondary to pneumonia and interstitial lung disease. During this hospitalization she had a PEG tube
placed for malnutrition. She was actually she had issues with vocal cord paralysis. She was also seen by psychiatry for hallucinations during her hospitalization.
Past History
Past History
ED Past Medical History: Other (sarcoidosis)
ED Past Surgical History: Cholecystectomy, and Other (Breast augmentation)
Social History
Tobacco: Non-smoker
Alcohol: Occasional
Drug: None
Personal:
Living: with family
Employment: Not employed
Review of Systems
Review of Systems
All Other Systems: ROS reviewed and negative except as documented in HPI and ROS
Constitutional: Denies fever
Respiratory: Reports cough and trouble breathing
Cardiac: Denies chest pain
ABD/GI: Denies abdominal pain
: Denies flank pain
Musculoskeletal: Reports edema; Denies neck pain or back pain
Neurological: Denies headache
Phy Exam
Physical Exam
Physical Exam:
General: Awake, alert, anxious appearing and in respiratory distress
Head: Normocephalic, atraumatic
Eyes: Conjunctiva normal, sclera anicteric
Throat: Airway intact, moist mucous membranes
Neck: Trachea midline, no JVD
Lungs: Patient has pronounced rales throughout all lung mariscal; she is hypoxic requiring 100% nonrebreather mask, tachypneic with respiratory rates in the 30s and 40s
Heart: Tachycardia with regular rhythm, no murmurs, gallops, or rubs
Abd: Soft, non distended, PEG in place
Neuro: No gross deficits
Extremities: Trace edema on the ankles, extremities are warm and well-perfused
Scores
Heart Failure Risk
Heart Failure Risk Score: Not Applicable
Heart Score for Chest Pain Patients
STEMI patient?: Not applicable
Withdrawal Assessment of Alcohol
Withdrawal Assessment Completed?: Not applicable
Course
Orders/Labs/Results
Orders:
Orders
07/20/24 11:50
Cr Chest Portable [CR Chest Portable - 1 View] Stat
Comment:
Reason For Exam: resp distress
Reason Study Needs to be Portable: Unable to Transport
07/20/24 11:51
Electrocardiogram (*1) Urgent
Reason for Study: Other
Other Reason for Exam: Respiratory Distress
EKG- Treatment ONCE
07/20/24 11:57
CT Chest PE Study Urgent
Comment:
Reason For Exam: resp distress, h/o ILD
07/20/24 12:09
COVID-19 Antigen Urgent
Source: Nasal Swab
Influenza A+B Rapid Molecular Urgent
CLARI Source: Nasal Swab
Specimen Description:
07/20/24 12:28
Cefepime HCl [Maxipime] 1,000 mg IV NOW STA
Dexamethasone Sod Phosphate [Decadron] 10 mg IV NOW STA
Ipratropium/Albuterol Sulfate [Duoneb] 3 ml INH R NOW ONE
07/20/24 12:31
Complete Blood Count/With Diff Urgent
NT-proBNP Urgent
Troponin I Urgent
07/20/24 12:32
ABG [Arterial Blood Gas] Urgent
%Oxygen/Room Air: 70
Comprehensive Metabolic Panel Urgent
PTT Urgent
Prothrombin Time Urgent
07/20/24 12:40
Sterile Water [Sterile Water For Injection] 10 ml .ROUTE .STK-MED ONE
07/20/24 13:11
Sputum Culture [Respiratory Culture/Gram Stain] Urgent
CLARI Source: Sputum
Specimen Description:
Vancomycin 1 Gram/200 ml [Vancocin] 1 gram in 200 ml IV NOW
07/20/24 13:15
Blood Culture Q30M
CLARI Source: Blood/Venous
Specimen Description:
07/20/24 13:19
ABG [Arterial Blood Gas] Urgent
%Oxygen/Room Air: 90
07/20/24 13:45
Blood Culture Q30M
CLARI Source: Blood/Venous
Specimen Description:
Abnormal Lab Results
07/20/24 07/20/24 07/20/24
12:31 12:32 13:19
WBC 27.2 H 10^3/uL
(4.8-10.8)
RBC 3.69 L 10^6/uL
(4.20-5.40)
Hgb 11.5 L g/dL
(12.0-16.0)
Hct 36.3 L %
(37.0-47.0)
MCH 31.2 H pg
(27.0-31.0)
MCHC 31.7 L g/dL
(33.0-37.0)
Plt Count 629 H 10^3/uL
(130-400)
MPV 10.7 H fL
(7.4-10.4)
Abs Immat Gran (auto) 0.2 H 10^3/uL
(0-0.05)
Absolute Neuts (auto) 26.2 H 10^3/uL
(1.4-6.5)
Absolute Lymphs (auto) 0.2 L 10^3/uL
(1.2-3.4)
Immature Gran % 0.9 H %
(0-0.5)
Neutrophils % 96.3 H %
(42.2-75.2)
Lymphocytes % 0.7 L %
(20.5-51.1)
pCO2 101 H* mmHg 100 H* mmHg
(32-35) (32-35)
pO2 70 L mmHg
(83-108)
HCO3 58.4 H* mmol/L 55.2 H* mmol/L
(21-28) (21-28)
Chloride 81 L mmol/L
(98-107)
Carbon Dioxide 45 H mmol/L
(22-30)
BUN 25 H mg/dl
(7-17)
Creatinine 0.4 L mg/dL
(0.6-1.0)
Glucose 173 H mg/dl
(70-99)
AST 73 H U/L
(14-36)
ALT 105 H U/L
(0-35)
Alkaline Phosphatase 134 H U/L
(38-126)
Troponin I 0.489 H* ng/ml
07/20/24 12:31
07/20/24 12:32
Vital Signs
Initial and Last Documented VS:
Initial Vital Signs
Pulse Resp BP Pulse Ox
117 40 156/82 72
07/20/24 11:55 07/20/24 11:55 07/20/24 11:55 07/20/24 11:55
Last Documented Vital Signs
Pulse Resp BP Pulse Ox
122 25 156/82 95
07/20/24 13:36 07/20/24 13:36 07/20/24 11:55 07/20/24 13:36
MDM/Problems Addressed
Differential Diagnosis Includes:
Pneumonia, ILD, PE, pneumothorax, CHF
MDM/Problems Addressed:
64-year-old female with history of interstitial lung disease, recent complicated hospitalization at [facility] presents to the ER for evaluation of shortness of breath that she presents in respiratory distress. She is hypoxic requiring nonrebreather
mask, tachypneic, tachycardic. Blood pressure marginally elevated. Afebrile. Physical exam as above. Oxygenation did improve with nonrebreather mask but patient still with significant tachypnea. I had a long discussion with patient and
daughter�unfortunately patient failed trial of BiPAP she was continually ripping mask off and says that she cannot tolerate the mask. Transition to high flow nasal cannula. Discussed with patient and daughter that if respiratory status not
improving with this measure she may require intubation�patient currently is full code. Stat chest x-ray reviewed by me shows acute on chronic changes most pronounced in the right lung�multifocal consolidations. Will check CT chest to better
evaluate. IV established and usual labs sent off including a CBC and a CMP will check proBNP and troponin. Swab for COVID and flu. Check coags. Serial blood gases. Monitor very closely. Placed a call to pulmonology at [facility] to discuss.
Initial blood gas reviewed: pH normal 7.37 but markedly elevated pCO2 at 101. PO2 only 83 on high flow nasal cannula. Clinically patient's respiratory status seems to have improved slightly on high flow although respiratory rate still in the high
20s to low 30s. She does not have any accessory muscle use. Oxygenation has been acceptable. Will follow blood gas, monitor for now but low threshold for intubation. We did provide DuoNeb, steroid, broad-spectrum antibiotic treatment empirically
given acuity of illness.
CTA shows no PE but does show severe multifocal pneumonia on top of interstitial lung disease. Her labs showed marked leukocytosis of 27.2. CMP shows mild hyperglycemia but acceptable electrolytes and renal function. Troponin and proBNP elevated
suspect in the setting of significant hypoxia. Will need to trend. COVID and flu negative. Repeat blood gas pending but patient's clinical status has improved her oxygenation is acceptable on high flow nasal cannula and respiratory rate is in the
high 20s with no accessory muscle use. I had a long discussion with the patient and her daughter�I explained that if blood gas worsens her clinical status is likely to deteriorate as well and she may very well need higher level of respiratory
support�explained that if she does not tolerate BiPAP (which initially she tolerated very poorly on short trial here) then she would require intubation. Patient indicated that she does not wish to be intubated under any circumstances--I clarified
and she specifically indicated that even if the choice was between intubation and dying that she would prefer not to be intubated. She would be willing to trial BiPAP again but only if absolutely necessary. Will plan to work towards admission at
this point in time�patient has been covered with broad-spectrum antibiotics diagnosis is acute on chronic respiratory failure with hypoxia and hypercapnia secondary to multifocal pneumonia. Case discussed with hospitalist for admission.
Repeat blood gas essentially unchanged�in fact the pO2 is actually slightly worse. Her clinical status seems to have slightly improved. Discussed with patient and daughter as well as who is now at bedside. I am concerned that if this
trend continues she has impending respiratory failure. Patient willing to trial BiPAP again. Low-dose Ativan for anxiety. Reassess. Admitted to hospitalist team.
Chronic conditions affecting care:
Interstitial lung disease, chronic respiratory failure
Acute Exacerbation and/or Progression of Chronic Illness:
Acute on chronic respiratory failure managed as above
*Radiology
Radiology exam reviewed: preliminary read by ED provider and radiology read reviewed
*Pulse Oximetry
Patient hypoxic: yes
*EKG
Interpreted by ED Provider?: Yes
Heart Rate: 117
Rate: tachycardiac
Rhythm: sinus and sinus tachycardia
[place]: normal axis
Interval: normal interval
QRS Pattern: normal QRS
Ischemia: T-wave inversion
*Critical Care Note
Total Time (30-74mins, 75-104mins- exclusive of procedures): 47
comment:
Critical care statement: A total of 47 minutes of critical care time was provided for this patient. This includes management of unstable vital signs, evaluation of the patient at bedside, frequent reassessment, discussion with
consultants/hospitalist, and review of pertinent medical records. This time was separate from time utilized to perform any aforementioned documented procedures
Data Reviewed
Review of Other/Old Records Reveals: Labs and Records
Source: patient, records and ambulance crew
Patient Management
Discussion with other providers: Hospitalist (Discussed with hospitalist) and Other (Discussed with pulmonology team at [facility])
Escalation/DeEscalation of care consider admission/obs:
Admission indicated
ED Attending Note
-
Portions of this chart may have been created with voice recognition software.� Occasional wrong word or��sound alike� substitutions may have occurred due to the inherent limitations of voice recognition software.
Discharge Plan
Departure
Patient Disposition: Admit
Date of Disposition: 07/20/24
Time of Disposition: 13:39
Admit to doctor: Debra
Presentation/result/management discussed w/ accepting MD/DO: Hospitalist
Discharge Problem:
Acute respiratory failure with hypoxia and hypercarbia, Multifocal pneumonia, Interstitial lung disease
Prescriptions:
No Action
ondansetron HCl 4 MG tablet
4 mg PO [id number] PRN (Reason: nausea)
albuterol sulfate [Ventolin HFA] 90 MCG/PUFF HFA aerosol inhaler
2 puff inhalation R Q6HPRN PRN (Reason: sob/wheezing)
methotrexate sodium 2.5 mg tablet
20 mg PO MO
folic acid 1 mg tablet
1 mg PO DAILY
Patient Comments:
mg
bupropion HCl 300 mg tablet extended release 24 hr
300 mg PO DAILY
Patient Comments:
07/25/2023: taken w/ 150mg = 450mg
alprazolam [Xanax] 0.25 mg Tablet
0.25 mg PO TIDPRN PRN (Reason: anxiety)
fluticasone propion-salmeterol [Advair HFA] 115-21 mcg/actuation Hfa Aerosol Inhaler
2 puff INHALATION R BID
sennosides [senna] 8.6 mg Tablet
8.6 mg PO BID
levalbuterol HCl 0.63 mg/3 mL solution for nebulization
3 mg INHALATION QIDPRN PRN (Reason: sob/wheezing)
fluconazole 200 mg tablet
200 mg PO DAILY
famotidine 40 mg tablet
40 mg PO DAILY@1400
prednisone 5 mg tablet
15 mg PO DAILY
thiamine HCl (vitamin B1) 100 mg Tablet
100 mg PO DAILY
amlodipine 10 mg tablet
10 mg PO DAILY
pantoprazole 40 mg tablet,delayed release (DR/EC)
40 mg PO BID
mirtazapine 30 mg tablet
30 mg PO HS
melatonin 10 mg Tablet
10 mg PO HS
magnesium oxide 400 mg magnesium Tablet
400 mg PO DAILY
Referrals:
Latrice Pearce DO [Family Provider] -
Interventions
Interventions:
*Risk Screen - Suicide Last Done: 07/20/24 11:55
*General Assessment Last Done: 07/20/24 11:55
*Neglect/Abuse Screening Last Done: 07/20/24 11:55
*ED COVID-19 Vaccine History Last Done: 07/20/24 12:19
Discharge Date and Time
Print Language: KYRGYZ
[2024-07-20 12:33] LABS: COVID-19 Antigen Negative (Negative)
[2024-07-20 12:43] LABS: B.E. 27.6 mmol/L; PO2 83 mmHg (83-108); pH 7.37 (7.35-7.45)
[2024-07-20] MEDS: MAXIPIME 1000 MG IV (12:43)
[2024-07-20] MEDS: DECADRON 10 MG IV (12:43)
[2024-07-20 12:46] LABS: PCO2 101 mmHg (32-35)
[2024-07-20 12:47] LABS: HCO3 58.4 mmol/L (21-28)
[2024-07-20 12:51] LABS: INR 0.94; PT 12.9 Sec (11.4-14.6)
[2024-07-20 12:52] LABS: APTT 28.9 Sec (23.4-35.0)
[2024-07-20 12:56] LABS: ALT (SGPT) 105 U/L (0-35); AST (SGOT) 73 U/L (14-36); Albumin 3.8 g/dl (3.5-5.0); Alkaline Phosphatase 134 U/L (38-126); Chloride 81 mmol/L (98-107); Estimated Creatinine Clearance 66 ml/min; Glucose 173 mg/dl (70-99); Potassium 5.1 mmol/L (3.5-5.1); Sodium 136 mmol/L (135-145); Total Protein 7.4 g/dl (6.3-8.2); eGFR > 60.00
[2024-07-20 13:02] LABS: % Basophils 0.3 % (0-2); % Immature Granulocytes 0.9 % (0-0.5); % Lymphocytes 0.7 % (20.5-51.1); % Monocytes 1.8 % (1.7-9.3); % Neutrophils 96.3 % (42.2-75.2); Absolute Basophils 0.1 10^3/uL (0-0.2); Absolute Immature Granulocytes 0.2 10^3/uL (0-0.05); Absolute Lymphocytes 0.2 10^3/uL (1.2-3.4); Absolute Monocytes 0.5 10^3/uL (0.1-0.6); Absolute Neutrophils 26.2 10^3/uL (1.4-6.5); Hematocrit 36.3 % (37.0-47.0); Hemoglobin 11.5 g/dL (12.0-16.0); Mean Corp Hgb Conc. 31.7 g/dL (33.0-37.0); Mean Corpuscular Hgb 31.2 pg (27.0-31.0); Mean Corpuscular Volume 98.4 fL (81.0-99.0); Mean Platelet Volume 10.7 fL (7.4-10.4); Nucleated Red Blood Cells % 0 %; Platelet Count 629 10^3/uL (130-400); Red Blood Cell Count 3.69 10^6/uL (4.20-5.40); Red Cell Dist. Width 13.2 % (11.5-14.5); White Blood Cell Count 27.2 10^3/uL (4.8-10.8)
[2024-07-20 13:10] LABS: NT-proBNP 5520 pg/ml; Troponin I 0.489 ng/ml
[2024-07-20 13:24] LABS: Blood Urea Nitrogen 25 mg/dl (7-17); Total Bilirubin 0.4 mg/dl (0.2-1.3)
[2024-07-20 13:27] LABS: B.E. 24.8 mmol/L; O2 Saturation % 95.2 % (94-98); PO2 70 mmHg (83-108); pH 7.35 (7.35-7.45)
[2024-07-20 13:31] LABS: PCO2 100 mmHg (32-35)
[2024-07-20 13:32] LABS: HCO3 55.2 mmol/L (21-28)
[2024-07-20] MEDS: DUONEB 3 ML INH ×3 (13:32→20:19)
[2024-07-20 13:35] LABS: Carbon Dioxide 45 mmol/L (22-30)
[2024-07-20] MEDS: ATIVAN 0.25 MG IV ×2 (13:50→21:25)
--- NOTE | 2024-07-20 14:27 | HPS.HSE ---
Addendum entered and electronically signed by Gaetano Espino DO 07/20/24 16:40:
Appreciate workup and H&P by Rebecca Jin.
Additional comments as follows:
Ms. Enriquez is a 64-year-old female with a medical history of pulmonary sarcoidosis, chronic respiratory failure, vocal cord paralysis, and recent prolonged admission at [facility] for respiratory failure presented via EMS with
respiratory distress. Family was present at bedside including one of her daughters who is a nurse at [employer] and also the patient's POA. Patient developed vocal cord paralysis during her hospitalization at [facility] from 06/11 through 07/12 and subsequently
required PEG tube placement. In the ED today, patient is awake and alert although unable to communicate verbally due to severe tachypnea and increased work of breathing. Family notes new onset pedal edema today. Labs were significant for
leukocytosis of 27,000, arterial blood gas showing severe hypercarbia with a PCO2 of 100, BNP of 5000, troponin of 0.48, and elevated LFTs (AST 73/ALT 105/alk phos 134). Chest imaging showed no evidence of PE but did show acutely worsened bilateral
airspace disease compared to previous imaging likely representing acute multifocal pneumonia superimposed on her pulmonary sarcoidosis. She was unable to tolerate BiPAP but is a bit more comfortable now on high flow nasal cannula and nonrebreather
mask. She has been started on broad-spectrum antibiotics and admitted for further evaluation and management. At this point the patient and her POA do not want intubation even in the short-term. She has 2 sons who live out of town but are
potentially come to the hospital to see her.
General: Respiratory distress, severely tachypneic, emaciated
HEENT: NormoCephalic, dry mucous membranes, high flow nasal cannula and nonrebreather in place
Respiratory: Significant accessory muscle use, diffuse crackles bilaterally, no wheezing
Cardiac: Regular Rhythm, tachycardic with heart rate around 110
GI: Soft, Non Tender, Non Distended, PEG tube in place
Musculoskeletal: Mild pedal edema, no deformity, severely decreased muscle bulk throughout
Skin: Warm and dry
: NO Pham
Neuro: Awake but drowsy, Nonfocal/grossly intact
Psych: Anxious, cooperative
Acute on chronic respiratory failure with hypoxia:
- Patient does not want to be intubated
- Likely secondary to multifocal pneumonia superimposed on pulmonary sarcoidosis, potentially a component of volume overload
- Continue noninvasive ventilation as tolerated, patient is willing to trial BiPAP again if needed
- Continue broad-spectrum antibiotics and follow-up cultures
- Trial of IV Lasix for potential volume overload
- IV steroids and nebulizer treatments
Severe sepsis secondary to multifocal pneumonia:
- Superimposed on advanced pulmonary sarcoidosis
- Avoid further IV fluids for now considering she may be volume overloaded, trialing a dose of IV Lasix
- Continue broad-spectrum antibiotics, follow-up cultures
Elevated troponin:
- Likely secondary to acute respiratory distress
- However new lateral T wave inversions on EKG and possible volume overload raises suspicion of acute cardiac process
- Will start IV heparin drip and trend troponins through peak
- Continue to address primary pulmonary pathology
Abnormal LFTs:
- Mild, unclear etiology, possibly due to vascular congestion
- Will monitor, if not resolving will get dedicated liver imaging
CODE STATUS: DNR
Original Note:
Family Physician
-
Family Physician: Latrice Pearce DO
Chief Complaint
-
Respiratory Distress
History of Present Illness
Patient is a 64 y/o female past medical history of interstitial lung disease secondary to sarcoidosis and vocal cord paralysis with recent PEG tube placement who presents with respiratory distress. Upon my evaluation patient is unable to provide
much history. Additional history obtained from patient's family at bedside and review with ED staff. Patient was recently hospitalized at [facility] from June 11 to July 12. Over the past few days she had appeared more short of breath, but today
became acutely worse. Family at bedside has noted increased lower extremity edema the past few days.
Medical History
Past Medical History
Past Medical History: Reports Other
Additional Past Medical History:
Interstitial Lung Disease
Sarcoidosis
Essential Hypertension
Generalized Anxiety Disorder
Past Surgical History: Reports Other
Additional Past Surgical History:
Breast Implants
Cholecystectomy
Social History
Tobacco: Non-smoker
Living: With Family
Family History
Family History: Unable to Obtain
Allergies / Home Medications
Allergies reflects when Allergies were last updated in [facility].
Home Medications with original date entered in [facility]
Allergy/Medication List:
Allergies
Allergy/AdvReac Type Severity Reaction Status Date / Time
hydromorphone HCl Allergy Nausea / Verified 07/20/24 12:01
[From Dilaudid] Vomiting
Sulfa (Sulfonamide Allergy Rash Verified 07/20/24 12:01
Antibiotics)
Home Medications
albuterol sulfate 90 mcg/actuation aerosol inhaler (Ventolin HFA) 2 puff inhalation R Q6HPRN PRN sob/wheezing 08/14/14
ondansetron HCl 4 mg tablet 4 mg PO [id number] PRN nausea 08/14/14
bupropion HCl 300 mg 24 hr tablet, extended release 300 mg PO DAILY Mental Health/Anxiety 07/25/23
folic acid 1 mg tablet 1 mg PO DAILY depression 07/25/23
methotrexate sodium 2.5 mg tablet 20 mg PO MO sarcoidosis 07/25/23
alprazolam 0.25 mg tablet (Xanax) 0.25 mg PO TIDPRN PRN anxiety 01/24/24
fluticasone propionate 115 mcg-salmeterol 21 mcg/actuation HFA inhaler (Advair HFA) 2 puff inhalation R BID 04/26/24
amlodipine 10 mg tablet 10 mg PO DAILY 07/20/24
famotidine 40 mg tablet 40 mg PO DAILY@1400 07/20/24
fluconazole 200 mg tablet 200 mg PO DAILY 07/20/24
levalbuterol HCl 0.63 mg/3 mL solution for nebulization 3 mg inhalation QIDPRN PRN sob/wheezing 07/20/24
magnesium oxide 400 mg PO DAILY 07/20/24
melatonin 10 mg tablet 10 mg PO HS 07/20/24
mirtazapine 30 mg tablet 30 mg PO HS 07/20/24
pantoprazole 40 mg tablet,delayed release 40 mg PO BID 07/20/24
prednisone 5 mg tablet 15 mg PO DAILY 07/20/24
sennosides 8.6 mg tablet (senna) 8.6 mg PO BID 07/20/24
thiamine HCl (vitamin B1) 100 mg tablet 100 mg PO DAILY 07/20/24
Review of Systems
-
Unable to obtain full review of systems at this time due to: Acuity
Physical Exam
Vital Signs
Vital Signs
Pulse Resp BP Pulse Ox
122 25 156/82 95
07/20/24 13:36 07/20/24 13:36 07/20/24 11:55 07/20/24 13:36
Physical Exam
General: Respiratory Distress and Appears Chronically Ill
HEENT: Oxygen (High Flow Nasal Cannula )
Respiratory: Accessory Resp Muscle Use and Decreased Breath Sounds (Throughout)
Cardiac: S1/S2 and Tachycardia
GI: Soft and Non Tender
Musculoskeletal: No Clubbing, No Cyanosis and Other (+1 pitting edema bilateral lower extremities)
Skin: Warm and Dry
Neuro: Other (Opens eyes, tries to answer a few simple questions; unable to perform complete neurologic evaluation due to acute situation)
Laboratory Results
-
07/20/24 12:31
07/20/24 12:32
Laboratory Results
PT 12.9 Sec (11.4-14.6) 07/20/24 12:32
INR 0.94 07/20/24 12:32
APTT 28.9 Sec (23.4-35.0) 07/20/24 12:32
pH 7.35 (7.35-7.45) 07/20/24 13:19
pCO2 100 mmHg (32-35) H* 07/20/24 13:19
pO2 70 mmHg (83-108) L 07/20/24 13:19
HCO3 55.2 mmol/L (21-28) H* 07/20/24 13:19
Total Bilirubin 0.4 mg/dl (0.2-1.3) 07/20/24 12:32
AST 73 U/L (14-36) H 07/20/24 12:32
ALT 105 U/L (0-35) H 07/20/24 12:32
Alkaline Phosphatase 134 U/L (38-126) H 07/20/24 12:32
Troponin I 0.489 ng/ml H* 07/20/24 12:31
Data Reviewed
-
CT Scan: Report Reviewed by me
Lab Data: Labs Reviewed by me
Old Records: Reviewed
Impression/Plan
-
Acute on Chronic Hypoxic/Hypercapnic Respiratory Failure
-Multiple discussions with patient's family
-At the time of my evaluation patient expresses she does not want to be intubated
-Continue support with high flow oxygen
Acute Heart Failure, unknown type
-Start Lasix 40mg IV BID
-Place for Pham for critical Is&Os
Elevated Troponin, possible NSTEMI as ECG does reveal new ischemic changes vs non-ischemic myocardial injury due to profound hypoxia
-Consult Cardiology
-Trend troponin
Multi-Focal Pneumonia
-Continue vancomycin and cefepime
Interstitial Lung Disease secondary to Sarcoidosis
-Continue Decadron
-Continue Pulmicort Nebs
-Continue DuoNeb QID and PRN
Vocal Cord Paralysis
-Hold tube feeding for now with acute respiratory distress
Essential Hypertension
-Monitor blood pressure while on diuretics
Code Status: DNR
[2024-07-20] MEDS: LASIX 40 MG IV (15:19)
--- NOTE | 2024-07-20 15:20 | W.PN.UPDATE ---
Update Note
Progress Note Update
Ms. Enriquez is a 64-year-old female with a medical history of pulmonary sarcoidosis, chronic respiratory failure, vocal cord paralysis, and recent prolonged admission at [facility] for respiratory failure presented via EMS with
respiratory distress. Family was present at bedside including one of her daughters who is a nurse at [employer] and also the patient's POA. Patient developed vocal cord paralysis during her hospitalization at [facility] from 06/11 through 07/12 and subsequently
required PEG tube placement. In the ED today, patient is awake and alert although unable to communicate verbally due to severe tachypnea and increased work of breathing. Family notes new onset pedal edema today. Labs were significant for
leukocytosis of 27,000, arterial blood gas showing severe hypercarbia with a PCO2 of 100, BNP of 5000, troponin of 0.48, and elevated LFTs (AST 73/ALT 105/alk phos 134). Chest imaging showed no evidence of PE but did show acutely worsened bilateral
airspace disease compared to previous imaging likely representing acute multifocal pneumonia superimposed on her pulmonary sarcoidosis. She was unable to tolerate BiPAP but is a bit more comfortable now on high flow nasal cannula and nonrebreather
mask. She has been started on broad-spectrum antibiotics and admitted for further evaluation and management. At this point the patient and her POA do not want intubation even in the short-term. She has 2 sons who live out of town but are
potentially come to the hospital to see her.
General: Respiratory distress, severely tachypneic, emaciated
HEENT: NormoCephalic, dry mucous membranes, high flow nasal cannula and nonrebreather in place
Respiratory: Significant accessory muscle use, diffuse crackles bilaterally, no wheezing
Cardiac: Regular Rhythm, tachycardic with heart rate around 110
GI: Soft, Non Tender, Non Distended, PEG tube in place
Musculoskeletal: Mild pedal edema, no deformity, severely decreased muscle bulk throughout
Skin: Warm and dry
: NO Pham
Neuro: Awake but drowsy, Nonfocal/grossly intact
Psych: Anxious, cooperative
Acute on chronic respiratory failure with hypoxia:
- Patient does not want to be intubated
- Likely secondary to multifocal pneumonia superimposed on pulmonary sarcoidosis, potentially a component of volume overload
- Continue noninvasive ventilation as tolerated, patient is willing to trial BiPAP again if needed
- Continue broad-spectrum antibiotics and follow-up cultures
- Trial of IV Lasix for potential volume overload
- IV steroids and nebulizer treatments
Severe sepsis secondary to multifocal pneumonia:
- Superimposed on advanced pulmonary sarcoidosis
- Avoid further IV fluids for now considering she may be volume overloaded, trialing a dose of IV Lasix
- Continue broad-spectrum antibiotics, follow-up cultures
Elevated troponin:
- Likely secondary to acute respiratory distress
- However new lateral T wave inversions on EKG and possible volume overload raises suspicion of acute cardiac process
- Will start IV heparin drip and trend troponins through peak
- Continue to address primary pulmonary pathology
Abnormal LFTs:
- Mild, unclear etiology, possibly due to vascular congestion
- Will monitor, if not resolving will get dedicated liver imaging
CODE STATUS: DNR
[2024-07-20 15:34] LABS: Glucose - Point of Care 251 mg/dl (70-99)
[2024-07-20] MEDS: VANCOCIN 200 IV (15:37)
--- NOTE | 2024-07-20 16:53 | CON.CAR ---
Addendum entered and electronically signed by Andrea Tsang MD 07/20/24 17:57:
I saw and examined the patient.
The ROLL OUT MANAGER's note was reviewed and I agree with the note.
Comment: 64yoF with complicated medical history including sarcoidosis ---significant pulmonary involvement with e/o of possible cardiac involvement on CMR in 04/2024, chronic hypoxic respiratory failure, vocal cord paralysis and recent prolonged
hospitalization at [facility] with resultant PEG on discharge p/w acute sob. 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 She is on high flow and NRB. Shakes head to questions, feeling a bit better, less sob. No chest pain or pain anywhere recognizes her
daughters at the bedside. Deja is her daughter she wishes me to keep up to date. On exam she has increased work of breathing, diffuse rhochi and rales b/l regular rate with tachcardic rhythm. ECG ST with biatrial enlargement, NS TW change no
significant change from 01/11/24.labs with troponin of 0.489 to 0.470, proBNP 5520 blood gas pH 7.35 pCO2 [address] images reviewed showing extensive bilateral airspace disease heart without pericardial effusion. Overall she presents with
acute on chronic hypoxic and hypercarbic respiratory failure in the setting of pulmonary sarcoidosis, pneumonia, question aspiration event 2 days ago, and heart failure with preserved EF. She does not want to be intubated. Will attempt supportive
care. Currently on high flow and nonrebreather. Agree with IV diuresis. Type II WY in the setting of acute pulmonary edema. NO heparin gtt needed, treat underlying illness. Overall prognosis is very poor.
Patient DNR
D/w Dr Espino
Original Note:
Consultation
Consultation Request
Date/Time Consultation Requested: 07/20/2024 16:15
Date/Time Consultation Performed: 07/20/2024 16:30
Requesting Provider: Rebecca Jin PA-C
Performing Provider: FCO Slaughter for Dr. Tsang
Reason for Consultation: Elevated proBNP, abnormal troponin
Medical History
-
Chief Complaint: Shortness of breath
History of Present Illness:
Cristiane Enriquez is a 64-year-old female with a past medical history significant for sarcoidosis (significant pulmonary involvement), chronic hypoxic respiratory failure, and vocal cord paralysis with recent prolonged admission at [facility]
where she was treated for pneumonia twice and was discharged home with a PEG. She presents emergency room today with increased work of breathing. She was found to have an elevated proBNP of 5000 and the family reported some lower extremity edema.
Other lab values that were significant include leukocytosis at 27,000, a troponin of 0.489, and a blood gas with a CO2 of 101 and bicarb of 58. Cardiology was consulted for abnormal EKG, abnormal troponin, and an elevated proBNP. At the time of
this exam her daughter at the bedside provided most of the information due to her significant respiratory distress. Her shortness of breath started approximately 24 hours and progressed throughout the day. Notable events include an episode of
vomiting 2 days ago.
Past Medical History
Past Medical History: Arrhythmias (Sinus tachycardia) and Other (Sarcoidosis, vocal cord paralysis)
Past Surgical History: Cholecystectomy and
Social History
Alcohol: None
Living: With Family
Family History
Family History: Unable to Obtain
Allergies / Home Medications
Allergy/AdvReac Type Severity Reaction Status Date / Time
hydromorphone HCl Allergy Nausea / Verified 07/20/24 12:01
[From Dilaudid] Vomiting
Sulfa (Sulfonamide Allergy Rash Verified 07/20/24 12:01
Antibiotics)
�Medication �Instructions �Recorded �Confirmed �Type
albuterol sulfate 90 mcg/actuation 2 puff inhalation R Q6HPRN PRN 08/14/14 07/20/24 History
aerosol inhaler (Ventolin HFA) sob/wheezing
ondansetron HCl 4 mg tablet 4 mg PO [id number] PRN nausea 08/14/14 07/20/24 History
bupropion HCl 300 mg 24 hr tablet, 300 mg PO DAILY Mental 07/25/23 07/20/24 History
extended release Health/Anxiety
folic acid 1 mg tablet 1 mg PO DAILY depression 07/25/23 07/20/24 History
methotrexate sodium 2.5 mg tablet 20 mg PO MO sarcoidosis 07/25/23 07/20/24 History
alprazolam 0.25 mg tablet (Xanax) 0.25 mg PO TIDPRN PRN anxiety 01/24/24 07/20/24 History
fluticasone propionate 115 2 puff inhalation R BID 04/26/24 07/20/24 History
mcg-salmeterol 21 mcg/actuation
HFA inhaler (Advair HFA)
amlodipine 10 mg tablet 10 mg PO DAILY 07/20/24 07/20/24 History
famotidine 40 mg tablet 40 mg PO DAILY@1400 07/20/24 07/20/24 History
fluconazole 200 mg tablet 200 mg PO DAILY 07/20/24 07/20/24 History
levalbuterol HCl 0.63 mg/3 mL 3 mg inhalation QIDPRN PRN 07/20/24 07/20/24 History
solution for nebulization sob/wheezing
magnesium oxide 400 mg PO DAILY 07/20/24 07/20/24 History
melatonin 10 mg tablet 10 mg PO HS 07/20/24 07/20/24 History
mirtazapine 30 mg tablet 30 mg PO HS 07/20/24 07/20/24 History
pantoprazole 40 mg tablet,delayed 40 mg PO BID 07/20/24 07/20/24 History
release
prednisone 5 mg tablet 15 mg PO DAILY 07/20/24 07/20/24 History
sennosides 8.6 mg tablet (senna) 8.6 mg PO BID 07/20/24 07/20/24 History
thiamine HCl (vitamin B1) 100 mg 100 mg PO DAILY 07/20/24 07/20/24 History
tablet
Review of Systems
-
History Source: Patient
Constitutional: Fatigue
EENT: No Symptoms
Respiratory: Trouble Breathing
Cardiac: No Symptoms
Abdomen/GI: No Symptoms
: No Symptoms
Musculoskeletal: No Symptoms
Skin: No Symptoms
Neurological: Weakness
Endocrine: No Symptoms
Hematologic/Lymphatic: No Symptoms
Physical Exam
Vital Signs
Pulse Resp BP Pulse Ox
127 31 148/80 90
07/20/24 16:30 07/20/24 16:30 07/20/24 16:30 07/20/24 16:15
Lab Results
07/20/24 12:31
07/20/24 12:32
Troponin I 0.489 ng/ml H* 07/20/24 12:31
Sea-Q-Tthucrdqskd Pept 5520 pg/ml 07/20/24 12:31
Physical Exam
General: Well Developed, Respiratory Distress and Other (Cachexia)
HEENT: Normocephalic, Anicteric and Moist Mucous Membranes
Respiratory: Non Labored Respirations
Cardiac: S1/S2 and Regular Rhythm
Breast: Deferred by me
GI: Soft, Non Tender, Non Distended and Normal Bowel Sounds
Rectal: Deferred by Provider
Genito-urinary: No Costovertebral Tender
Musculoskeletal: No Clubbing and No Edema
Skin: Warm and Dry
Neuro: AO x 3
Hematologic/Lymphatic: No Lymphadenopathy
Psych: Calm
Impression / Plan
-
I/P: 64F with sarcoidosis (significant pulmonary involvement), chronic hypoxic respiratory failure, and vocal cord paralysis presents after prolonged admission at with sepsis in the setting of PNA
Primary supervisor carton and can supply: Dr. Arenas
Sepsis, in the setting of multifocal pneumonia
- Her daughter reports she was treated for pneumonia twice during her last admission
- She also had an episode of emesis 2 days ago
Acute hypoxic respiratory failure, in the setting multifocal pneumonia
- Her severe hypoxemia is a threat to life, DNR noted
- ABG 7.37/101/83/58.4 -> Did not tolerate BiPAP
- Currently requiring high flow nasal cannula at 60 LPM/100% FiO2 in addition to NRB
HFpEF, acute
- This could be prompted by sarcoid. MRI: Small amount of myocardial enhancement in the inferior wall of the left mid ventricle.
- Dose of furosemide 40 mg IV given in ER, continue for now - this requires intensive monitoring
- Trend daily weight, I/O, and BMP with diuresis
Abnormal troponin, type II WY - in the setting of acute hypoxic respiratory failure
- No chest pain, trend to peak
- Troponin on presentation 0.489
- Trivial luminal irregularities by cardiac catheterization 04/05/2024
- Echocardiogram when heart rate is more controlled
Abnormal LFTs, perhaps in the setting of sepsis
Abnormal EKG, these appear chronic
Sarcoidosis, follows with Dr. Lee at [facility]
Vocal cord paralysis, status post PEG, aspiration precautions
Underweight, BMI 17
Data Reviewed
-
EKG: Report Reviewed by me
Medical Tests (Nuc Med, Echo etc): Report Reviewed by me
Labs: Labs Reviewed by me
Old Records: Reviewed
--- NOTE | 2024-07-20 16:54 | CON.INTV ---
Addendum entered and electronically signed by Zenon Quevedo MD 07/20/24 19:03:
.
Original Note:
Consultation
Consultation Request
Date/Time Consultation Requested: 07/20/2024
Date/Time Consultation Performed: 07/20/2024
Requesting Provider: Dieterick. Fernandez
Performing Provider: Zenon Quevedo
Reason for Consultation: Hypoxic respiratory failure.
Medical History
-
Chief Complaint: Shortness of breath
History of Present Illness:
Patient is a 64-year-old female with likely end-stage sarcoidosis, chronic hypoxic and hypercapnic respiratory failure, vocal cord paralysis on tube feeding who presents to the emergency room via EMS with respiratory distress. Patient had about a
month-long hospitalization at [facility] for respiratory failure and was discharged home about 5 days ago. Patient reportedly over the last 5 days started developing more shortness of breath and ended up in the emergency room. Patient was
found to be profoundly hypoxic with worsening interstitial opacities and was tried on BiPAP which she was not able to tolerate and developed desaturations. She was subsequently transitioned to high flow nasal cannula and maxed out. Subsequently a
nonrebreather was also placed on top of it and in view of profound hypoxia, pulmonary consultation was requested for further input. Decision was eventually made to admit her to the ICU due to her tenuous respiratory status.
Patient reportedly had been evaluated at [facility] for transplant and was not felt to be a candidate for lung transplant. Patient was seen and evaluated at [facility] and was still in the process of completing workup for transplant evaluation.
Reportedly in June this year patient was noted to have vocal cord paralysis and subsequently required a PEG tube placement and is on tube feeding at home.
During my evaluation, patient was using her accessory muscles, was tachypneic in the high 30s of respiratory rate per minute with oxygen saturation around 91% while on high flow nasal cannula as well as nonrebreather. Patient was otherwise awake
and alert and able to participate in discussion at bedside.
Past Medical History
Past Medical History: Reports Other
Additional Past Medical History:
Interstitial Lung Disease
Sarcoidosis
Essential Hypertension
Generalized Anxiety Disorder
Past Surgical History: Reports Other
Additional Past Surgical History:
Breast Implants
Cholecystectomy
Social History
Tobacco: Non-smoker
Living: With Family
Family History
Family History: Unable to Obtain
Allergies / Home Medications
Allergies reflects when Allergies were last updated in [facility].
Allergies / Home Medications
Allergies
Allergy/AdvReac Type Severity Reaction Status Date / Time
hydromorphone HCl Allergy Nausea / Verified 07/20/24 12:01
[From Dilaudid] Vomiting
Sulfa (Sulfonamide Allergy Rash Verified 07/20/24 12:01
Antibiotics)
Home Medications
�Medication �Instructions �Recorded �Confirmed �Last Taken �Type
albuterol sulfate 90 mcg/actuation 2 puff inhalation R Q6HPRN PRN 08/14/14 07/20/24 04/25/24 History
aerosol inhaler (Ventolin HFA) sob/wheezing
ondansetron HCl 4 mg tablet 4 mg PO [id number] PRN nausea 08/14/14 07/20/24 01/22/24 History
bupropion HCl 300 mg 24 hr tablet, 300 mg PO DAILY Mental 07/25/23 07/20/24 04/25/24 History
extended release Health/Anxiety
folic acid 1 mg tablet 1 mg PO DAILY depression 07/25/23 07/20/24 04/26/24 History
methotrexate sodium 2.5 mg tablet 20 mg PO MO sarcoidosis 07/25/23 07/20/24 04/25/24 History
alprazolam 0.25 mg tablet (Xanax) 0.25 mg PO TIDPRN PRN anxiety 01/24/24 07/20/24 04/26/24 History
fluticasone propionate 115 2 puff inhalation R BID 04/26/24 07/20/24 04/26/24 History
mcg-salmeterol 21 mcg/actuation
HFA inhaler (Advair HFA)
amlodipine 10 mg tablet 10 mg PO DAILY 07/20/24 07/20/24 Unknown History
famotidine 40 mg tablet 40 mg PO DAILY@1400 07/20/24 07/20/24 Unknown History
fluconazole 200 mg tablet 200 mg PO DAILY 07/20/24 07/20/24 07/20/24 History
levalbuterol HCl 0.63 mg/3 mL 3 mg inhalation QIDPRN PRN 07/20/24 07/20/24 Unknown History
solution for nebulization sob/wheezing
magnesium oxide 400 mg PO DAILY 07/20/24 07/20/24 Unknown History
melatonin 10 mg tablet 10 mg PO HS 07/20/24 07/20/24 Unknown History
mirtazapine 30 mg tablet 30 mg PO HS 07/20/24 07/20/24 Unknown History
pantoprazole 40 mg tablet,delayed 40 mg PO BID 07/20/24 07/20/24 Unknown History
release
prednisone 5 mg tablet 15 mg PO DAILY 07/20/24 07/20/24 Unknown History
sennosides 8.6 mg tablet (senna) 8.6 mg PO BID 07/20/24 07/20/24 Unknown History
thiamine HCl (vitamin B1) 100 mg 100 mg PO DAILY 07/20/24 07/20/24 Unknown History
tablet
Review of Systems
-
Constitutional: Weight Loss and Fatigue
Respiratory: Cough and Trouble Breathing
Abdomen/GI: Anorexia
Musculoskeletal: Edema
Neuro: Weakness
Vitals / Labs / Diagnostic Testing
Vital Signs
Pulse Resp BP Pulse Ox
127 31 148/80 90
07/20/24 16:30 07/20/24 16:30 07/20/24 16:30 07/20/24 16:15
Lab Data
07/20/24 12:31
07/20/24 12:32
Laboratory Results
07/20/24 07/20/24
12: 13:19
PT 12.9
INR 0.94
APTT 28.9
pH 7.37 7.35
pCO2 101 H* 100 H*
pO2 83 70 L
HCO3 58.4 H* 55.2 H*
O2 Delivery Level Not Reportable
Microbiology
07/20/24 12:09 Nasal Swab Influenza Types A & B (DIPIKA) - Final
Negative for Influenza A & B, NAAT
Negative results must be combined with clinical observations
and patient history.
Nucleic Acid Amplification test (NAAT)performed on the
[employer] platform.
Diagnostic Testing:
Physical Exam
-
HEENT: Normocephalic and Other (Cachectic)
Cardiovascular: Peripheral Edema (Bilateral ) and Other (Tachycardiac)
Respiratory: Rales, Rhonchi and Accessory Resp Muscle Use
GI: Soft and Non Distended
Neurology: Awake and Alert
General: Respiratory Distress
Assessment
-
#1. Acute on chronic hypoxic and hypercapnic respiratory failure with End stage Sarcoidosis.
-Current worsening with significant worse interstitial changes could be due to Acute exacerbation of ILD, Volume overload vs interstitial pneumonia. With her vocal cord paralysis and tube feeding regurgitation, aspiration is also in differential
diagnosis.
-Start Solumedrol 250 mg IVPB daily for 3 days, then 40 mg daily. Serial ABG.
-IV Vancomycin and Cefepime. Patient had a month long hospitalization at [place] in June 2024. Follow-up cultures. Procalcitonin is only 0.15 making acute bacterial infection less likely.
-Start Lasix IV for concern of volume overload. Elevated BNP and pedal edema could be from cor pulmonale, await Cardiology consult, ECHO
-Hold tube feeding with aspiration risk
-Patient is in severe respiratory failure and on High flow cannula at 100% FiO2 along with Non-rebreather with pO2 of 70. PF ratio 70. Patient expressed very clearly that she would not want to be intubated. I explained to her as well as family at
bedside that her prognosis is very poor and her oxygen level is very low despite maximum amount of O2 we can give without intubating. Patient and her medical power of Punch Hand, daughter, Bridfelipa, both expressed understanding of likely end stage
Sarcoidosis and that she might not survive this hospitalization.
-I met with family and patient multiple times through the evening and called [facility] transfer center also, as she has been evaluated there in the past for transplant candidacy. Patient and family told me that she was not felt to be a transplant
candidate at [facility].
#2. End-stage sarcoidosis.
-Reviewed Dr. Lee's clinic notes. Patient has been on methotrexate and prednisone. Antifibrotic's were not considered because of patient's cachexia and progressive weight loss. Emergency room physician also discussed with Dr. Lee today he
expressed that all therapies for sarcoidosis treatment have been exhausted and patient has end-stage sarcoidosis.
#3. Acute on chronic heart failure, suspect underlying cor pulmonale, ?Cardiac Sarcoidosis Patient's BNP is 5500 along with elevated troponin. Patient has significant pedal edema, abnormal LFTs which could be related to chronic passive congestion.
-Cardiac MRI in April 2024 showed a small amount of myocardial enhancement in the inferior wall of the left mid ventricle with diagnostic possibilities included mild cardiac sarcoidosis versus mild scarring
-Continue diuresis with IV Lasix, echocardiogram pending
-Cardiology service has been consulted
#4. Neurosarcoidosis versus multiple sclerosis. Patient had an MRI performed in March 2024 which showed moderate to severe white matter disease in the frontal and parietal lobe which have increased over the year. Diagnosis possibilities
included neurosarcoidosis whether versus other demyelinating diseases.
-Continue high-dose steroids currently
#5. Vocal cord paralysis, aspiration risk, s/p PEG tube. Reported h/o regurgitation of tube feed.
-Hold tube feeding
-IV PPI BID
-IV Antibiotics
-Head end raised
DVT Prophylaxis: Lovenox
Update regarding call to transfer center at [facility]. I discussed the case with on-call sports administrator who recommended discussing with chemical processor on-call due to profound hypoxia. I subsequently received a call from the chemical processor on-call at of
[place]. He expressed that patient is severely hypoxic and not safe for transfer and will need to be intubated for transfer. Secondly he expressed concern that patient's weight is 43 kg and has vocal cord paralysis with aspiration risk and currently
on tube feeding which might be a barrier towards her candidacy for transplant but he will update me after further discussion with the transplant team. I updated patient's daughter regarding this conversation and she stated clearly that she would
not want her mother to be intubated for the purpose of transfer to [facility].
Critical Care time 95 mins -- The patient is admitted for acute critical illness for the treatment of vital organ failure and/or prevention of further life-threatening conditions. Total care includes time spent in review of history, physical exam,
medications, hemodynamic/ventilator parameters, laboratory data, imaging and discussion with house staff, pharmacy, respiratory therapy, pantry cook, and nursing.
[2024-07-20 17:19] LABS: Procalcitonin 0.15 ng/ml (0.0-0.25)
[2024-07-20] MEDS: PULMICORT 0.5 MG INH (18:01)
[2024-07-20] MEDS: FLAGYL 500 MG 100 IV (18:15)
[2024-07-20] MEDS: SOLU-MEDROL 54 MG IV (18:15)
[2024-07-20] MEDS: LOVENOX 40 MG SC (18:15)
[2024-07-20] MEDS: MAXIPIME 2000 MG IV (18:15)
--- NOTE | 2024-07-20 18:23 | PHA.VAN.IN ---
Assessment
- Assessment
Renal Function: Appears similar to baseline (SCr 0.4/ CrCl 66)
Concomitant Antimicrobials: Metronidazole, Cefepime
Plan
- Plan
Initial / Loading Dose: Vanco 1000mg load administered 07/20/24 1537
Maintenance Regimen: Dose by level
Monitoring: R lvl 07/21/24 0600
Pharmacokinetics Vancomycin I
- -
Patient Age: 64
Patient Sex: Female
Vancomycin Day #: 1
Indication: Pulmonary/Respiratory
Requesting Provider: ROSY
Pertinent Antimicrobial Allergies:
Sulfa Antibiotics - Rash
Height / Weight:
Height 5 ft 2 in
Actual Weight 40.9 kg
- Vital Signs / Lab Results
Temp Pulse Resp BP Pulse Ox
97.6 F 126 30 148/80 94
07/20/24 17:47 07/20/24 18:06 07/20/24 18:06 07/20/24 16:30 07/20/24 18:06
Lab Results - Hematology
07/20/24
12:31
WBC 27.2 H
Lab Results - Chemistry
07/20/24
12:32
BUN 25 H
Creatinine 0.4 L
Estimated Creat Clear 66
Albumin 3.8
Microbiology Results
07/20/24 12:09 Influenza Types A & B (DIPIKA) - Final
Nasal Swab Negative for Influenza A & B, NAAT
Negative results must be combined with clinical observations
and patient history.
Nucleic Acid Amplification test (NAAT)performed on the
[employer] platform.
--- NOTE | 2024-07-20 19:21 | PTCARENOTE ---
Pt received from the ER, she appears to be in resp. distress, currently on HF 55L 100% with a NRB in place. Pt is unable to speak verbally but is able to communicate by nodding her head. She is Ox3, forgetful, CAI +4 strength in arms +2 in legs.
Sinus tach in the 130's, + pulses, no edema. At initial assessment pt had in/ex wheezing with very little air movement, tachypneic in the high 30's-40's. After duoneb, she ceased wheezing but shallow breaths and tachypnea remain. PEG in place,
holding feeds currently. Pt is NPO but is very motivated to drink. Performed mouth care and gave her some swabs. Pt and family taught about strict NPO. Pt normally has nectar thickened liquids at home. Pham catheter in place draining pale yellow
urine. Cachectic but skin is clear. R AC IV intact, pt receiving int ABx and steroids. Call valenzuela within reach. All questions answered for pt and family.
[2024-07-20] MEDS: PROTONIX IV 40 MG IV (19:40)
[2024-07-20] MEDS: NSS (PRESERVATIVE FREE) 10 ML IV (19:40)
--- NOTE | 2024-07-20 20:07 | PTCARENOTE ---
Received pt from previous RN. Family at bedside. Pt is AAOx3, pt unable to verbally speak, mouths words, nods head appropriately, forgetful @ times. Sinus tach on the monitor. Pt on highflow 55L 100%, O2 sat 94%, lungs wheezing/rhonchi,
shallow/tachypneic. PEG in place. Pt NPO, ICU SPORT INTERNSHIP aware can give ice chips for comfort. Pt cachectic. Pham in place, hygiene provided. CHG bath provided. Pt turning herself. Call valenzuela in reach. Safe environment maintained.
[2024-07-20 20:17] LABS: INR 1.01; PT 13.6 Sec (11.4-14.6)
[2024-07-20 20:18] LABS: APTT 29.2 Sec (23.4-35.0)
[2024-07-20 20:53] LABS: Glucose - Point of Care 171 mg/dl (70-99)
[2024-07-20 21:04] LABS: Venous Blood Gas B.E. 22.6 mmol/L (-4 to +4); Venous Blood Gas HCO3 54.1 mmol/L (22-27); Venous Blood Gas O2 Sat % 92.8 %; Venous Blood Gas pO2 65 mmHg (30-50)
[2024-07-20 21:06] LABS: Venous Blood Gas pCO2 110 mmHg (35-48)
[2024-07-20] MEDS: NOVOLOG FLEXPEN 1 UNITS SC (21:06)
[2024-07-20] MEDS: NSS (PRESERVATIVE FREE) 0.125 ML IV (21:25)
[2024-07-20] MEDS: NOVOLOG FLEXPEN-LOW RESISTANCE 1 UNITS SC (23:08)
[2024-07-20 23:09] LABS: Glucose - Point of Care 191 mg/dl (70-99)
[2024-07-21] VITALS (28 sets, daily range): BP systolic 35–137; BP diastolic 19–77; BMI 16.1
--- NOTE | 2024-07-21 00:04 | PTCARENOTE ---
Pt obtunded, not waking up with turning, verbal or tactile response. ICU INTERMEDIATE CARD TENDER in to see the pt. RT notified. Pt will be placed on NIV. Plan of care discussed with . Pt with decreased urine output, ICU INTERMEDIATE CARD TENDER notified.
[2024-07-21] MEDS: MAXIPIME 2000 MG IV (02:04)
[2024-07-21 02:07] LABS: Venous Blood Gas B.E. 22.8 mmol/L (-4 to +4); Venous Blood Gas HCO3 55.7 mmol/L (22-27); Venous Blood Gas O2 Sat % 99.4 %; Venous Blood Gas pH 7.24 (7.32-7.43); Venous Blood Gas pO2 112 mmHg (30-50)
[2024-07-21 02:09] LABS: Venous Blood Gas O2 Therapy 100
[2024-07-21 02:13] LABS: Venous Blood Gas pCO2 > 115 mmHg (35-48)
--- NOTE | 2024-07-21 03:38 | W.PN.UPDATE ---
Update Note
Progress Note Update
Procedure Note: Arterial Line�
� Right Wrist Arrow 20 (06/12)�
Diagnosis:��Acute hypercarbic respiratory failure
IV Line Comments: Uneventful Procedure�
Tee's test completed pre-procedure: Yes�
A-Line Comments: Sterile technique as per standard protocol, Ultrasound guided insertion�
Functioning A-line in situ: Yes�
A-line Insertion Start Time:�0325
A-line in at:��0330
[2024-07-21 03:52] LABS: Glucose - Point of Care 165 mg/dl (70-99)
--- NOTE | 2024-07-21 03:54 | PTCARENOTE ---
Systems reviewed. NIV settings increased 25/5 100%, O2 sat 97%. Aida placed, zeroed and transduced. AM labs provided. Pt with no urine output, ICU BLADE OPERATOR notified. Family at bedside. Safe environment maintained.
[2024-07-21 04:00] LABS: B.E. 21.8 mmol/L; PO2 127 mmHg (83-108); pH 7.21 (7.35-7.45)
[2024-07-21 04:02] LABS: HCO3 54.8 mmol/L (21-28); PCO2 > 115 mmHg (32-35)
[2024-07-21 04:12] LABS: Hematocrit 33.6 % (37.0-47.0); Hemoglobin 10.5 g/dL (12.0-16.0); Mean Corp Hgb Conc. 31.3 g/dL (33.0-37.0); Mean Corpuscular Hgb 31.4 pg (27.0-31.0); Mean Corpuscular Volume 100.6 fL (81.0-99.0); Platelet Count 541 10^3/uL (130-400); Red Blood Cell Count 3.34 10^6/uL (4.20-5.40); Red Cell Dist. Width 13.2 % (11.5-14.5)
[2024-07-21 04:29] LABS: Vancomycin Random 7.4 ug/ml
[2024-07-21 04:30] LABS: ALT (SGPT) 92 U/L (0-35); AST (SGOT) 50 U/L (14-36); Albumin 3.2 g/dl (3.5-5.0); Alkaline Phosphatase 139 U/L (38-126); Blood Urea Nitrogen 44 mg/dl (7-17); Calcium 9.9 mg/dl (8.4-10.2); Chloride 84 mmol/L (98-107); Estimated Creatinine Clearance 46 ml/min; Glucose 167 mg/dl (70-99); Potassium 6.3 mmol/L (3.5-5.1); Sodium 138 mmol/L (135-145); Total Bilirubin 0.4 mg/dl (0.2-1.3); Total Protein 6.5 g/dl (6.3-8.2); eGFR > 60.00
[2024-07-21] MEDS: DEXTROSE 50% SYRINGE 25 GRAMS IV (04:42)
[2024-07-21] MEDS: NOVOLIN R 10 UNITS IV (04:46)
[2024-07-21 04:50] LABS: Carbon Dioxide 41 mmol/L (22-30)
[2024-07-21] MEDS: LASIX 40 MG IV (04:51)
[2024-07-21 05:30] LABS: Glucose - Point of Care 286 mg/dl (70-99)
[2024-07-21] MEDS: NOVOLOG FLEXPEN-LOW RESISTANCE 3 UNITS SC (05:46)
[2024-07-21 06:08] LABS: B.E. 23.2 mmol/L; PO2 157 mmHg (83-108); pH 7.29 (7.35-7.45)
[2024-07-21 06:11] LABS: HCO3 54.3 mmol/L (21-28); PCO2 113 mmHg (32-35)
[2024-07-21] MEDS: DUONEB 3 ML INH ×2 (07:30→11:19)
[2024-07-21] MEDS: PULMICORT 0.5 MG INH (07:30)
--- NOTE | 2024-07-21 07:36 | W.PN.INTV ---
Today's Communication / Plan
Recommendations
Add ativan and morphine PRN
Stop ABGs unless there is clinical change in mentation, NIV if needed
Stop lasix, IVFs added
Keep NPO for now
Decrease IV steroids, not sure how much benefit at this point
IV abx continued for aspiration
Prolonged discussion with family today, she is DNR, we will continue care as is without escalation
Assessment
-
Patient is a 64-year-old female with likely end-stage sarcoidosis, chronic hypoxic and hypercapnic respiratory failure, vocal cord paralysis on tube feeding who presents to the emergency room via EMS with respiratory distress. Patient had about a
month-long hospitalization at [facility] for respiratory failure and was discharged home about 5 days ago. Patient reportedly over the last 5 days started developing more shortness of breath and ended up in the emergency room. Patient was
found to be profoundly hypoxic with worsening interstitial opacities and was tried on BiPAP which she was not able to tolerate and developed desaturations. She was subsequently transitioned to high flow nasal cannula and maxed out. Subsequently a
nonrebreather was also placed on top of it and in view of profound hypoxia, pulmonary consultation was requested for further input. Decision was eventually made to admit her to the ICU due to her tenuous respiratory status.
Acute on chronic hypoxic and hypercapnic respiratory failure, severe
End stage Sarcoidosis.
Acute on chronic heart failure, suspect underlying cor pulmonale, ?Cardiac Sarcoidosis
Neurosarcoidosis versus multiple sclerosis.
Vocal cord paralysis, aspiration risk, s/p PEG tube, possible aspiration at home
Superimposed aspiration PNA cannot be excluded
Oliguria
Conditions present MANAGER SURGICAL
Interstitial Lung Disease
Sarcoidosis, evaluated at [facility] for transplant and was not felt to be a candidate for lung transplant
Originally followed at [facility], family felt they were not offering transplant several years ago--transferred for 2nd opinion at [facility]/declined
Essential Hypertension
Generalized Anxiety Disorder
Bilateral Breast Implants (Left side appears ruptured)
Cholecystectomy
Plan
Now on HFNC, NRB
Alternating wtih NIV due to MS
ABGs PRN, has not had CO2 <100 yet
Not on pressors, possible CHF component
Lasix added, but patient is oliguric
Last ECHO in Apr not showing significant VHD, PH, EF normal
Cards consulted, appreciate help
Current worsening with significant worse interstitial changes could be due to Acute exacerbation of ILD, Volume overload vs interstitial pneumonia.
With her vocal cord paralysis and tube feeding regurgitation, aspiration is also in differential diagnosis.
She has no prior imaging here at for comparison
She is known to [facility], [facility] has declined for transplant, [facility] has not formally answered us in terms of candidacy
Started Solumedrol 250 mg IVPB daily-will change to 40 BID dosing
IV Vancomycin and Cefepime. Patient had a month long hospitalization at [facility] in June 2024. Follow-up cultures.
Procalcitonin is only 0.15 making acute bacterial infection less likely.
Hold tube feeding with aspiration risk
Reviewed Dr. Lee's clinic notes. Patient has been on methotrexate and prednisone.
Antifibrotic's were not considered because of patient's cachexia and progressive weight loss.
Emergency room physician also discussed with Dr. Lee today he expressed that all therapies for sarcoidosis treatment have been exhausted and patient has end-stage sarcoidosis.
Family states she has declined rapidly in the past year.
Patient's BNP is 5500 along with elevated troponin. Patient has significant pedal edema, abnormal LFTs which could be related to chronic passive congestion.
Cardiac MRI in April 2024 showed a small amount of myocardial enhancement in the inferior wall of the left mid ventricle with diagnostic possibilities included mild cardiac sarcoidosis versus mild scarring
Cardiology service has been consulted
Lasix to be stopped can add back on IVFs for comfort
We will minimize interventions
Patient had an MRI performed in March 2024 which showed moderate to severe white matter disease in the frontal and parietal lobe which have increased over the year.
Diagnosis possibilities included neurosarcoidosis whether versus other demyelinating diseases.
Continue IV steroids currently
Reported h/o regurgitation of tube feed.
Hold tube feeding, keep NPO
IV PPI BID
IV Antibiotics
Head end raised/aspiration precautions
Can re-eval for trickle feeds is improving
DVT Prophylaxis: Lovenox
Prognosis overall exceedingly poor
She is DNR
Family Discussions
Dinesh 07/21- Spoke with and daughter today at bedside- we had a very prolonged discussion this AM on her GO. They understand her prognosis is poor and we discussed the likelihood that [facility] would accept for transplant. In my opinion, she
would likely not qualify nor survive the surgery, let alone be placed on high priority list as a recipient. They have not called back for final response. Daughter understands that this care thus far has been futile and she does not wish for her
mother to suffer, she was agreeable to ativan/morphine PRN. still wishes to fight. I think it would be reasonable to continue care as is, without escalation and that the family should spend as much time with her as possible. The patient
indicated that she was not yet ready for comfort measures. We will continue discussions in setting of worsening clinical deterioration.
Sae 07/20- Patient is in severe respiratory failure and on High flow cannula at 100% FiO2 along with Non-rebreather with pO2 of 70. PF ratio 70. Patient expressed very clearly that she would not want to be intubated. I explained to her as well as
family at bedside that her prognosis is very poor and her oxygen level is very low despite maximum amount of O2 we can give without intubating. Patient and her medical power of Brokerage Coordinator, daughter, Deja, both expressed understanding of likely
end stage Sarcoidosis and that she might not survive this hospitalization.
I met with family and patient multiple times through the evening and called [facility] transfer center also, as she has been evaluated there in the past for transplant candidacy. Patient and family told me that she was not felt to be a transplant
candidate at [facility].
Update regarding call to transfer center at [facility]. I discussed the case with on-call mechanical spreader operator who recommended discussing with veterinary surgeon on-call due to profound hypoxia. I subsequently received a call from the veterinary surgeon on-call at of
[facility]. He expressed that patient is severely hypoxic and not safe for transfer and will need to be intubated for transfer. Secondly he expressed concern that patient's weight is 43 kg and has vocal cord paralysis with aspiration risk and currently
on tube feeding which might be a barrier towards her candidacy for transplant but he will update me after further discussion with the transplant team. I updated patient's daughter regarding this conversation and she stated clearly that she would
not want her mother to be intubated for the purpose of transfer to [facility].
Diagnostic Data
CT chest 07/20/24- 1. No evidence for pulmonary embolism.
2. Extensive bilateral airspace disease, acutely worsened within both lower lobes and right upper lobe when compared to prior CTs. Findings likely represent acute multifocal pneumonia superimposed upon chronic lung disease related to patient's
sarcoidosis.
3. Again seen are numerous calcified hilar and mediastinal lymph nodes compatible with history of sarcoidosis.
4. Small right and trace left pleural effusions.
All relevant studies/imaging reviewed.
Critical Care time 81 mins -- The patient is admitted for acute critical illness for the treatment of vital organ failure and/or prevention of further life-threatening conditions. Total care includes time spent in review of history, physical exam,
medications, hemodynamic/ventilator parameters, laboratory data, imaging and discussion with house staff, pharmacy, respiratory therapy, loader helper sorting yard, and nursing.
Subjective Dataa
Subjective Data
Date of Service:
Date of Service: July 21, 2024
Chief Complaint: Scleroscope Tester Follow Up
Subjective:
Events ON noted, placed on NIV due to unresponsiveness, CO2>115 on ABG
Serial gases reviewed with CO2 levels sustained above 100 despite NIV use
This AM she is restless, pulling the mask off
Family at bedside
Objective Data
Data Reviewed
Vital Signs / I&O / Oxygen:
Vital Signs
Temp Pulse Resp BP Pulse Ox
98.0 F 126 49 122/69 98
07/21/24 03:29 07/21/24 06:00 07/21/24 06:00 07/21/24 06:00 07/21/24 06:00
Intake and Output
07/20/24 07/21/24 07/22/24
06:59 06:59 06:59
Output Total 1555 / 1555
Balance -1555 / -1555
SaO2 [NIV (Non Invasive 98
Ventilation)]
SaO2 98
Nasal Cannula flow liters per 55
minute
Physical Exam
General: Respiratory Distress (moderate), Poor Appetite and Other (cachectic/chronically ill appearing)
HEENT: Normocephalic, Anicteric and Other (dry MM)
Cardiovascular: S1-S2 and Regular Rhythm
Respiratory: Crackles (overall severely diminished) and Accessory Resp Muscle Use
GI: Soft, Non Distended and Non Tender
Neurology: Awake, Alert and Lethargic (restless/agitated at times)
Skin: Warm and Dry
Labs/Micro/Reports
Lab Data
07/21/24 03:48
Laboratory Results
07/20/24 07/20/24 07/20/24
12:32 13:19 18:00
PT 12.9
INR 0.94
APTT 28.9
pH 7.37 7.35 Cancelled
pCO2 101 H* 100 H* Cancelled
pO2 83 70 L Cancelled
HCO3 58.4 H* 55.2 H* Cancelled
O2 Delivery Level Not Reportable Cancelled
07/20/24 07/20/24 07/20/24
19:53 19:53 19:53
PT 13.6 Cancelled
INR 1.01 Cancelled
APTT 29.2
pH
pCO2
pO2
HCO3
O2 Delivery Level
07/21/24 07/21/24 07/21/24
01:10 03:48 05:50
PT
INR
APTT
pH Cancelled 7.21 L Cancelled
pCO2 Cancelled > 115 H* Cancelled
pO2 Cancelled 127 H Cancelled
HCO3 Cancelled 54.8 H* Cancelled
O2 Delivery Level Cancelled Cancelled
07/21/24
06:03
PT
INR
APTT
pH 7.29 L
pCO2 113 H*
pO2 157 H
HCO3 54.3 H*
O2 Delivery Level Not Reportable
Microbiology
07/20/24 12:09 Nasal Swab Influenza Types A & B (DIPIKA) - Final
Negative for Influenza A & B, NAAT
Negative results must be combined with clinical observations
and patient history.
Nucleic Acid Amplification test (NAAT)performed on the
[employer] platform.
[2024-07-21 07:59] LABS: Glucose - Point of Care 103 mg/dl (70-99)
[2024-07-21] MEDS: NSS (PRESERVATIVE FREE) 10 ML IV (08:07)
[2024-07-21] MEDS: PROTONIX IV 40 MG IV (08:07)
[2024-07-21] MEDS: FLUSH (NSS) 1 FLUSH IV (08:08)
--- NOTE | 2024-07-21 08:35 | W.PN.CD ---
Today's Communication / Plan
-
hold lasix
continue supportive care
ongoing GOC discussion
Impression / Plan
-
I/P: 64F with sarcoidosis (significant pulmonary involvement), chronic hypoxic respiratory failure, and vocal cord paralysis presents after prolonged admission at with sepsis in the setting of PNA
Primary strap buckler machine: Dr. Arenas
Acute on chronic hypoxic and hypercarbic respiratory failure,in the setting of end stage Sarcoidosis
-continues to decline, doesn't want NRB, did tolerate much NIV
-CO2 is >100 ph now 7.28 HCO3 51.2 pO2 78
-possible aspiration event contributing
-element of CHF may be contributing
-Pulmonary following d/w [facility] transfer setting, she is refusing Intubation that would be needed for safe transfer
-unlikely to be transplant candidate, per family already refused at [facility]
-maximally supported with oxygen
-abx, steroids, received IV lasix early am due to hyperkalemia.
-would hold further lasix, uop slowing appears dry
HFpEF, acute
- May some myocardial involvement on Sarcoid:getting steroids
- MRI: Small amount of myocardial enhancement in the inferior wall of the left mid ventricle. LVEF 44%
-Likely Cor pulmonarle as well
-In my limited review of the CMR images 07/21/24, the right ventricle is enlarged. Unfortunately the right ventricular findings are not reported on. It was not well seen on the last echo.
- continue IV lasix as needed
- Trend daily weight, I/O, and BMP with diuresis
Abnormal troponin, type II OH - in the setting of acute hypoxic respiratory failure
- No chest pain
- Troponin on presentation 0.489 was the peak
- Trivial luminal irregularities by cardiac catheterization 04/05/2024
- Echocardiogram when heart rate is more controlled
Sarcoidosis:
-lung involvement, suspect cardiac, ?neuro
-apparently has 'exhausted all treatements' per chart review and documented discussion with op provider: Dr. Lee at [facility].
-steroids, supportive care
Hyperkalemia;
-received appropriate lasix/insulin therapy, repeat levels pending
Abnormal LFTs, perhaps in the setting of sepsiscautions
Underweight, BMI 17
GOC: She is critically ill, lengthy discussion with her daughter Deja, Dr Neely and ICU nursing Lizet--goal is to continue current care, would not escalate to vasopressors, will help with airhunger and continue full support until more family
arrives and further reevaluation.
Subjective:
She is awake and alert but doesn't participate further
CCT 42 minutes
Physical Exam
Vital Signs/Labs
Vital Signs
Temp Pulse Resp BP Pulse Ox
98.4 F 129 24 122/69 98
07/21/24 08:20 07/21/24 07:51 07/21/24 07:51 07/21/24 06:00 07/21/24 07:51
07/20/24 07/21/24 07/22/24
06:59 06:59 06:59
Actual Weight 88 lb 2.958 oz
07/21/24 03:48
PT 13.6 Sec (11.4-14.6) 07/20/24 19:53
PT Cancelled 07/20/24 19:53
INR 1.01 07/20/24 19:53
INR Cancelled 07/20/24 19:53
APTT 29.2 Sec (23.4-35.0) 07/20/24 19:53
07/20/24
12:31
Tqx-[id number]-Ayunviyjixa Pept 5520
LAB Results
07/20/24 07/20/24 07/20/24
12:31 16:33 22:30
Troponin I 0.489 H* 0.470 H* Cancelled
Physical Exam
Constitutional: Comfortable and Other (cachectic)
Cardiovascular: Rhythm & rate is regular (tachy), Pedal edema is absent, Systolic murmur absent and Diastolic murmur absent
Respiratory: Respiratory effort normal (labo), Crackles Present, Rhonchi Present and Other (labored effort)
Neuro/Psych: Alert
Data Reviewed
-
Date of Service: July 21, 2024
Medical Decision Making: Review of Case with other Provider (Dr neely ICU nurse alissa Hinds to hold lasix)
--- NOTE | 2024-07-21 08:50 | PTCARENOTE ---
Rec'd pt at 0730 resting in bed with familyl at the bedside. Pt initally with eyes closed but with stimulation and intermittently on her own will open her eyes. Seems to nod appropriately intermittently, then at other times doesn't follow commands.
Overall this am pt is restless trying to move around in the bed and pull off her NIV mask. CAI. No speech-pt with hx of vocal cord paralysis. Respirs are shallow and very tachypnic/labored in the 40's. NIV settings adjusted and currentlyon 100% FIo2
Backup of 12, Tv 300, peep 5. Sats are 96-97%. Pt getting TV of 212-408. PP 23. BS are decreased and coarse throughout. No cough noted. Monitor STach. VS as documented. Pt with R radial [place] that most of the time is within 10-15 mm/hg of cuff BP.
Zeroed and recalibrated. SL bruising at site but no hematoma. + pulses. DP pulses are weak. No edema. Abd is soft with hypoactive BS. Labd PEG tube is clamped. Pham intact for mini,mal amts of yellow urine. Capped ints intact L hand and R ac.
Jain in this am to discuss plan and goals of care. Family does not want intubation or pressors. Turned and repositioned. Skin care given. BMP and ABG's sent. Plan of care reviewed with the family.
[2024-07-21] MEDS: MORPHINE SULFATE 1 MG IV ×4 (09:01→17:04)
[2024-07-21 09:03] LABS: B.E. 20.7 mmol/L; O2 Saturation % 97.2 % (94-98); PO2 78 mmHg (83-108); pH 7.28 (7.35-7.45)
--- NOTE | 2024-07-21 09:05 | PTCARENOTE ---
Medicated with Morphine 1 mg IV per md order at 0901 to help relax breathing. Family requesting to hold off on Ativan at this time. They are requesting the High Flow to be put back on. Resp therapy in and will place pt back on High flow 55L 100% +
NRB mask as needed with the plan to go back on the NIV if pt becomes obtunded again.
[2024-07-21 09:06] LABS: HCO3 51.2 mmol/L (21-28); PCO2 109 mmHg (32-35)
[2024-07-21 09:19] LABS: Blood Urea Nitrogen 54 mg/dl (7-17); Calcium 9.7 mg/dl (8.4-10.2); Chloride 84 mmol/L (98-107); Estimated Creatinine Clearance 37 ml/min; Glucose 91 mg/dl (70-99); Potassium 5.4 mmol/L (3.5-5.1); Sodium 140 mmol/L (135-145); eGFR > 60.00
--- NOTE | 2024-07-21 09:36 | PHA.VAN.FU ---
Vancomycin Assessment / Plan
- Assessment
Renal Function: SCR Increasing (BASELINE ~0.4 MG/DL)
WBC's are: Trending Down
In the past 24 hrs, patient has been: Afebrile
Concomitant Antimicrobials: CEFEPIME
- Assessment - Therapeutic Drug Monitoring
Random Level: 7.4 DRAWN ~12 HR AFTER PREVIOUS DOSE 07/20 VANCO 1000MG @1537
- Dosing Plan
Dosing by Level: Re-dose today (VANCO 750MG X1)
- Monitoring Plan
Random Level: 07/22 @0600
- Follow Up
Pharmacy will continue to follow.
Vancomycin Follow UP
- -
Patient Age: 64
Patient Sex: Female
Vancomycin Day #: 2
Indication: Pulmonary/Respiratory
Requesting Provider: ROSY
Pertinent Antimicrobial Allergies:
Sulfa Antibiotics - Rash
Height / Weight:
Height 5 ft 2 in
Actual Weight 40 kg
- Vital Signs / Lab Results
Temp Pulse Resp BP Pulse Ox
98.4 F 129 24 122/69 98
07/21/24 08:20 07/21/24 07:51 07/21/24 07:51 07/21/24 06:00 07/21/24 07:51
Lab Results - Hematology
07/20/24 07/20/24 07/21/24
12:31 20:17 03:48
WBC 27.2 H Cancelled 23.0 H
Lab Results - Chemistry
07/20/24 07/21/24 07/21/24
12:32 03:48 08:50
BUN 25 H 44 H 54 H
Creatinine 0.4 L 0.8 1.0
Estimated Creat Clear 66 46 37
Albumin 3.8 3.2 L
Microbiology Results
07/20/24 12:09 Influenza Types A & B (DIPIKA) - Final
Nasal Swab Negative for Influenza A & B, NAAT
Negative results must be combined with clinical observations
and patient history.
Nucleic Acid Amplification test (NAAT)performed on the
[employer] platform.
Therapeutic Drug Monitoring
Random Vancomycin 7.4 ug/ml 07/21/24 03:48
[2024-07-21 09:48] LABS: Carbon Dioxide 44 mmol/L (22-30)
--- NOTE | 2024-07-21 10:00 | PTCARENOTE ---
Lian Agustin and Srinivas in to see pt. Pt anxious on NIV ventilation- trying to pull off mask. Transitioned to High FLow + NRBmask around 0930 but was pulling at the NRB mask. Will keep pt on just the High flow for now- Currently pt
opening eyes on occasion intermittently nodding. Respirs are shallow and tachypnic but sl less labored since the Morphine dose. Family wants to wait on additional sedation for now. Awaiting pts son who is flying in from out of state. Vs as
documented.
[2024-07-21] MEDS: D5/0.9% SODIUM CHLORIDE 1000 IV (10:28)
[2024-07-21] MEDS: SOLU-MEDROL PF 40 MG IV (10:33)
[2024-07-21] MEDS: STERILE WATER FOR INJECTION 10 ML IV (10:34)
[2024-07-21] MEDS: MAXIPIME 1000 MG IV (10:34)
[2024-07-21] MEDS: VANCOCIN 150 IV (10:35)
--- NOTE | 2024-07-21 11:09 | PTCARENOTE ---
Family at the bedside. Tearful. Respirs are shallow and tachypnic. Pt mostly restful but will still intermittently open her eyes. VS as documented. Morphine reoffered but currently family wants to wait as they expecting an additional family member.
Supportive care given and family made aware that if pt looks any more uncomfortable will medicate
--- NOTE | 2024-07-21 12:00 | PTCARENOTE ---
Pt overall more obtunded and with more agonal respirs RR in the 20's Family would like to just keep the High flow cannula and not the NIV. Dr. Jain updated. No other changes. IV fluids infusing D5NS at 80 ml/hr via RAC IV site since 1030. Vancomycin
750 mg IV given at 1030 as ordered.
[2024-07-21] MEDS: NOVOLOG FLEXPEN-LOW RESISTANCE SC (12:30)
--- NOTE | 2024-07-21 13:15 | PTCARENOTE ---
Family all at the bedside very tearful. Expressing how they want her to just be comfortable. Support given. Hannah in earlier. Pt unresponsive with agonal breathing that at time has agonal gasping- as such pt remedicated with Morphine 1 mg IV at
family request for comfort. VS as documented. Bp running in the 70-80's syst. HR in the 90's. Remains on just the High flow with sats of 90-92%., RR in general slower throughout the shift- now in the 19-21 range.
--- NOTE | 2024-07-21 13:17 | W.PN.HOSP.TC ---
Today's Communication/Plan
-
Assessment / Plan
Assessment / Plan
General: Respiratory distress, severely tachypneic, emaciated
HEENT: NormoCephalic, dry mucous membranes, high flow nasal cannula in place
Respiratory: Significant accessory muscle use, diffuse crackles bilaterally, no wheezing
Cardiac: Regular Rhythm, tachycardic with heart rate around 115
GI: Soft, Non Tender, Non Distended, PEG tube in place
Musculoskeletal: Mild pedal edema, no deformity, severely decreased muscle bulk throughout
Skin: Warm and dry
: NO Pham
Neuro: Awake but drowsy, Nonfocal/grossly intact
Psych: Anxious, cooperative
Ms. Enriquez is a 64-year-old female with a medical history of pulmonary sarcoidosis, chronic respiratory failure, vocal cord paralysis, and recent prolonged admission at [facility] for respiratory failure presented via EMS with
respiratory distress. Family was present at bedside including one of her daughters who is a nurse at [employer] and also the patient's POA. Patient developed vocal cord paralysis during her hospitalization at [facility] from 06/11 through 07/12 and subsequently
required PEG tube placement. In the ED today, patient is awake and alert although unable to communicate verbally due to severe tachypnea and increased work of breathing. Family notes new onset pedal edema today. Labs were significant for
leukocytosis of 27,000, arterial blood gas showing severe hypercarbia with a PCO2 of 100, BNP of 5000, troponin of 0.48, and elevated LFTs (AST 73/ALT 105/alk phos 134). Chest imaging showed no evidence of PE but did show acutely worsened bilateral
airspace disease compared to previous imaging likely representing acute multifocal pneumonia superimposed on her pulmonary sarcoidosis. She was unable to tolerate BiPAP but is a bit more comfortable now on high flow nasal cannula and nonrebreather
mask. She has been started on broad-spectrum antibiotics and admitted for further evaluation and management. The patient and her POA do not want intubation even in the short-term.
Acute on chronic respiratory failure with hypoxia:
- Patient does not want to be intubated, continuing current care with high flow nasal cannula without escalation, noninvasive ventilation as needed
- Likely secondary to aspiration pneumonia superimposed on end-stage pulmonary sarcoidosis
- Continue broad-spectrum antibiotics and follow-up cultures
- Continue breathing treatments
- No further Lasix, decrease steroids as likely not helping
- Ativan and morphine as needed for comfort
- Holding tube feeds to avoid aspiration, giving IV fluids with dextrose
Severe sepsis secondary to suspected aspiration pneumonia:
- Superimposed on advanced pulmonary sarcoidosis
- Continue broad-spectrum antibiotics, cultures negative to date
- IV fluids
Elevated troponin:
- Elevated but stable troponins around 0.4
- Likely secondary to acute respiratory distress
-Cardiology following, do not suspect acute cardiac process, no need for heparin drip
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
- Continue to address primary pulmonary pathology
Abnormal LFTs:
- Mild, stable, unclear etiology, possibly due to vascular congestion or hepatic involvement of her sarcoidosis
- Will monitor, if not resolving can get dedicated liver imaging
CODE STATUS: DNR
Anticipated Discharge: > 48 hours
Subjective/Interval History
-
Date of Service: July 21, 2024
Patient was seen and examined at bedside this morning. Multiple family members at bedside. Patient remains critically ill saturating in the low 90s and tachycardic on high flow nasal cannula. Decision made to continue with current care without
escalation. No further ABGs unless there is a clinical change in mentation.
Objective Data
-
Labs:
Laboratory Results
07/21/24 07/21/24 07/21/24
01:10 03:48 05:50
WBC 23.0 H
Hgb 10.5 L
Hct 33.6 L
Plt Count 541 H
HCO3 Cancelled 54.8 H* Cancelled
Sodium 138
Potassium 6.3 H*
Chloride 84 L
Carbon Dioxide 41 H
BUN 44 H
Creatinine 0.8
Glucose 167 H
Calcium 9.9
Total Bilirubin 0.4
AST 50 H
ALT 92 H
Alkaline Phosphatase 139 H
07/21/24 07/21/24
06:03 08:50
WBC
Hgb
Hct
Plt Count
HCO3 54.3 H* 51.2 H*
Sodium 140
Potassium 5.4 H
Chloride 84 L
Carbon Dioxide 44 H
BUN 54 H
Creatinine 1.0
Glucose 91
Calcium 9.7
Total Bilirubin
AST
ALT
Alkaline Phosphatase
Vital Signs:
Vital Signs
Temp Pulse Resp BP Pulse Ox
98.4 F 116 40 126/70 91
07/21/24 08:20 07/21/24 11:23 07/21/24 11:23 07/21/24 10:00 07/21/24 11:23
I&O
07/20/24 07/21/24 07/22/24
06:59 06:59 06:59
Intake Total 310 / 310
Output Total 1555 / 1555 200 / 200
Balance -1555 / -1555 110 / 110
Review of Systems
-
History Source: Patient
All other systems: Reviewed and negative
Respiratory: Reports Trouble Breathing
Physical Exam
-
General: Respiratory Distress and Appears Chronically Ill
--- NOTE | 2024-07-21 15:30 | PTCARENOTE ---
Repositioned. Agnoal respirs. VS as documented. Pt remains unresponsive. Family all tearful at the bedside. Support given. Dr. Jain and Srinivas updated.
--- NOTE | 2024-07-21 16:35 | CHAP ---
Called by ICU staff for Cristiane and family. Family requested Sacrament of the Sick for her, and I contacted [facility]. Fr. Becker agreed to come. Meanwhile, we offered prayers from the [employer], thanking God for Cristiane's life and love, and
asking peace for all. Prayer blanket provided, along with assurance of our on-going availability.
--- NOTE | 2024-07-21 16:50 | PTCARENOTE ---
Many family at the bedside and requesting pt be taken off of High Flow and just put on NC. Placed on 4L nc at 1640 with sats at the start 94%- changed over to 2L nc at 1650 with sats of 78%. Pts children tearful. Pt still with agonal - cheo cortez
type respirs. Monitor SR. IV fluids infusing. Minimal urine output. No other changes.
--- NOTE | 2024-07-21 17:10 | PTCARENOTE ---
Remedicated with Morphine 1 mg IV for end of life gasping respirs at the request of family. Sats are in the 50's. Jovon- Patterson type respirs.
[2024-07-21] MEDS: STERILE WATER FOR INJECTION IV (17:24)
--- NOTE | 2024-07-21 17:32 | CM ---
Pt has history of pulmonary sarcoidosis, chronic respiratory failure, vocal cord paralysis, and recent prolonged admission at [facility]. She was at home x 5days after [facility] admission . [facility] does not feel she is transplant
candidate.[facility] may put her on transplant list.She has Peg tube with TF.Large family support.
She is on high flow oxygen with non rebreather
[facility]
PCP Dr Pearce
PLAN Will depend on hospital course of care
--- NOTE | 2024-07-21 17:50 | PTCARENOTE ---
Pts children at the bedside. Struggling with watching their mother. O2 removed at 1745- sats at best around 40 but becoming difficult to hot die picker. BP 30/20's. HR 80. 1750 pt with asystole on the monitor. No pulse. No respirs. No BP. Family very
tearful. [place] in to pray with them.
--- NOTE | 2024-07-21 18:10 | PTCARENOTE ---
Dr. Karthik Johnson in to pronounce pt. Support given to family. All belongings sent home with family.
--- NOTE | 2024-07-21 18:17 | W.PN.DEATH ---
Pronouncement of
-
Called to see patient to pronounce.
No spontaneous heart tones or respirations noted.
Patient not responsive to verbal stimuli.
Patient is pronounced .
Time of : 17:50
Date of : 07/21/24
Cause of : Acute on chronic hypoxic respiratory failure secondary to pulmonary sarcoidosis
Family Notified: Yes
--- NOTE | 2024-07-21 18:19 | W.DCSUMMARY ---
Discharge Summary
Discharge Data
Date of Admission: 07/20/24
Date of Discharge: 07/21/24
-
Pending Results: No
Hospital Course
Ms. Enriquez is a 64-year-old female with a medical history of pulmonary sarcoidosis, chronic respiratory failure, vocal cord paralysis, and recent prolonged admission at [facility] for respiratory failure presented via EMS with
respiratory distress. Family was present at bedside including one of her daughters who is a nurse at [employer] and also the patient's POA. Patient developed vocal cord paralysis during her hospitalization at [facility] from 06/11 through 07/12 and subsequently
required PEG tube placement. In the ED today, patient is awake and alert although unable to communicate verbally due to severe tachypnea and increased work of breathing. Family notes new onset pedal edema today. Labs were significant for
leukocytosis of 27,000, arterial blood gas showing severe hypercarbia with a PCO2 of 100, BNP of 5000, troponin of 0.48, and elevated LFTs (AST 73/ALT 105/alk phos 134). Chest imaging showed no evidence of PE but did show acutely worsened bilateral
airspace disease compared to previous imaging likely representing acute multifocal pneumonia superimposed on her pulmonary sarcoidosis. She was unable to tolerate BiPAP but is a bit more comfortable now on high flow nasal cannula and nonrebreather
mask. She has been started on broad-spectrum antibiotics and admitted for further evaluation and management. The patient and her POA did not want intubation even in the short-term.
Patient was ultimately transitioned to comfort care once all of her family had arrived. She stopped breathing spontaneously and asystole was noted on card processing clerk at 17:50.
Physical exam:
No spontaneous breaths
No heart sounds, no palpable central pulses
Pupils dilated and fixed, corneal reflex absent
No response to noxious stimuli
Patient was pronounced at 17:50. Family present. Condolences offered.
Discharge Plan
-
Patient Disposition:
Date/Time
Date/Time: 07/21/24 17:50
Discharge Date and Time
Print Language: [place] CITIZ[place]
--- NOTE | 2024-07-21 19:00 | PTCARENOTE ---
[facility] notified. Post Mortem care performed. Pt taken to [facility] [place]. Belongings sent with family including jewelry.
[2024-07-23 19:56] LABS: Hepatitis C Antibody Negative (Negative)
== END 2024-07-21 19:00 | disposition expired | DRG 196 ==
LOC: ICU 15:52
PROVIDERS: Internal Medicine; Nurse Practitioner Primary Care; Physician Assistant Medical; ADMITTING PHYSICIAN Internal Medicine; CONSULT PHYSICIAN Internal Medicine Cardiovascular Disease; EMERGENCY PHYSICIAN Emergency Medicine; FAMILY PHYSICIAN Internal Medicine; OTHER PHYSICIAN Internal Medicine
PROC: 5A0935A Assistance with Respiratory Ventilation, Less than 24 Consecutive Hours, High Flow/Velocity Cannula (ICD-10-PCS; 2024-07-20)
PROC: 03HB33Z Insertion of Infusion Device into Right Radial Artery, Percutaneous Approach (ICD-10-PCS; 2024-07-21)
DX: D86.0 Sarcoidosis of lung (principal); A41.9 Sepsis, unspecified organism; J96.21 Acute and chronic respiratory failure with hypoxia; R65.20 Severe sepsis without septic shock; J18.9 Pneumonia, unspecified organism; J69.8 Pneumonitis due to inhalation of other solids and liquids; J96.22 Acute and chronic respiratory failure with hypercapnia; I50.32 Chronic diastolic (congestive) heart failure; J84.9 Interstitial pulmonary disease, unspecified; R64 Cachexia; Z68.1 Body mass index [BMI] 19.9 or less, adult; Z66 Do not resuscitate; Z11.52 Encounter for screening for COVID-19; F32.A Depression, unspecified; F41.1 Generalized anxiety disorder; J38.00 Paralysis of vocal cords and larynx, unspecified; I27.81 Cor pulmonale (chronic); D86.89 Sarcoidosis of other sites; I11.0 Hypertensive heart disease with heart failure; E87.5 Hyperkalemia; R63.6 Underweight; R79.89 Other specified abnormal findings of blood chemistry; Z99.81 Dependence on supplemental oxygen; Z51.5 Encounter for palliative care; Z98.82 Breast implant status; Z93.1 Gastrostomy status; Z88.2 Allergy status to sulfonamides; Z79.899 Other long term (current) drug therapy
CPT/HCPCS: 71045; 71275; 80048; 80053; 80202; 82805; 82962; 83880; 84145; 84484; 85025; 85027; 85610; 85730; 86803; 87040; 87502; 87641; 87811; 93005; 94640; 94660; 96374; 96375; 99291; Q9967